=== PATIENT | male | born 1955 | race African-American/Black ===

== ENCOUNTER 2016-12-03 15:49 | Inpatient (IN) | payer MEDICAID ==
[~2016-12-03] VITALS: Ht 172.7 cm; Wt 54.1 kg
[~2016-12-03 15:49] MED LIST: ACHD5005 PO; AML5T; AMT10T; BISA10SU58 RC; BSC10SU PR; CARB15DR74 OU; CEFD300C3 PO; CODE-54; CYCL10TA45; CYCL10TA9 PO; CYCL5TAB11 PO; DCS100C PO; DEXT1DRO8 OU; DOCU100C37 PO; DRNB2.5C PO; DRON2.5C PO; ETD400T; FERR-57 PO; GBPN300C; GFN600TCR PO; HONE15GE TP; HYDR-2890 PO; HYDR-2997 PO; HYDR-3820 PO; HYDROCODONE; LOPE2TAB23 PO; MAG-5 PO; MAG355OR17 PO; MAGN-47 PO; MAGN-77 PO; MILK OF MAGNESIA CON PO; MULT-608 PO; Mucinex; Mucinex PO; Mylanta PO; NA P133E22 RC; OMEP20TA2 PO; OXB5TCR; OXYB10TA PO; OXYB10TA8 PO; POLY17PO23 PO; RNT150T PO; SERT50TA PO; SERT50TA9 PO; SNN187T PO; SODIUM PHOSPHATE PR; ZINC100T3 PO; [UNRECOGNIZED DRUG - OTHER]
--- NOTE | 2016-12-03 16:07 | ED Neurological Problem ---
General Chief Complaint: General Problems/Pain Stated Complaint: WEAKNESS Source: patient, RN notes reviewed Exam Limitations: clinical condition, physical impairment History of Present Illness Time seen by provider: 16:08 Initial Comments Presents POV from rehab center c/ complaint of not feeling well today. c/o numbness/tingling in his legs. Patient is a paraplegic. Patient not a good historian. Long hx of multiple advanced decubitus ulcers. No known fever. No N/V. Timing/Duration: 4-6 hours, constant Severity: moderate Associated Symptoms: numbness in legs/feet (???) paresthesia (?) tingling in legs/feet (???) weakness (generalized) Allergies and Home Medications Allergies Coded Allergies: No Known Drug Allergies (Verified , 05/19/14) Home Medications TOP BID (Reported) APPLY TO OPEN AREAS ON PENIS AND SCROTUM Bisacodyl 10 Mg Supp.rect 10 MG RC DAILY PRN PRN CONSTIPATION (Reported) Cyclobenzaprine HCl 10 Mg Tablet 10 MG PO Q8H (Reported) Docusate Sodium 100 Mg Capsule 100 MG PO Q12H PRN PRN CONSTIPATION (Reported) Hydrocodone/Acetaminophen 1 Each Tablet 1 TAB PO Q4H (Reported) Mag Hydrox/Al Hydrox/Simeth 360 Ml Oral.susp 30 ML PO Q4H PRN PRN INDIGESTION ( Reported) Oxybutynin Chloride 10 Mg Tab.er.24 10 MG PO DAILY (Reported) Polyethylene Glycol 17 Gm Pack 17 GM PO DAILY PRN PRN CONSTIPATION (Reported) Senna 8.6 Mg Tab 1-4 TAB PO DAILY PRN PRN CONSTIPATION (Reported) Sertraline HCl 100 Mg Tablet 100 MG PO DAILY (Reported) Sodium Hypochlorite 473 Ml Solution TOP BID (Reported) APPLY TO WOUND BEDS EVERY DAY AND FISH DRIER FOR WOUND CARE, CLEANSE WOUNDS WITH WOUND CLEANSER, LIGHTLY PACK WOUNDS WITH DAKINS SOAKED GAUZE, COVER WITH MAINTENANCE DRESSING Constitutional: see HPI weakness Skin: other ((+) chronic decubitus ulcers) Psychiatric/Neurological: See HPI Depressed Unable to Move Lower Ext Other (c/ o pins/needles sensation in BLE despite being paraplegic.) All Other Systems Reviewed Negative Unless Noted: Yes (Negative excepted noted.) Past Azwtadx-Brzeki-Dsngzg Hx Patient Social History Former Smoker/When Quit: Aug 15, 2010 Recent Foreign Travel: No Contact w/Someone Who Travel: No Surgeries HX Surgeries: Yes (WD SURGERIES) Respiratory Hx Respiratory Disorders: No Cardiovascular Hx Cardiac Disorders: No Neurological Hx Neurological Disorders: Yes (PARAPLEGIC) Reproductive System Hx Reproductive Disorders: No Sexually Transmitted Disease: No Genitourinary Hx Genitourinary Disorders: Yes (HEMATURIA) Gastrointestinal Hx Gastrointestinal Disorders: No Musculoskeletal Hx Musculoskeletal Disorders: Yes (ARTHRITIS) Musculoskeletal Disorders: Arthritis, Scoliosis Endocrine Hx Endocrine Disorders: No HEENT HX ENT Disorders: Yes Loss of Vision: Denies Hearing Impairment: Denies Cancer Hx Cancer: No Psychosocial Hx Psychiatric Problems: Yes Integumentary HX Skin/Integumentary Disorder: Yes (MULTIPLE DECUB) Blood Transfusions Hx Blood Disorders: No Family Medical History Family Medial History: Patient reports no known family medical history. Physical Exam Vital Signs Vital Sign - Last 12Hours 12/03/16 15:57 Temp 96.4 Pulse 92 Resp 20 B/P 71/40 Pulse Ox 99 O2 Delivery Room Air Capillary Refill : General Appearance: no apparent distress thin HEENT: other (dry oropharynx) Neck: supple Respiratory: lungs clear no respiratory distress Cardiovascular: regular rate, rhythm Gastrointestinal: other (flat) Extremities: other (patient laying on his right side. Has an extensive decubitus left hip/buttock area initially c/ a fecal stained dressing in place. Large amount of feces in wound as well. Patient has the strong odor of rotting tissue/gangrene.) Neurologic/Psychiatric: alert depressed affect Crainal Nerves: normal hearing normal speech Motor/Sensory: other ((+) paraplegia BLE) Skin: cool other (has multiple chronic pressure ulcers/wounds; smells strongly of necrotic tissue/gangrene. ) Progress/Results/Core Measures Results/Orders Lab Results Laboratory Tests Test 12/03/16 16:48 12/03/16 18:05 12/03/16 18:36 Range/Units Alanine Aminotransferase (ALT/SGPT) 12 0-55 U/L Albumin 1.2 L 3.2-4.5 G/DL Alkaline Phosphatase 158 H 40-136 U/L Anion Gap 14 5-14 MMOL/L Anisocytosis MODERATE Aspartate Amino Transf (AST/SGOT) 21 5-34 U/L BUN/Creatinine Ratio 17 Band Neutrophils 30 % Basophils # (Auto) 0.0 0.0-0.1 10^3/uL Basophils % (Manual) 0 % Basophils (%) (Auto) 0 0-10 % Blood Urea Nitrogen 16 7-18 MG/DL Calcium Level 6.2 L 8.5-10.1 MG/DL Carbon Dioxide Level 14 L 21-32 MMOL/L Chloride Level 105 98-107 MMOL/L Creatinine 0.96 0.60-1.30 MG/DL Eosinophils # (Auto) 0.0 0.0-0.3 10^3/uL Eosinophils % (Manual) 0 % Eosinophils (%) (Auto) 0 0-10 % Estimat Glomerular Filtration Rate > 60 Glucose Level 97 70-105 MG/DL Hematocrit 31 L 40-54 % Hemoglobin 8.9 L 13.3-17.7 G/DL Hypochromasia SLIGHT Lactic Acid Level 8.4 *H 7.7 *H 0.5-2.0 MMOL/L Lymphocytes # (Auto) 0.9 L 1.0-4.0 X 10^3 Lymphocytes % (Manual) 14 % Lymphocytes (%) (Auto) 6 L 12-44 % Magnesium Level 3.0 H 1.8-2.4 MG/DL Mean Corpuscular Hemoglobin 22 L 25-34 PG Mean Corpuscular Hemoglobin Concent 29 L 32-36 G/DL Mean Corpuscular Volume 74 L 80-99 FL Mean Platelet Volume 10.5 H 7.4-10.4 FL Microcytosis SLIGHT Monocytes # (Auto) 0.7 0.0-1.0 X 10^3 Monocytes % (Manual) 5 % Monocytes (%) (Auto) 5 0-12 % Neutrophils # (Auto) 13.0 H 1.8-7.8 X 10^3 Neutrophils % (Manual) 51 % Neutrophils (%) (Auto) 89 H 42-75 % Platelet Count 298 130-400 10^3/uL Potassium Level 4.8 3.6-5.0 MMOL/L Red Blood Count 4.12 L 4.35-5.85 10^6/uL Red Cell Distribution Width 25.4 H 10.0-14.5 % Sodium Level 133 L 135-145 MMOL/L Spherocytes SLIGHT Target Cells SLIGHT Total Bilirubin 0.9 0.1-1.0 MG/DL Total Protein 7.6 6.4-8.2 G/DL White Blood Count 14.5 H 4.3-11.0 10^3/uL Urine Bacteria LARGE H /HPF Urine Bilirubin NEGATIVE NEGATIVE Urine Casts NONE /LPF Urine Clarity VERY CLOUDY H Urine Color BROWN H Urine Crystals NONE /LPF Urine Culture Indicated YES Urine Glucose (UA) NEGATIVE NEGATIVE Urine Ketones 2+ H NEGATIVE Urine Leukocyte Esterase 3+ H NEGATIVE Urine Mucus NEGATIVE /LPF Urine Nitrite NEGATIVE NEGATIVE Urine Protein 3+ H NEGATIVE Urine RBC 10-25 H /HPF Urine RBC (Auto) 4+ H NEGATIVE Urine Specific [place] 1.010 L 1.016-1.022 Urine Urobilinogen 12 H NORMAL MG/DL Urine WBC 25-50 H /HPF Urine pH 7 5-9 Micro Results Microbiology 12/03/16 Urine Culture - Preliminary, Resulted Providencia Species My Orders Orders-GREGG CHANDLER DO Saline Lock/Iv-Start (12/03/16 16:09) Cbc With Automated Diff (12/03/16 16:09) Comprehensive Metabolic Panel (12/03/16 16:09) Magnesium (12/03/16 16:09) Ua Culture If Indicated (12/03/16 16:09) Lactic Acid Analyzer (12/03/16 16:28) Blood Culture (12/03/16 16:28) Lactated Ringers (Lr 1000 Ml Iv Solution (12/03/16 17:15) Manual Differential (12/03/16 16:48) Piperacillin Sodium/Tazobactam (Zosyn Vi (12/03/16 17:45) Urine Culture (12/03/16 18:05) Vital Signs/I&O Vital Sign - Last 12Hours 12/03/16 12/03/16 15:57 16:15 Temp 96.4 96.4 Pulse 92 94 Resp 20 24 B/P 71/40 74/55 Pulse Ox 99 96 O2 Delivery Room Air Room Air Departure Communication Time/Spoke to Admitting Phy: 18:00 Impression Impression: Primary Impression: Sepsis Additional Impressions: Paraplegia Decubitus ulcers Disposition: ADMITTED INPATIENT Condition: Critical Decision to Admit Reason: Admit from ER (General) Decision to Admit/Date: Dec 03, 2016 Time/Decision to Admit Time: 18:00 Departure-Patient Inst. Referrals: JEFF CLOUD MD (PCP/Family) Primary Care Physician GREGG CHANDLER DO Dec 03, 2016 16:07
[2016-12-03] MEDS ORDERED: LACTATED RINGERS 1,000 ML IV ONE ×2 (17:15→23:11)
[2016-12-03 17:19] LABS: BASOPHILS % (AUTO) 0 % (0-10); EOSINOPHILS % (AUTO) 0 % (0-10); LYMPHOCYTES # (AUTO) 0.9 X 10^3 (1.0-4.0); LYMPHOCYTES % (AUTO) 6 % (12-44); MEAN CORPUSCULAR HEMOGLOBIN 22 PG (25-34); MEAN CORPUSCULAR HGB CONC 29 G/DL (32-36); MEAN CORPUSCULAR VOLUME 74 FL (80-99); MEAN PLATELET VOLUME 10.5 FL (7.4-10.4); MONOCYTES # (AUTO) 0.7 X 10^3 (0.0-1.0); MONOCYTES % (AUTO) 5 % (0-12); NEUTROPHILS % (AUTO) 89 % (42-75); PLATELET COUNT 298 10^3/uL (130-400); RED BLOOD COUNT 4.12 10^6/uL (4.35-5.85); RED CELL DISTRIBUTION WIDTH 25.4 % (10.0-14.5); WHITE BLOOD COUNT 14.5 10^3/uL (4.3-11.0)
[2016-12-03 17:36] LABS: ALANINE AMINOTRANSFERASE 12 U/L (0-55); ALBUMIN 1.2 G/DL (3.2-4.5); ANION GAP 14 MMOL/L (5-14); ASPARTATE AMINO TRANSFERASE 21 U/L (5-34); BILIRUBIN,TOTAL 0.9 MG/DL (0.1-1.0); BLOOD UREA NITROGEN 16 MG/DL (7-18); BUN/CREATININE RATIO 17; CALCIUM 6.2 MG/DL (8.5-10.1); CARBON DIOXIDE 14 MMOL/L (21-32); CHLORIDE 105 MMOL/L (98-107); CREATININE SERUM 0.96 MG/DL (0.60-1.30); GFR ESTIMATED > 60; GLUCOSE 97 MG/DL (70-105); POTASSIUM 4.8 MMOL/L (3.6-5.0); SODIUM 133 MMOL/L (135-145); TOTAL PROTEIN 7.6 G/DL (6.4-8.2)
[2016-12-03 17:44] LABS: ANISOCYTOSIS MODERATE; BAND NEUTROPHILS 30 %; BASOPHILS % (MANUAL) 0 %; EOSINOPHILS % (MANUAL) 0 %; HYPOCHROMASIA SLIGHT; LYMPHOCYTES % (MANUAL) 14 %; MICROCYTOSIS SLIGHT; NEUTROPHILS % (MANUAL) 51 %; SPHEROCYTES SLIGHT; TARGET CELLS SLIGHT
[2016-12-03] MEDS ORDERED: PIPERACILLIN SODIUM/TAZOBACTAM 4.5 GM in NORMAL SALINE (BAXTER MINI) 100 ML IV ONE (17:45)
[2016-12-03 18:14] LABS: KETONES,URINE 2+ (NEGATIVE); LEUKOCYTE ESTERASE ,URINE 3+ (NEGATIVE); NITRITE,URINE NEGATIVE (NEGATIVE); PH,URINE 7 (5-9); PROTEIN,URINE 3+ (NEGATIVE); UROBILINOGEN,URINE 12 MG/DL (NORMAL)
[2016-12-03 18:26] LABS: BILIRUBIN,URINE NEGATIVE (NEGATIVE); WBC,URINE 25-50 /HPF
[2016-12-03 19:40] VITALS: BP 72/42
[2016-12-03] MEDS: VASOPRESSIN INJECTION 20 UNIT in NS (IVPB) 100 ML IV SCH (19:42)
[2016-12-03] MEDS: PHENYLEPHRINE FOR DRIPS 10 MG in D5W 250 ML (IVPB) 250 ML IV SCH ×2 (19:42→23:08)
[2016-12-03] MEDS: NOREPINEPHRINE FOR DRIPS 4 MG in D5W 250 ML (IVPB) 250 ML IV SCH (19:42)
[2016-12-03] MEDS ORDERED: HYDROCORTISONE 100 MG/2 ML (Solu-CORTEF) VIAL IV SCH (19:45)
[2016-12-03] MEDS ORDERED: inSUlin (REGULAR) HUMAN 1 UNIT/0.01 ML (CHARGE PER UNIT) SC SCH (20:00)
[2016-12-03] MEDS ORDERED: VANCOMYCIN 1250 MG/NS 250 ML IVPB IV NR ×2 (20:00)
[2016-12-03] MEDS ORDERED: CATHETER FLUSH 10 ML SYR IV PRN (20:15)
[2016-12-03 20:25] VITALS: BP 50/32
[2016-12-03 20:30] VITALS: BP 68/44
[2016-12-03] MEDS: NS IV 1000 ML 2,000 ML IV PRN ×2 (20:54→22:51)
[2016-12-03 21:00] VITALS: BP 69/47
[2016-12-03 22:00] VITALS: BP 75/51
[2016-12-03 23:00] VITALS: BP 83/55
[2016-12-03] MEDS: PIPERACILLIN SODIUM/TAZOBACTAM 4.5 GM in NORMAL SALINE (BAXTER MINI) 100 ML IV SCH (23:21)
[2016-12-03] MEDS ORDERED: LACTATED RINGERS 1,000 ML IV SCH (23:30)
[2016-12-03] MEDS: inSUlin (REGULAR) HUMAN 1 UNIT/0.01 ML (CHARGE PER UNIT) SC SCH (23:33)
[2016-12-04] VITALS (37 sets, daily range): BP systolic 81–123; BP diastolic 36–93
[2016-12-04] MEDS: NS IV 1000 ML 1,000 ML IV SCH ×6 (00:14→20:02)
[2016-12-04] MEDS: NOREPINEPHRINE FOR DRIPS 4 MG in D5W 250 ML (IVPB) 250 ML IV SCH ×3 (01:22→15:07)
[2016-12-04 04:40] LABS: BASOPHILS % (AUTO) 0 % (0-10); EOSINOPHILS % (AUTO) 0 % (0-10); LYMPHOCYTES # (AUTO) 0.6 X 10^3 (1.0-4.0); LYMPHOCYTES % (AUTO) 5 % (12-44); MEAN CORPUSCULAR HEMOGLOBIN 21 PG (25-34); MEAN CORPUSCULAR HGB CONC 29 G/DL (32-36); MEAN CORPUSCULAR VOLUME 73 FL (80-99); MEAN PLATELET VOLUME 10.3 FL (7.4-10.4); MONOCYTES # (AUTO) 0.5 X 10^3 (0.0-1.0); MONOCYTES % (AUTO) 4 % (0-12); NEUTROPHILS # (AUTO) 12.7 X 10^3 (1.8-7.8); NEUTROPHILS % (AUTO) 92 % (42-75); PLATELET COUNT 170 10^3/uL (130-400); RED BLOOD COUNT 3.19 10^6/uL (4.35-5.85); RED CELL DISTRIBUTION WIDTH 25.1 % (10.0-14.5); WHITE BLOOD COUNT 13.8 10^3/uL (4.3-11.0)
[2016-12-04 04:51] LABS: PROTHROMBIN TIME PATIENT 30.8 SEC (12.2-14.7)
[2016-12-04 05:02] LABS: ALANINE AMINOTRANSFERASE 11 U/L (0-55); ANION GAP 6 MMOL/L (5-14); ASPARTATE AMINO TRANSFERASE 47 U/L (5-34); BILIRUBIN,TOTAL 1.2 MG/DL (0.1-1.0); BLOOD UREA NITROGEN 16 MG/DL (7-18); BUN/CREATININE RATIO 23; CARBON DIOXIDE 17 MMOL/L (21-32); CHLORIDE 117 MMOL/L (98-107); GFR ESTIMATED > 60; GLUCOSE 93 MG/DL (70-105); MAGNESIUM 2.4 MG/DL (1.8-2.4); PHOSPHORUS 4.5 MG/DL (2.3-4.7); POTASSIUM 3.7 MMOL/L (3.6-5.0); SODIUM 140 MMOL/L (135-145); TOTAL PROTEIN 5.8 G/DL (6.4-8.2)
[2016-12-04 05:04] LABS: CALCIUM 5.2 MG/DL (8.5-10.1)
[2016-12-04] MEDS: PHENYLEPHRINE FOR DRIPS 10 MG in D5W 250 ML (IVPB) 250 ML IV SCH ×5 (05:07→20:03)
[2016-12-04] MEDS: VASOPRESSIN INJECTION 20 UNIT in NS (IVPB) 100 ML IV SCH ×3 (05:07→20:03)
[2016-12-04] MEDS: MAGNESIUM 1 GM/100 ML IVPB 100 ML IV SCH (05:08)
[2016-12-04] MEDS: POTASSIUM CL 10MEQ/50ML IVPB 50 ML IV SCH ×6 (05:08→13:27)
[2016-12-04] MEDS: KCL 20 MEQ TAB (K-DUR) PO SCH (05:09)
[2016-12-04] MEDS: inSUlin (REGULAR) HUMAN 1 UNIT/0.01 ML (CHARGE PER UNIT) SC SCH ×2 (05:09→12:00)
[2016-12-04] MEDS ORDERED: CALCIUM GLUCONATE 10% INJ 4.65 MEQ in NS (IVPB) 50 ML IV ONE (05:30)
[2016-12-04] MEDS: HYDROCORTISONE 100 MG/2 ML (Solu-CORTEF) VIAL IV SCH ×3 (05:42→17:04)
--- NOTE | 2016-12-04 07:06 | Diagnostic Imaging Report ---
INDICATION: Sepsis. COMPARISON: 04/09/2016. FINDINGS: Right IJ central venous catheter has tip at the superior cavoatrial junction. Low lung volumes with bibasilar bronchovascular crowding and subsegmental atelectasis. No focal consolidation. Please note the posterior lower lobes are poorly evaluated by portable radiography. Stable cardiomediastinal silhouette. No pleural effusion or pneumothorax. IMPRESSION: 1. Bibasilar subsegmental atelectasis. No additional focal airspace disease or other acute cardiopulmonary process. Dictated by: Dictated on workstation # [id number]
[2016-12-04] MEDS: PIPERACILLIN SODIUM/TAZOBACTAM 4.5 GM in NORMAL SALINE (BAXTER MINI) 100 ML IV SCH ×2 (08:36→17:04)
[2016-12-04] MEDS: VANCOMYCIN 1 GM/NS 250 ML IVPB IV SCH ×4 (08:36→20:53)
[2016-12-04] MEDS ORDERED: DIPH25TA65 PO (08:45)
[2016-12-04] MEDS ORDERED: SERT100T8 PO (08:45)
[2016-12-04] MEDS ORDERED: [UNRECOGNIZED DRUG - OTHER] TOP (08:54)
[2016-12-04] MEDS ORDERED: SODI473S7 TOP (08:54)
[2016-12-04] MEDS ORDERED: BISA10SU58 RC (08:54)
--- NOTE | 2016-12-04 09:04 | History & Physicial ([facility]) ---
HPI History of Present Illness: 61 yo M from [place] that is a known paraplegic with large decubitus wounds that presented to ER stating that he just didn't feel good. This AM he is not very talkative and does not want to answer my questions other then nodding his head. Denies fever or chills. States that he was feeling pins and needles in his hand and feet. States that he has had decreased appetite but denies N/V. States that wounds do not hurt. He is not sure if they are worse or not then usual. Nurse from [facility] that is known to patient states that he has not been cooperative with cleaning of wounds and have not allowed nurses at facility to do wound care or to clean he up when he has had BM. ER doctor states that wounds were packed with feces. Source: patient, RN/MD, senior care records, old records Exam Limitations: other (Not being cooperative with questioning, not interested in answering questions) Date seen by provider: Dec 04, 2016 Attending Physician Shelly Gonzales MD PCP Joshua Carreno MD Consult Date of Admission Dec 03, 2016 at 18:41 Home Medications Home Medications Reviewed patient Home Medication Reconciliation Form Allergies Coded Allergies: No Known Drug Allergies (Verified , 05/19/14) [id number] Hx Patient Social History Living Status: Living in [place] Alcohol Use: Denies Use Recreational Drug Use: Yes (Hx smoked weed) Smoking Status: Unknown if Ever Smoked Former smoker/When Quit: Aug 15, 2010 Recent Foreign Travel: No Contact w/other who traveled: No Recent Hopitalizations: No Recent Infectious Disease Expo: No Physical Abuse Screen: No Sexual Abuse: No Immunizations Up To Date Date of Influenza Vaccine: Aug 14, 2016 Past Medical History PMHx: Paraplegia Chronic decubitus ulcers Suprapubic catheter in place Family Medical History Family History: Patient reports no known family medical history. Review of Systems ([facility]) Constitutional: No chills, No fever, No weakness EENTM: no symptoms reported Respiratory: no symptoms reportedNo cough, No dyspnea on exertion, No hemoptysis, No short of breath Cardiovascular: no symptoms reportedNo chest pain, No edema, No palpitations Gastrointestinal: no symptoms reportedNo abdominal pain, No constipation, No diarrhea, No nausea, No vomiting Genitourinary: other (Suprapubic cath draining dark urine) Musculoskeletal: no symptoms reported Skin: other (Large wounds present on hips) Psychiatric/Neurological: Denies Headache, TinglingDenies Weakness Reviewed Test Results Reviewed Test Results Lab Laboratory Tests Test 12/03/16 22:00 12/04/16 01:05 12/04/16 04:10 12/04/16 09:15 Range/Units Lactic Acid Level 4.8 *H 3.1 *H 1.8 0.5-2.0 MMOL/L Activated Partial Thromboplast Time 51 H 24-35 SEC Alanine Aminotransferase (ALT/SGPT) 11 16 0-55 U/L Albumin 1.0 L 0.9 L 3.2-4.5 G/DL Alkaline Phosphatase 112 103 40-136 U/L Anion Gap 6 4 L 5-14 MMOL/L Aspartate Amino Transf (AST/SGOT) 47 H 54 H 5-34 U/L BUN/Creatinine Ratio 23 22 Basophils # (Auto) 0.0 0.0-0.1 10^3/uL Basophils (%) (Auto) 0 0-10 % Blood Urea Nitrogen 16 14 7-18 MG/DL Calcium Level 5.2 *L 5.0 *L 8.5-10.1 MG/DL Carbon Dioxide Level 17 L 18 L 21-32 MMOL/L Chloride Level 117 H 118 H 98-107 MMOL/L Creatinine 0.70 0.63 0.60-1.30 MG/DL Eosinophils # (Auto) 0.0 0.0-0.3 10^3/uL Eosinophils (%) (Auto) 0 0-10 % Estimat Glomerular Filtration Rate > 60 > 60 Glucose Level 93 93 70-105 MG/DL Hematocrit 23 L 40-54 % Hemoglobin 6.8 #*L 13.3-17.7 G/DL INR Comment 3.0 H 0.8-1.4 Lymphocytes # (Auto) 0.6 L 1.0-4.0 X 10^3 Lymphocytes (%) (Auto) 5 L 12-44 % Magnesium Level 2.4 1.8-2.4 MG/DL Mean Corpuscular Hemoglobin 21 L 25-34 PG Mean Corpuscular Hemoglobin Concent 29 L 32-36 G/DL Mean Corpuscular Volume 73 L 80-99 FL Mean Platelet Volume 10.3 7.4-10.4 FL Monocytes # (Auto) 0.5 0.0-1.0 X 10^3 Monocytes (%) (Auto) 4 0-12 % Neutrophils # (Auto) 12.7 H 1.8-7.8 X 10^3 Neutrophils (%) (Auto) 92 H 42-75 % Phosphorus Level 4.5 2.3-4.7 MG/DL Platelet Count 170 130-400 10^3/uL Potassium Level 3.7 3.3 L 3.6-5.0 MMOL/L Prothrombin Time 30.8 H 12.2-14.7 SEC Red Blood Count 3.19 L 4.35-5.85 10^6/uL Red Cell Distribution Width 25.1 H 10.0-14.5 % Sodium Level 140 140 135-145 MMOL/L Total Bilirubin 1.2 H 1.4 H 0.1-1.0 MG/DL Total Protein 5.8 L 5.6 L 6.4-8.2 G/DL White Blood Count 13.8 H 4.3-11.0 10^3/uL Test 12/04/16 12:29 12/04/16 15:00 12/04/16 17:00 Range/Units Glucometer 72 70-110 MG/DL Basophils # (Auto) 0.0 0.0-0.1 10^3/uL Basophils (%) (Auto) 0 0-10 % Eosinophils # (Auto) 0.0 0.0-0.3 10^3/uL Eosinophils (%) (Auto) 0 0-10 % Hematocrit 27 L 40-54 % Hemoglobin 8.5 #L 13.3-17.7 G/DL Lymphocytes # (Auto) 0.7 L 1.0-4.0 X 10^3 Lymphocytes (%) (Auto) 5 L 12-44 % Mean Corpuscular Hemoglobin 24 L 25-34 PG Mean Corpuscular Hemoglobin Concent 32 32-36 G/DL Mean Corpuscular Volume 76 L 80-99 FL Mean Platelet Volume 10.6 H 7.4-10.4 FL Monocytes # (Auto) 0.5 0.0-1.0 X 10^3 Monocytes (%) (Auto) 4 0-12 % Neutrophils # (Auto) 12.6 H 1.8-7.8 X 10^3 Neutrophils (%) (Auto) 91 H 42-75 % Platelet Count 193 130-400 10^3/uL Red Blood Count 3.49 L 4.35-5.85 10^6/uL Red Cell Distribution Width 24.7 H 10.0-14.5 % White Blood Count 13.8 H 4.3-11.0 10^3/uL Anion Gap 2 L 5-14 MMOL/L BUN/Creatinine Ratio 20 Blood Urea Nitrogen 13 7-18 MG/DL Calcium Level 5.3 *L 8.5-10.1 MG/DL Carbon Dioxide Level 18 L 21-32 MMOL/L Chloride Level 119 H 98-107 MMOL/L Creatinine 0.65 0.60-1.30 MG/DL Estimat Glomerular Filtration Rate > 60 Glucose Level 117 H 70-105 MG/DL Potassium Level 3.8 3.6-5.0 MMOL/L Sodium Level 139 135-145 MMOL/L Radiology Date of Exam: 12/04/16 CHEST 1 VIEW, AP/PA ONLY INDICATION: Sepsis. COMPARISON: 04/09/2016. FINDINGS: Right IJ central venous catheter has tip at the superior cavoatrial junction. Low lung volumes with bibasilar bronchovascular crowding and subsegmental atelectasis. No focal consolidation. Please note the posterior lower lobes are poorly evaluated by portable radiography. Stable cardiomediastinal silhouette. No pleural effusion or pneumothorax. IMPRESSION: 1. Bibasilar subsegmental atelectasis. No additional focal airspace disease or other acute cardiopulmonary process. Physical Exam-([facility]) Physical Exam Vital Signs VS - Last 72 Hours, by Label 12/03/16 12/03/16 12/03/16 12/03/16 15:57 16:15 19:23 19:40 Temp 96.4 96.4 96.9 96.0 Pulse 92 94 91 91 Resp 20 24 20 18 B/P 71/40 74/55 72/42 Pulse Ox 99 96 92 97 O2 Delivery Room Air Room Air Room Air 12/03/16 12/03/16 12/03/16 12/03/16 20:04 20:25 20:30 21:00 Pulse 92 92 92 91 Resp 18 13 20 B/P 50/32 68/44 69/47 Pulse Ox 96 98 97 O2 Delivery Room Air Room Air Room Air 12/03/16 12/03/16 12/04/16 12/04/16 22:00 23:00 00:00 00:00 Temp 96.6 Pulse 88 89 89 Resp 18 18 17 B/P 75/51 83/55 81/56 Pulse Ox 100 100 100 100 O2 Delivery Nasal Cannula Room Air Nasal Cannula O2 Flow Rate 2.00 2.00 2.00 12/04/16 12/04/16 12/04/16 12/04/16 00:49 01:00 01:08 01:22 Pulse 98 96 96 Resp 16 B/P 85/57 Pulse Ox 100 98 O2 Delivery Nasal Cannula O2 Flow Rate 2.00 2.00 12/04/16 12/04/16 12/04/16 12/04/16 02:00 03:00 04:00 04:00 Temp 96.3 Pulse 97 98 98 Resp 14 13 14 B/P 100/64 98/67 101/66 Pulse Ox 99 95 97 100 O2 Delivery Nasal Cannula Nasal Cannula Nasal Cannula O2 Flow Rate 2.00 2.00 2.00 2.00 12/04/16 12/04/16 12/04/16 12/04/16 04:57 04:57 05:00 06:00 Pulse 98 98 Resp 15 16 B/P 103/68 102/75 Pulse Ox 97 97 96 97 O2 Delivery Nasal Cannula Room Air O2 Flow Rate 2.00 2.00 12/04/16 12/04/16 12/04/16 12/04/16 07:00 07:00 07:01 07:15 Temp 96.7 96.8 Pulse 101 100 101 98 Resp 30 26 14 B/P 97/74 97/74 90/56 Pulse Ox 97 98 100 O2 Delivery Room Air O2 Flow Rate 2.00 12/04/16 12/04/16 12/04/16 12/04/16 08:00 09:00 09:30 10:00 Temp 96.0 96.5 Pulse 99 97 90 93 Resp 15 19 16 14 B/P 100/70 104/69 90/62 96/67 Pulse Ox 98 96 96 98 O2 Delivery Room Air Room Air Room Air 12/04/16 12/04/16 12/04/16 12/04/16 11:00 12:00 13:00 13:00 Temp 96.9 Pulse 92 95 98 98 Resp 14 16 16 B/P 113/83 100/85 101/79 Pulse Ox 99 95 97 O2 Delivery Room Air Room Air Room Air 12/04/16 12/04/16 12/04/16/31/17 14:00 15:00 15:07 16:00 Temp 96.9 96.5 Pulse 101 105 105 Resp 15 10 16 B/P 91/64 91/64 99/88 Pulse Ox 93 96 96 O2 Delivery Room Air Room Air Room Air Room Air 12/04/16 12/04/16 12/04/16 12/04/16 16:00 17:00 18:00 19:55 Pulse 105 104 103 Resp 18 18 18 B/P 95/67 94/71 101/68 Pulse Ox 93 94 94 94 O2 Delivery Room Air Room Air Room Air Capillary Refill : Less Than 3 Seconds General Appearance: WD/WN no apparent distress thin Eyes: Bilateral Eye EOMI, Bilateral Eye PERRL Neck: non-tender full range of motion supple normal inspection other (IJ on Right) Respiratory: chest non-tender lungs clear normal breath sounds no respiratory distress no accessory muscle use Cardiovascular: regular rate, rhythm no edema no gallop no JVD no murmur Peripheral Pulses: 0 Carotid (R), 0 Carotid (L), 0 Femoral (R), 0 Femoral (L), 0 Dorsalis Pedis (R), 0 Left Dors-Pedis (L), 0 Radial Pulses (R), 0 Radial Pulses (L) Gastrointestinal: normal bowel sounds non tender soft no organomegaly no pulsatile mass other (suprapubic cath present) Extremities: no pedal edema no calf tenderness normal capillary refill other ( + contractures, limited range of motion) 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 alert oriented x 3 Skin: other (Decubitus wounds present on hips bilaterally and sacrum) Lymphatic: no adenopathy Assessment/Plan Assessment/Plan Admission Dx Severe Sepsis Multiple Decubitus Wounds Severe Anemia likely mixed iron Def with chronic disease Severe PEM Abnormal UA Hypocalcemia Hypokalemia Paraplegia Chronic indwelling Suprapubic Catheter Plan 61 yo paraplegic M that presents with large decubitus ulcers in Severe Sepsis Severe Sepsis - Continue IV fluid hydration, Blood pressure improving, has not required pressors - Lactic acidosis resolved with hydration - Continue Zosyn/Vancomycin D2 Multiple Decubitus Wounds - Wound care consulted, appreciate recs Elevated Bilirubin: likely 2/2 to Above Severe Anemia likely mixed iron Def with chronic disease - s/p 1 unit pRBCs - Iron studies pending Severe PEM - Add protein shake for improved wound healing Abnormal UA: Likely 2/2 to indwelling catheter, not likely source of infection - Culture pending Hypocalcemia: Replaced x3 today, repeat level in AM Hypokalemia: Replaced x2, repeat level in AM Paraplegia - PT ordered Chronic indwelling Suprapubic Catheter: routine care FEN: Regular diet with protein shake with meals DVT PPX: SCDs, will start lovenox if hgb normalizes Dispo: Admit to ICU Diagnosis/Problems: Clinical Quality Measures DVT/VTE Risk/Contraindication: Risk Factor Score Per Nursin RFS Level Per Nursing on Admit: 4+=Very High Copy Copies To 1: [facility], SHELLY Brown MD Dec 04, 2016 09:04
[2016-12-04] MEDS ORDERED: ANTACID SUSP 30 ML UDC (MYLANTA) PO PRN (09:30)
[2016-12-04] MEDS ORDERED: BISACODYL 10 MG SUPP (DULCOLAX) RC PRN (09:30)
[2016-12-04] MEDS: CYCLOBENZAPRINE 10 MG (FLEXERIL) TAB PO SCH ×3 (09:30→21:42)
[2016-12-04] MEDS ORDERED: DOCUSATE SODIUM 100 MG (COLACE) CAP PO PRN (09:30)
[2016-12-04] MEDS: SERTRALINE 100 MG (ZOLOFT) TAB PO SCH (09:41)
[2016-12-04] MEDS: OXYBUTYNIN (DITROPAN) 5 MG TAB PO SCH ×2 (09:45→21:42)
[2016-12-04 09:49] LABS: ALANINE AMINOTRANSFERASE 16 U/L (0-55); ALBUMIN 0.9 G/DL (3.2-4.5); ANION GAP 4 MMOL/L (5-14); ASPARTATE AMINO TRANSFERASE 54 U/L (5-34); BILIRUBIN,TOTAL 1.4 MG/DL (0.1-1.0); BLOOD UREA NITROGEN 14 MG/DL (7-18); BUN/CREATININE RATIO 22; CARBON DIOXIDE 18 MMOL/L (21-32); CHLORIDE 118 MMOL/L (98-107); CREATININE SERUM 0.63 MG/DL (0.60-1.30); GFR ESTIMATED > 60; GLUCOSE 93 MG/DL (70-105); POTASSIUM 3.3 MMOL/L (3.6-5.0); SODIUM 140 MMOL/L (135-145); TOTAL PROTEIN 5.6 G/DL (6.4-8.2)
[2016-12-04] MEDS ORDERED: CALCIUM GLUCONATE 10% INJ 4.65 MEQ in NS (IVPB) 50 ML IV NR ×2 (10:45→18:30)
--- NOTE | 2016-12-04 11:08 | OPERATIVE REPORT ---
PROCEDURE PHYSICIAN: MORENA DUMONT DATE OF PROCEDURE: 12/03/2016 DIAGNOSIS: 1. Sepsis. 2. Poor venous access. PROCEDURE: 1. Ultrasound localization of right internal jugular vein. 2. Central venous catheter placement. SURGEON: Lokesh INDICATION FOR THE PROCEDURE: This gentleman has been intubated with severe hypotension and sepsis, possibly as a complication of decubitus ulcers and urinary tract infection. He is paraplegic, with long-term medical comorbidities. Due to poor venous access and to facilitate use of vasopressor , I was asked to place a central venous catheter. DESCRIPTION OF PROCEDURE: He was placed in Trendelenburg position and the right side of his neck prepared and draped in the usual sterile manner. Internal jugular vein was localized using a 10 MHz ultrasound probe and a floppy guidewire introduced into the heart. Subcutaneous tract was gently dilated using a silastic sheath and a 16 cm long, triple-lumen central venous catheter advanced using Seldinger technique. All the channels were aspirated and flushed with heparinized saline. The catheter was then secured using a silk suture. He tolerated the procedure reasonably well. Job ID: [id number] Dictated Date: 12/04/2016 08:11:30 Software Support Engineer Date: 12/04/2016 11:05:08 / min [email or web address]
[2016-12-04 15:27] LABS: BASOPHILS % (AUTO) 0 % (0-10); EOSINOPHILS % (AUTO) 0 % (0-10); LYMPHOCYTES # (AUTO) 0.7 X 10^3 (1.0-4.0); LYMPHOCYTES % (AUTO) 5 % (12-44); MEAN CORPUSCULAR HEMOGLOBIN 24 PG (25-34); MEAN CORPUSCULAR HGB CONC 32 G/DL (32-36); MEAN CORPUSCULAR VOLUME 76 FL (80-99); MEAN PLATELET VOLUME 10.6 FL (7.4-10.4); MONOCYTES # (AUTO) 0.5 X 10^3 (0.0-1.0); MONOCYTES % (AUTO) 4 % (0-12); NEUTROPHILS # (AUTO) 12.6 X 10^3 (1.8-7.8); NEUTROPHILS % (AUTO) 91 % (42-75); PLATELET COUNT 193 10^3/uL (130-400); RED BLOOD COUNT 3.49 10^6/uL (4.35-5.85); RED CELL DISTRIBUTION WIDTH 24.7 % (10.0-14.5); WHITE BLOOD COUNT 13.8 10^3/uL (4.3-11.0)
[2016-12-04 17:36] LABS: ANION GAP 2 MMOL/L (5-14); BLOOD UREA NITROGEN 13 MG/DL (7-18); BUN/CREATININE RATIO 20; CARBON DIOXIDE 18 MMOL/L (21-32); CHLORIDE 119 MMOL/L (98-107); CREATININE SERUM 0.65 MG/DL (0.60-1.30); GFR ESTIMATED > 60; GLUCOSE 117 MG/DL (70-105); POTASSIUM 3.8 MMOL/L (3.6-5.0); SODIUM 139 MMOL/L (135-145)
[2016-12-04 17:44] LABS: CALCIUM 5.3 MG/DL (8.5-10.1)
[2016-12-04] MEDS ORDERED: CALCIUM GLUC. 10% 4.65 MEQ/10 ML VIAL IV ONE (18:00)
--- NOTE | 2016-12-04 19:56 | Wound Care Progress Note ---
Subjective Subjective Subjective/Events-last exam 61 year old male known to me from multiple previous admissions with extensive, confluent pressure ulceration Of bilateral hips, ischial prominences, and sacrum. The patient has paraplegia, malnutrition and has not adhered to off- losding recommendations in the past. PMH: Paraplegia, indwelling suprapubic catheter, tobacco abuse. FSH: no interval change. Review of Systems General: Chills Pulmonary: Dyspnea Cardiovascular: No: Chest Pain Objective Exam Last Set of Vital Signs Vital Signs Date Time Temp Pulse Resp B/P Pulse Ox O2 Delivery O2 Flow Rate FiO2 12/04/16 18:00 103 18 101/68 94 Room Air 12/04/16 16:00 96.5 12/04/16 07:01 2.00 Capillary Refill : Less Than 3 Seconds I&O Intake and Output 12/04/16 00:00 Intake Total 2387.5 ml Output Total 150 ml Balance 2237.5 ml Intake Oral 25 ml IV Total 2362.5 ml Output Urine Total 150 ml General: Alert, Mild Distress Lungs: Other (some labored breathing) Neuro: Other (confused.) Results Lab Laboratory Tests 12/03/16 22:00: Lactic Acid Level 4.8*H 12/04/16 01:05: Lactic Acid Level 3.1*H 12/04/16 04:10: Lactic Acid Level 1.8, Activated Partial Thromboplast Time 51H, Alanine Aminotransferase (ALT/SGPT) 11, Albumin 1.0L, Alkaline Phosphatase 112, Anion Gap 6, Aspartate Amino Transf (AST/SGOT) 47H, BUN/Creatinine Ratio 23, Basophils # (Auto) 0.0, Basophils (%) (Auto) 0, Blood Urea Nitrogen 16, Calcium Level 5.2*L, Carbon Dioxide Level 17L, Chloride Level 117H, Creatinine 0.70, Eosinophils # (Auto) 0.0, Eosinophils (%) (Auto) 0, Estimat Glomerular Filtration Rate > 60, Glucose Level 93, Hematocrit 23L, Hemoglobin 6.8#*L, INR Comment 3.0H, Lymphocytes # (Auto) 0.6L, Lymphocytes (%) (Auto) 5L, Magnesium Level 2.4, Mean Corpuscular Hemoglobin 21L, Mean Corpuscular Hemoglobin Concent 29L, Mean Corpuscular Volume 73L, Mean Platelet Volume 10.3, Monocytes # (Auto) 0.5, Monocytes (%) (Auto) 4, Neutrophils # (Auto) 12.7H, Neutrophils (%) (Auto) 92H, Phosphorus Level 4.5, Platelet Count 170, Potassium Level 3.7, Prothrombin Time 30.8H, Red Blood Count 3.19L, Red Cell Distribution Width 25.1H, Sodium Level 140, Total Bilirubin 1.2H, Total Protein 5.8L, White Blood Count 13.8H 12/04/16 09:15: Alanine Aminotransferase (ALT/SGPT) 16, Albumin 0.9L, Alkaline Phosphatase 103, Anion Gap 4L, Aspartate Amino Transf (AST/SGOT) 54H, BUN/Creatinine Ratio 22, Blood Urea Nitrogen 14, Calcium Level 5.0*L, Carbon Dioxide Level 18L, Chloride Level 118H, Creatinine 0.63, Estimat Glomerular Filtration Rate > 60, Glucose Level 93, Potassium Level 3.3L, Sodium Level 140, Total Bilirubin 1.4H, Total Protein 5.6L 12/04/16 12:29: Glucometer 72 12/04/16 15:00: Basophils # (Auto) 0.0, Basophils (%) (Auto) 0, Eosinophils # (Auto) 0.0, Eosinophils (%) (Auto) 0, Hematocrit 27L, Hemoglobin 8.5#L, Lymphocytes # (Auto ) 0.7L, Lymphocytes (%) (Auto) 5L, Mean Corpuscular Hemoglobin 24L, Mean Corpuscular Hemoglobin Concent 32, Mean Corpuscular Volume 76L, Mean Platelet Volume 10.6H, Monocytes # (Auto) 0.5, Monocytes (%) (Auto) 4, Neutrophils # ( Auto) 12.6H, Neutrophils (%) (Auto) 91H, Platelet Count 193, Red Blood Count 3.49L, Red Cell Distribution Width 24.7H, White Blood Count 13.8H 12/04/16 17:00: Anion Gap 2L, BUN/Creatinine Ratio 20, Blood Urea Nitrogen 13, Calcium Level 5.3 *L, Carbon Dioxide Level 18L, Chloride Level 119H, Creatinine 0.65, Estimat Glomerular Filtration Rate > 60, Glucose Level 117H, Potassium Level 3.8, Sodium Level 139 Microbiology 12/03/16 Blood Culture - Preliminary, Resulted No growth 12/03/16 Urine Culture - Preliminary, Resulted Providencia Species 12/03/16 Gram Stain - Final, Resulted 12/03/16 Wound Culture - Preliminary, Resulted Probable E.coli Probable Enterococcus Species Assessment/Plan Assessment/Plan Assessment/Plan 1. complex confluent chronic, infected pressure ulcers of bilateral hips, ischia, perineum. 2. Malnutrition Plan: will observe, but little can be done to reverse decline of wounds without cooperation of patient and family. ERMIAS AMARO MD Dec 04, 2016 19:56
[2016-12-04 23:12] LABS: BASOPHILS % (AUTO) 0 % (0-10); EOSINOPHILS % (AUTO) 0 % (0-10); LYMPHOCYTES # (AUTO) 0.9 X 10^3 (1.0-4.0); LYMPHOCYTES % (AUTO) 6 % (12-44); MEAN CORPUSCULAR HEMOGLOBIN 24 PG (25-34); MEAN CORPUSCULAR HGB CONC 31 G/DL (32-36); MEAN CORPUSCULAR VOLUME 78 FL (80-99); MEAN PLATELET VOLUME 10.3 FL (7.4-10.4); MONOCYTES # (AUTO) 0.6 X 10^3 (0.0-1.0); MONOCYTES % (AUTO) 4 % (0-12); NEUTROPHILS # (AUTO) 13.3 X 10^3 (1.8-7.8); NEUTROPHILS % (AUTO) 90 % (42-75); PLATELET COUNT 199 10^3/uL (130-400); RED BLOOD COUNT 3.16 10^6/uL (4.35-5.85); RED CELL DISTRIBUTION WIDTH 24.7 % (10.0-14.5); WHITE BLOOD COUNT 14.9 10^3/uL (4.3-11.0)
[2016-12-04 23:31] LABS: ALANINE AMINOTRANSFERASE 20 U/L (0-55); ANION GAP 6 MMOL/L (5-14); ASPARTATE AMINO TRANSFERASE 54 U/L (5-34); BILIRUBIN,TOTAL 1.9 MG/DL (0.1-1.0); BLOOD UREA NITROGEN 12 MG/DL (7-18); BUN/CREATININE RATIO 17; CARBON DIOXIDE 14 MMOL/L (21-32); CHLORIDE 117 MMOL/L (98-107); CREATININE SERUM 0.69 MG/DL (0.60-1.30); GFR ESTIMATED > 60; GLUCOSE 172 MG/DL (70-105); POTASSIUM 3.6 MMOL/L (3.6-5.0); SODIUM 137 MMOL/L (135-145); TOTAL PROTEIN 5.7 G/DL (6.4-8.2)
[2016-12-04 23:33] LABS: CALCIUM 5.6 MG/DL (8.5-10.1)
[2016-12-05] VITALS (54 sets, daily range): BP systolic 94–145; BP diastolic 46–97
[2016-12-05] MEDS ORDERED: ALBUMIN 25% 25 GM/100 ML 200 ML IV ONE (00:44)
[2016-12-05] MEDS ORDERED: CALCIUM GLUC. 10% 4.65 MEQ/10 ML VIAL ONE (00:44)
[2016-12-05] MEDS ORDERED: SODIUM BICARB 8.4% 50 MEQ/50 ML (ABBOTT) SYR ONE (00:44)
[2016-12-05] MEDS ORDERED: NS (IVPB) 50 ML ONE (00:45)
[2016-12-05] MEDS ORDERED: NS (IVPB) 100 ML ONE (00:46)
[2016-12-05] MEDS: PHENYLEPHRINE FOR DRIPS 10 MG in D5W 250 ML (IVPB) 250 ML IV SCH ×6 (00:52→20:11)
[2016-12-05] MEDS: PIPERACILLIN SODIUM/TAZOBACTAM 4.5 GM in NORMAL SALINE (BAXTER MINI) 100 ML IV SCH (00:57)
[2016-12-05] MEDS: HYDROCORTISONE 100 MG/2 ML (Solu-CORTEF) VIAL IV SCH ×4 (00:57→18:40)
[2016-12-05] MEDS: NOREPINEPHRINE FOR DRIPS 4 MG in D5W 250 ML (IVPB) 250 ML IV SCH ×4 (00:59→18:22)
[2016-12-05] MEDS ORDERED: ALBUMIN 25% 25 GM/100 ML 100 ML IV ONE (01:30)
[2016-12-05] MEDS ORDERED: CALCIUM GLUCONATE 10% INJ 4.65 MEQ in NS (IVPB) 50 ML IV ONE (01:30)
[2016-12-05] MEDS ORDERED: SODIUM BICARB 8.4% 50 MEQ/50 ML (ABBOTT) SYR IV ONE (01:30)
[2016-12-05] MEDS: NS IV 1000 ML 1,000 ML IV SCH ×4 (03:15→23:28)
[2016-12-05 03:30] LABS: ANION GAP 7 MMOL/L (5-14); BLOOD UREA NITROGEN 10 MG/DL (7-18); BUN/CREATININE RATIO 16; CALCIUM 6.7 MG/DL (8.5-10.1); CARBON DIOXIDE 18 MMOL/L (21-32); CHLORIDE 118 MMOL/L (98-107); CREATININE SERUM 0.61 MG/DL (0.60-1.30); GFR ESTIMATED > 60; GLUCOSE 99 MG/DL (70-105); MAGNESIUM 2.2 MG/DL (1.8-2.4); POTASSIUM 3.1 MMOL/L (3.6-5.0); SODIUM 143 MMOL/L (135-145)
[2016-12-05 03:39] LABS: TROPONIN I < 0.30 NG/ML (<0.30)
[2016-12-05 04:02] LABS: BASOPHILS % (AUTO) 0 % (0-10); EOSINOPHILS % (AUTO) 0 % (0-10); LYMPHOCYTES # (AUTO) 0.8 X 10^3 (1.0-4.0); LYMPHOCYTES % (AUTO) 9 % (12-44); MEAN CORPUSCULAR HEMOGLOBIN 24 PG (25-34); MEAN CORPUSCULAR HGB CONC 31 G/DL (32-36); MEAN CORPUSCULAR VOLUME 79 FL (80-99); MEAN PLATELET VOLUME 9.8 FL (7.4-10.4); MONOCYTES # (AUTO) 0.4 X 10^3 (0.0-1.0); MONOCYTES % (AUTO) 4 % (0-12); NEUTROPHILS # (AUTO) 7.4 X 10^3 (1.8-7.8); NEUTROPHILS % (AUTO) 86 % (42-75); PLATELET COUNT 190 10^3/uL (130-400); RED BLOOD COUNT 2.38 10^6/uL (4.35-5.85); RED CELL DISTRIBUTION WIDTH 24.1 % (10.0-14.5); WHITE BLOOD COUNT 8.6 10^3/uL (4.3-11.0)
[2016-12-05 04:15] LABS: INR 3.2 (0.8-1.4)
[2016-12-05 04:25] LABS: ALANINE AMINOTRANSFERASE 15 U/L (0-55); ALBUMIN 1.9 G/DL (3.2-4.5); ANION GAP 8 MMOL/L (5-14); ASPARTATE AMINO TRANSFERASE 40 U/L (5-34); BILIRUBIN,TOTAL 2.9 MG/DL (0.1-1.0); BLOOD UREA NITROGEN 10 MG/DL (7-18); BUN/CREATININE RATIO 16; CALCIUM 6.7 MG/DL (8.5-10.1); CARBON DIOXIDE 18 MMOL/L (21-32); CHLORIDE 119 MMOL/L (98-107); CREATININE SERUM 0.63 MG/DL (0.60-1.30); GFR ESTIMATED > 60; GLUCOSE 106 MG/DL (70-105); MAGNESIUM 2.3 MG/DL (1.8-2.4); PHOSPHORUS 2.1 MG/DL (2.3-4.7); POTASSIUM 3.2 MMOL/L (3.6-5.0); SODIUM 145 MMOL/L (135-145); TOTAL PROTEIN 5.3 G/DL (6.4-8.2)
[2016-12-05] MEDS ORDERED: PANTOPRAZOLE 40 MG/10 ML (PROTONIX) VIAL ONE (04:43)
[2016-12-05] MEDS: VASOPRESSIN INJECTION 20 UNIT in NS (IVPB) 100 ML IV SCH ×3 (04:49→20:11)
[2016-12-05] MEDS: KCL 20 MEQ TAB (K-DUR) PO SCH (04:50)
[2016-12-05] MEDS: POTASSIUM CL 10MEQ/50ML IVPB 50 ML IV SCH ×5 (04:50→06:35)
[2016-12-05] MEDS ORDERED: PANTOPRAZOLE 40 MG/10 ML (PROTONIX) VIAL IV ONE (05:00)
[2016-12-05] MEDS: MAGNESIUM 1 GM/100 ML IVPB 100 ML IV SCH (05:18)
[2016-12-05] MEDS: CYCLOBENZAPRINE 10 MG (FLEXERIL) TAB PO SCH ×3 (06:00→21:54)
--- NOTE | 2016-12-05 06:42 | Pulmonary Consultation ---
History of Present Illness History of Present Illness Date of Consultation 12/05/16 06:37 Date of Admission History of Present Illness 61yo with hx of paraplegia and decubitus ulcers presented to ED on 12/04 with MS change and decreased appetite. Pt has not been allowing RN at facility to do wound care. No n/v. Pt was admitted to ICU initially hypotensive however responded to IVF. ER doctor found wounds to be packed with feces. I am consulted for ICU management. Pt is anemic this morning with Hb 5.8. Pt is being transfused 2 units. Allergies and Home Medications Allergies Coded Allergies: No Known Drug Allergies (Verified , 05/19/14) Home Medications TOP BID (Reported) APPLY TO OPEN AREAS ON PENIS AND SCROTUM Bisacodyl 10 Mg Supp.rect 10 MG RC DAILY PRN PRN CONSTIPATION (Reported) Cyclobenzaprine HCl 10 Mg Tablet 10 MG PO Q8H (Reported) Docusate Sodium 100 Mg Capsule 100 MG PO Q12H PRN PRN CONSTIPATION (Reported) Hydrocodone/Acetaminophen 1 Each Tablet 1 TAB PO Q4H (Reported) Mag Hydrox/Al Hydrox/Simeth 360 Ml Oral.susp 30 ML PO Q4H PRN PRN INDIGESTION ( Reported) Oxybutynin Chloride 10 Mg Tab.er.24 10 MG PO DAILY (Reported) Polyethylene Glycol 17 Gm Pack 17 GM PO DAILY PRN PRN CONSTIPATION (Reported) Senna 8.6 Mg Tab 1-4 TAB PO DAILY PRN PRN CONSTIPATION (Reported) Sertraline HCl 100 Mg Tablet 100 MG PO DAILY (Reported) Sodium Hypochlorite 473 Ml Solution TOP BID (Reported) 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, CLEANSE WOUNDS WITH WOUND CLEANSER, LIGHTLY PACK WOUNDS WITH DAKINS SOAKED GAUZE, COVER WITH MAINTENANCE DRESSING Past Trpybvb-Ulapbe-Yohpno Hx Patient Social History Alcohol Use: Denies Use Recreational Drug Use: Yes (Hx smoked weed) Smoking Status: Unknown if Ever Smoked Former Smoker/When Quit: Aug 15, 2010 Recent Foreign Travel: No Contact w/Someone Who Travel: No Recent Infectious Disease Expo: No Recent Hopitalizations: No Physical Abuse Screen: No Sexual Abuse: No Immunizations Up To Date Date of Influenza Vaccine: Aug 14, 2016 Seasonal Allergies Seasonal Allergies: No Surgeries HX Surgeries: Yes (WD SURGERIES) Respiratory Hx Respiratory Disorders: No Cardiovascular Hx Cardiac Disorders: No Neurological Hx Neurological Disorders: Yes (PARAPLEGIC) Reproductive System Hx Reproductive Disorders: No Sexually Transmitted Disease: No Genitourinary Hx Genitourinary Disorders: Yes (HEMATURIA) Gastrointestinal Hx Gastrointestinal Disorders: No Musculoskeletal Hx Musculoskeletal Disorders: Yes (ARTHRITIS) Musculoskeletal Disorders: Arthritis, Scoliosis Endocrine Hx Endocrine Disorders: No HEENT HX ENT Disorders: Yes Loss of Vision: Denies Hearing Impairment: Denies Cancer Hx Cancer: No Psychosocial Hx Psychiatric Problems: Yes Integumentary HX Skin/Integumentary Disorder: Yes (MULTIPLE DECUB) Blood Transfusions Hx Blood Disorders: No Family Medical History Family Medial History: Patient reports no known family medical history. Review of Systems Constitutional: : Malaise: Sweats: Weakness Respiratory: : Cough: Dry: Shortness of breath Gastrointestinal: No: Abdominal Pain, Constipation, Diarrhea, Hematochezia, Melena, Nausea, Other, Vomiting Neurological: : Weakness Exam Exam Vital Signs Date Time Temp Pulse Resp B/P Pulse Ox O2 Delivery O2 Flow Rate FiO2 12/05/16 06:15 79 24 100/68 100 Room Air 12/05/16 06:00 74 10 107/74 97 12/05/16 06:00 71 11 100/66 90 Room Air 12/05/16 05:45 84 20 104/78 95 Room Air 12/05/16 05:40 97.2 86 11 114/54 98 12/05/16 05:15 93 11 98/59 97 Room Air 12/05/16 05:00 87 15 101/67 99 Room Air 12/05/16 04:45 98 18 98/59 99 Room Air 12/05/16 04:30 88 16 104/65 98 Room Air 12/05/16 04:15 89 17 104/80 91 Room Air 12/05/16 04:00 98 12/05/16 04:00 86 16 110/79 93 Room Air 12/05/16 03:45 92 15 112/76 99 Room Air 12/05/16 03:30 96 16 100/77 97 Room Air 12/05/16 03:15 99 21 103/46 93 Room Air 12/05/16 03:00 100 24 94/67 96 Room Air 12/05/16 02:45 90 13 108/71 91 Room Air 12/05/16 02:30 89 14 105/70 92 Room Air 12/05/16 02:15 96 18 98/76 89 Room Air 12/05/16 02:00 90 14 109/72 94 Room Air 12/05/16 01:45 96 20 104/72 95 Room Air 12/05/16 01:30 90 16 109/71 94 Room Air 12/05/16 01:15 68 10 145/95 95 Room Air 12/05/16 01:00 93 14 114/82 95 Room Air 12/05/16 01:00 93 12/05/16 00:45 92 13 111/79 93 Room Air 12/05/16 00:42 96.8 12/05/16 00:30 94 13 110/52 93 Room Air 12/05/16 00:15 98 36 115/75 95 Room Air 12/05/16 00:00 98 12/05/16 00:00 101 17 106/81 93 Room Air 12/04/16 23:45 101 16 113/82 96 Room Air 12/04/16 23:30 99 16 116/87 91 Room Air 12/04/16 23:15 101 16 118/90 98 Room Air 12/04/16 23:00 100 13 120/93 98 Room Air 12/04/16 22:45 101 20 122/36 94 Room Air 12/04/16 22:30 97 14 107/81 95 Room Air 12/04/16 22:15 103 21 95 Room Air 12/04/16 22:00 104 26 119/82 95 Room Air 12/04/16 21:45 105 17 123/89 96 Room Air 12/04/16 21:30 101 18 101/69 95 Room Air 12/04/16 21:15 101 13 92/70 95 Room Air 12/04/16 21:00 96 18 114/80 95 Room Air 12/04/16 20:45 98 13 96 Room Air 12/04/16 20:30 101 20 96 Room Air 12/04/16 20:15 104 20 96 Room Air 12/04/16 20:00 98 12/04/16 20:00 97.1 103 18 112/83 96 Room Air 12/04/16 19:55 94 12/04/16 19:45 101 20 90/76 96 Room Air 12/04/16 19:30 104 21 95 Room Air 12/04/16 19:15 102 16 90/78 95 Room Air 12/04/16 19:00 100 18 99/55 95 Room Air 12/04/16 19:00 100 12/04/16 18:00 103 18 101/68 94 Room Air 12/04/16 17:00 104 18 94/71 94 Room Air 12/04/16 16:00 105 18 95/67 93 Room Air 12/04/16 16:00 96.5 Room Air 12/04/16 15:07 96.9 105 16 99/88 96 Room Air 12/04/16 15:00 105 10 91/64 96 Room Air 12/04/16 14:00 101 15 91/64 93 Room Air 12/04/16 13:00 98 16 101/79 97 Room Air 12/04/16 13:00 98 12/04/16 12:00 96.9 95 16 100/85 95 Room Air 12/04/16 11:00 92 14 113/83 99 Room Air 12/04/16 10:00 93 14 96/67 98 Room Air 12/04/16 09:30 96.5 90 16 90/62 96 12/04/16 09:00 97 19 104/69 96 Room Air 12/04/16 08:00 96.0 99 15 100/70 98 Room Air 12/04/16 07:15 96.8 98 14 90/56 100 12/04/16 07:01 96.7 101 26 97/74 98 2.00 12/04/16 07:00 100 12/04/16 07:00 101 30 97/74 97 Room Air I & O 12/05/16 07:00 Intake Total 2724 ml Output Total 1650 ml Balance 1074 ml General Appearance: No Apparent Distress WD/WN Neck: Full Range of Motion Normal Inspection Respiratory: No Accessory Muscle Use No Respiratory Distress Decreased Breath Sounds Cardiovascular: Regular Rate, Rhythm No Edema Capillary Refill: Less Than 3 Seconds Peripheral Pulses: 0 Carotid (R), 0 Carotid (L), 0 Femoral (R), 0 Femoral (L), 0 Dorsalis Pedis (R), 0 Left Dors-Pedis (L), 0 Radial Pulses (R), 0 Radial Pulses (L) Gastrointestinal: normal bowel sounds non tender soft no organomegaly no pulsatile mass other (suprapubic cath present) Neurologic/Psychiatric: Alert Oriented x3 Skin: Normal Color Warm/Dry Lymphatic: No Adenopathy Results Lab Laboratory Tests 12/03/16 16:48 12/04/16 04:10 12/04/16 09:15 12/04/16 15:00 12/04/16 17:00 12/04/16 23:00 12/05/16 02:50 12/05/16 03:55 Assessment/Plan Assessment/Plan Severe sepsis secondary to skin ulcers -wound care consulted -Vanco, and zosyn -mak cultures pending Hypotension -now off levophed -responded IVF -currently IVF at 150 Severe anemia with coagulopathy pt is not on anticoagulation as far as I can tell -transfusing 2 units of PRBC -give 2 units of FFP and 5mg of vitamin K Metabolic acidosis s/p 2 amps of NaHC03 Atelectasis -IS and monitor electrolyte imbalance -replacing all electrolytes Debility Clinical Quality Measures DVT/VTE Risk/Contraindication: Risk Factor Score Per Nursin RFS Level Per Nursing on Admit: 4+=Very High ROCHELLE ZARAGOZA DO Dec 05, 2016 06:42
[2016-12-05] MEDS ORDERED: TROUGH ORDER-PHARMACY XX NR (07:00)
[2016-12-05] MEDS ORDERED: SODIUM PHOSPHATE INJ 30 MM in NS (IVPB) 250 ML IV NR (07:00)
[2016-12-05] MEDS ORDERED: VITAMIN K 1 MG/ML ORAL SOLN 1 ML SYRINGE PO NR (07:00)
[2016-12-05] MEDS ORDERED: PIPERACILLIN/TAZO 4.5 GM VIAL (ZOSYN) IV ONE (08:00)
[2016-12-05] MEDS: PIPERACILLIN SODIUM/TAZOBACTAM 4.5 GM in NS (IVPB) 100 ML IV SCH ×3 (08:00→18:41)
[2016-12-05] MEDS: PANTOPRAZOLE 40 MG/10 ML (PROTONIX) VIAL IV SCH ×2 (08:22→20:05)
[2016-12-05] MEDS: OXYBUTYNIN (DITROPAN) 5 MG TAB PO SCH ×2 (08:24→20:04)
[2016-12-05] MEDS: SERTRALINE 100 MG (ZOLOFT) TAB PO SCH (08:24)
[2016-12-05] MEDS: VANCOMYCIN 1 GM/NS 250 ML IVPB IV SCH ×4 (09:10→20:10)
[2016-12-05] MEDS ORDERED: NS 100 ML (IVPB) BAG IV ONE ×2 (09:15→10:00)
[2016-12-05] MEDS ORDERED: IOHEXOL 350 MG/ML 100 ML (OMNIPAQUE 350) VIAL IV ONE ×2 (09:15→10:00)
--- NOTE | 2016-12-05 09:17 | Diagnostic Imaging Report ---
EXAMINATION: Portable upright radiograph of the chest. COMPARISON: 12/04/2016. INDICATION: Sepsis. FINDINGS: There is a right IJ line with the tip at the SVC level. There is gas density under the right diaphragm seen which could relate to gaseous distention of the colon. Free peritoneal air is not excluded, however. Correlate clinically. The heart size is normal. There is mild bibasilar atelectasis. No effusion or pneumothorax. IMPRESSION: 1. Mild bibasilar atelectasis. 2. Gaseous distention of the colon is seen which may explain the air under the right diaphragm. Pneumoperitoneum is not entirely excluded. Correlate clinically and with additional followup radiographs or CT as needed. The findings were called at the time of dictation to the nurse taking care of the patient (Kenisha) who states that the patient did not have any recent abdominal procedure. She will communicate the findings to Dr. Boothe. Dictated by: Dictated on workstation # [id number]
[2016-12-05] MEDS: DAKIN'S 1/4 STRENGTH (0.125%) 473 ML BTL TOP SCH (10:30)
--- NOTE | 2016-12-05 12:37 | Consultation ---
History of Present Illness History of Present Illness Patient Consulted On(tata/time) 12/05/16 12:31 Date of Admission History of Present Illness Consult requested by Dr. Boothe for possible free air Patient is a 61 year old male that was admitted for severe sepsis. He has chronic wounds which were found to contain a large amount of stool within them. Patient had mental status changes and found to be anemic. Patient had chest x ray this morning that raised question of free air in the abdomen. Patients abdomen was reported as maybe slightly more distended. At this time patient reports he is not having any pain in his abdomen. He has a rectal tube to try and control stool contamination of wounds. Allergies and Home Medications Allergies Coded Allergies: No Known Drug Allergies (Verified , 05/19/14) Home Medications TOP BID (Reported) APPLY TO OPEN AREAS ON PENIS AND SCROTUM Bisacodyl 10 Mg Supp.rect 10 MG RC DAILY PRN PRN CONSTIPATION (Reported) Cyclobenzaprine HCl 10 Mg Tablet 10 MG PO Q8H (Reported) Docusate Sodium 100 Mg Capsule 100 MG PO Q12H PRN PRN CONSTIPATION (Reported) Hydrocodone/Acetaminophen 1 Each Tablet 1 TAB PO Q4H (Reported) Mag Hydrox/Al Hydrox/Simeth 360 Ml Oral.susp 30 ML PO Q4H PRN PRN INDIGESTION ( Reported) Oxybutynin Chloride 10 Mg Tab.er.24 10 MG PO DAILY (Reported) Polyethylene Glycol 17 Gm Pack 17 GM PO DAILY PRN PRN CONSTIPATION (Reported) Senna 8.6 Mg Tab 1-4 TAB PO DAILY PRN PRN CONSTIPATION (Reported) Sertraline HCl 100 Mg Tablet 100 MG PO DAILY (Reported) Sodium Hypochlorite 473 Ml Solution TOP BID (Reported) 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, CLEANSE WOUNDS WITH WOUND CLEANSER, LIGHTLY PACK WOUNDS WITH DAKINS SOAKED GAUZE, COVER WITH MAINTENANCE DRESSING Past Wcdunef-Hrdqkv-Lvrsje Hx Patient Social History Alcohol Use: Denies Use Recreational Drug Use: Yes (Hx smoked weed) Smoking Status: Unknown if Ever Smoked Former Smoker/When Quit: Aug 15, 2010 Recent Foreign Travel: No Contact w/Someone Who Travel: No Recent Infectious Disease Expo: No Recent Hopitalizations: No Physical Abuse Screen: No Sexual Abuse: No Immunizations Up To Date Date of Influenza Vaccine: Aug 14, 2016 Seasonal Allergies Seasonal Allergies: No Surgeries HX Surgeries: Yes (WD SURGERIES) Respiratory Hx Respiratory Disorders: No Cardiovascular Hx Cardiac Disorders: No Neurological Hx Neurological Disorders: Yes (PARAPLEGIC) Reproductive System Hx Reproductive Disorders: No Sexually Transmitted Disease: No Genitourinary Hx Genitourinary Disorders: Yes (HEMATURIA) Gastrointestinal Hx Gastrointestinal Disorders: No Musculoskeletal Hx Musculoskeletal Disorders: Yes (ARTHRITIS) Musculoskeletal Disorders: Arthritis, Scoliosis Endocrine Hx Endocrine Disorders: No HEENT HX ENT Disorders: Yes Loss of Vision: Denies Hearing Impairment: Denies Cancer Hx Cancer: No Psychosocial Hx Psychiatric Problems: Yes Integumentary HX Skin/Integumentary Disorder: Yes (MULTIPLE DECUB) Blood Transfusions Hx Blood Disorders: No Family Medical History Significant Family History: No Pertinent Family Hx Family Medial History: Patient reports no known family medical history. Review of Systems-General Constitutional: no symptoms reported EENTM: no symptoms reported Respiratory: no symptoms reported Cardiovascular: no symptoms reported Gastrointestinal: see HPI Genitourinary: other (suprapubic cath) Skin: other (wounds b/l ischialtuberosities and sacrum) Psychiatric/Neurological: No Symptoms Reported Physical Exam-General Problems Physical Exam Vital Signs Vital Sign - Last 12Hours 12/03/16 12/03/16 15:57 22:00 Temp 96.4 Pulse 92 Resp 20 B/P 71/40 Pulse Ox 99 O2 Delivery Room Air O2 Flow Rate 2.00 Capillary Refill : Less Than 3 Seconds General Appearance: no apparent distress HEENT: PERRL/EOMI Neck: supple Respiratory: lungs clear Cardiovascular: regular rate, rhythm Gastrointestinal: soft (distended, nontender no guarding or rebounding, suprapubic catheter.) Rectal: other (rectal tube in place) Extremities: other (patient with chronic wounds to sacrum and b/l ishcial tuberosities) Neurologic/Psychiatric: alert oriented x 3 Skin: warm/dry Data Review Labs Laboratory Tests 12/04/16 15:00: Basophils # (Auto) 0.0, Basophils (%) (Auto) 0, Eosinophils # (Auto) 0.0, Eosinophils (%) (Auto) 0, Hematocrit 27L, Hemoglobin 8.5#L, Lymphocytes # (Auto ) 0.7L, Lymphocytes (%) (Auto) 5L, Mean Corpuscular Hemoglobin 24L, Mean Corpuscular Hemoglobin Concent 32, Mean Corpuscular Volume 76L, Mean Platelet Volume 10.6H, Monocytes # (Auto) 0.5, Monocytes (%) (Auto) 4, Neutrophils # ( Auto) 12.6H, Neutrophils (%) (Auto) 91H, Platelet Count 193, Red Blood Count 3.49L, Red Cell Distribution Width 24.7H, White Blood Count 13.8H 12/04/16 17:00: Anion Gap 2L, BUN/Creatinine Ratio 20, Blood Urea Nitrogen 13, Calcium Level 5.3 *L, Carbon Dioxide Level 18L, Chloride Level 119H, Creatinine 0.65, Estimat Glomerular Filtration Rate > 60, Glucose Level 117H, Potassium Level 3.8, Sodium Level 139 12/04/16 23:00: Basophils # (Auto) 0.0, Basophils (%) (Auto) 0, Eosinophils # (Auto) 0.0, Eosinophils (%) (Auto) 0, Hematocrit 25L, Hemoglobin 7.6L, Lymphocytes # (Auto) 0.9L, Lymphocytes (%) (Auto) 6L, Mean Corpuscular Hemoglobin 24L, Mean Corpuscular Hemoglobin Concent 31L, Mean Corpuscular Volume 78L, Mean Platelet Volume 10.3, Monocytes # (Auto) 0.6, Monocytes (%) (Auto) 4, Neutrophils # (Auto ) 13.3H, Neutrophils (%) (Auto) 90H, Platelet Count 199, Red Blood Count 3.16L, Red Cell Distribution Width 24.7H, White Blood Count 14.9H, Anion Gap 6, BUN/ Creatinine Ratio 17, Blood Urea Nitrogen 12, Calcium Level 5.6*L, Carbon Dioxide Level 14L, Chloride Level 117H, Creatinine 0.69, Estimat Glomerular Filtration Rate > 60, Glucose Level 172H, Potassium Level 3.6, Sodium Level 137 , Alanine Aminotransferase (ALT/SGPT) 20, Albumin 1.0L, Alkaline Phosphatase 99 , Aspartate Amino Transf (AST/SGOT) 54H, Total Bilirubin 1.9H, Total Protein 5.7L 12/05/16 02:50: Hemoglobin 5.7#*L, Anion Gap 7, BUN/Creatinine Ratio 16, Blood Urea Nitrogen 10 , Calcium Level 6.7L, Carbon Dioxide Level 18L, Chloride Level 118H, Creatinine 0.61, Estimat Glomerular Filtration Rate > 60, Glucose Level 99, Potassium Level 3.1L, Sodium Level 143, Lactic Acid Level 2.3*H, Magnesium Level 2.2, Troponin I < 0.30 12/05/16 03:55: Activated Partial Thromboplast Time 54H, Alanine Aminotransferase (ALT/SGPT) 15 , Albumin 1.9L, Alkaline Phosphatase 73, Anion Gap 8, Aspartate Amino Transf ( AST/SGOT) 40H, BUN/Creatinine Ratio 16, Basophils # (Auto) 0.0, Basophils (%) ( Auto) 0, Blood Urea Nitrogen 10, Calcium Level 6.7L, Carbon Dioxide Level 18L, Chloride Level 119H, Creatinine 0.63, Eosinophils # (Auto) 0.0, Eosinophils (%) (Auto) 0, Estimat Glomerular Filtration Rate > 60, Glucose Level 106H, Hematocrit 19*L, Hemoglobin 5.8*L, INR Comment 3.2H, Lymphocytes # (Auto) 0.8L, Lymphocytes (%) (Auto) 9L, Magnesium Level 2.3, Mean Corpuscular Hemoglobin 24L , Mean Corpuscular Hemoglobin Concent 31L, Mean Corpuscular Volume 79L, Mean Platelet Volume 9.8, Monocytes # (Auto) 0.4, Monocytes (%) (Auto) 4, Neutrophils # (Auto) 7.4, Neutrophils (%) (Auto) 86H, Phosphorus Level 2.1L, Platelet Count 190, Potassium Level 3.2L, Prothrombin Time 33.0H, Red Blood Count 2.38L, Red Cell Distribution Width 24.1H, Sodium Level 145, Total Bilirubin 2.9H, Total Protein 5.3L, White Blood Count 8.6 12/05/16 07:01: Stool Occult Blood Immunoassay POSITIVEH 12/05/16 08:04: Vancomycin Level Trough 18.0 Microbiology 12/03/16 Blood Culture - Preliminary, Resulted No growth 12/03/16 Urine Culture - Final, Complete Providencia Stuartii Proteus Mirabilis 12/03/16 Gram Stain - Final, Resulted 12/03/16 Wound Culture - Preliminary, Resulted Probable E.coli Probable Klebsiella/Enterobact Probable Enterococcus Species Assessment/Plan Assessment/Plan Assessment/Plan severe sepsis, anemia, coagulopathy, questionable free air on x ray, chronic wounds b/l ischial tuberosities/sacrum patient with questionable free air. on exam he's not having any tenderness to the abdomen. will get a ct scan abdomen and pelvis with iv/oral contrast to further investigate. continue medical management and wound care. Clinical Quality Measures DVT/VTE Risk/Contraindication: Risk Factor Score Per Nursin RFS Level Per Nursing on Admit: 4+=Very High AUDREY SALAZAR DO Dec 05, 2016 12:37
--- NOTE | 2016-12-05 13:18 | Progress Note (SOAP) ---
Subjective Subjective/Events-last exam Patient states that he is feeling better this AM. Tolerated dinner and breakfast. Denies any pain this AM. Overnight: Patient had some blood pressure fluctuations that required IVF. LA was again elevated. He was found to have Hgb 5.8 after 1 unit yesterday. This AM he is receiving blood, FFP. Date seen by provider: Dec 05, 2016 Objective Exam Last Set of Vital Signs Vital Signs Date Time Temp Pulse Resp B/P Pulse Ox O2 Delivery O2 Flow Rate FiO2 12/05/16 11:50 97.0 12/05/16 11:50 98 109/73 12/05/16 11:13 16 96 12/05/16 06:45 Room Air 12/04/16 07:01 2.00 Capillary Refill : Less Than 3 Seconds I&O Bad tableGeneral: Alert, Oriented X3, Cooperative, No Acute Distress Neck: Supple, Other (RIJ line in place) Lungs: Clear to Auscultation, Normal Air Movement Heart: Regular Rate, No Murmurs Abdomen: Normal Bowel Sounds, Soft, No Tenderness, No Masses, Other (mild distention(patient states that this is his baseline)) Psych/Mental Status: Mental Status NL, Mood NL Results/Procedures Lab Laboratory Tests 12/04/16 15:00: Basophils # (Auto) 0.0, Basophils (%) (Auto) 0, Eosinophils # (Auto) 0.0, Eosinophils (%) (Auto) 0, Hematocrit 27L, Hemoglobin 8.5#L, Lymphocytes # (Auto ) 0.7L, Lymphocytes (%) (Auto) 5L, Mean Corpuscular Hemoglobin 24L, Mean Corpuscular Hemoglobin Concent 32, Mean Corpuscular Volume 76L, Mean Platelet Volume 10.6H, Monocytes # (Auto) 0.5, Monocytes (%) (Auto) 4, Neutrophils # ( Auto) 12.6H, Neutrophils (%) (Auto) 91H, Platelet Count 193, Red Blood Count 3.49L, Red Cell Distribution Width 24.7H, White Blood Count 13.8H 12/04/16 17:00: Anion Gap 2L, BUN/Creatinine Ratio 20, Blood Urea Nitrogen 13, Calcium Level 5.3 *L, Carbon Dioxide Level 18L, Chloride Level 119H, Creatinine 0.65, Estimat Glomerular Filtration Rate > 60, Glucose Level 117H, Potassium Level 3.8, Sodium Level 139 12/04/16 23:00: Basophils # (Auto) 0.0, Basophils (%) (Auto) 0, Eosinophils # (Auto) 0.0, Eosinophils (%) (Auto) 0, Hematocrit 25L, Hemoglobin 7.6L, Lymphocytes # (Auto) 0.9L, Lymphocytes (%) (Auto) 6L, Mean Corpuscular Hemoglobin 24L, Mean Corpuscular Hemoglobin Concent 31L, Mean Corpuscular Volume 78L, Mean Platelet Volume 10.3, Monocytes # (Auto) 0.6, Monocytes (%) (Auto) 4, Neutrophils # (Auto ) 13.3H, Neutrophils (%) (Auto) 90H, Platelet Count 199, Red Blood Count 3.16L, Red Cell Distribution Width 24.7H, White Blood Count 14.9H, Anion Gap 6, BUN/ Creatinine Ratio 17, Blood Urea Nitrogen 12, Calcium Level 5.6*L, Carbon Dioxide Level 14L, Chloride Level 117H, Creatinine 0.69, Estimat Glomerular Filtration Rate > 60, Glucose Level 172H, Potassium Level 3.6, Sodium Level 137 , Alanine Aminotransferase (ALT/SGPT) 20, Albumin 1.0L, Alkaline Phosphatase 99 , Aspartate Amino Transf (AST/SGOT) 54H, Total Bilirubin 1.9H, Total Protein 5.7L 12/05/16 02:50: Hemoglobin 5.7#*L, Anion Gap 7, BUN/Creatinine Ratio 16, Blood Urea Nitrogen 10 , Calcium Level 6.7L, Carbon Dioxide Level 18L, Chloride Level 118H, Creatinine 0.61, Estimat Glomerular Filtration Rate > 60, Glucose Level 99, Potassium Level 3.1L, Sodium Level 143, Lactic Acid Level 2.3*H, Magnesium Level 2.2, Troponin I < 0.30 12/05/16 03:55: Activated Partial Thromboplast Time 54H, Alanine Aminotransferase (ALT/SGPT) 15 , Albumin 1.9L, Alkaline Phosphatase 73, Anion Gap 8, Aspartate Amino Transf ( AST/SGOT) 40H, BUN/Creatinine Ratio 16, Basophils # (Auto) 0.0, Basophils (%) ( Auto) 0, Blood Urea Nitrogen 10, Calcium Level 6.7L, Carbon Dioxide Level 18L, Chloride Level 119H, Creatinine 0.63, Eosinophils # (Auto) 0.0, Eosinophils (%) (Auto) 0, Estimat Glomerular Filtration Rate > 60, Glucose Level 106H, Hematocrit 19*L, Hemoglobin 5.8*L, INR Comment 3.2H, Lymphocytes # (Auto) 0.8L, Lymphocytes (%) (Auto) 9L, Magnesium Level 2.3, Mean Corpuscular Hemoglobin 24L , Mean Corpuscular Hemoglobin Concent 31L, Mean Corpuscular Volume 79L, Mean Platelet Volume 9.8, Monocytes # (Auto) 0.4, Monocytes (%) (Auto) 4, Neutrophils # (Auto) 7.4, Neutrophils (%) (Auto) 86H, Phosphorus Level 2.1L, Platelet Count 190, Potassium Level 3.2L, Prothrombin Time 33.0H, Red Blood Count 2.38L, Red Cell Distribution Width 24.1H, Sodium Level 145, Total Bilirubin 2.9H, Total Protein 5.3L, White Blood Count 8.6 12/05/16 07:01: Stool Occult Blood Immunoassay POSITIVEH 12/05/16 08:04: Vancomycin Level Trough 18.0 Microbiology 12/03/16 Blood Culture - Preliminary, Resulted No growth 12/03/16 Urine Culture - Final, Complete Providencia Stuartii Proteus Mirabilis 12/03/16 Gram Stain - Final, Resulted 12/03/16 Wound Culture - Preliminary, Resulted Probable E.coli Probable Klebsiella/Enterobact Probable Enterococcus Species Radiology Date of Exam: 12/04/16 CHEST 1 VIEW, AP/PA ONLY INDICATION: Sepsis. COMPARISON: 04/09/2016. FINDINGS: Right IJ central venous catheter has tip at the superior cavoatrial junction. Low lung volumes with bibasilar bronchovascular crowding and subsegmental atelectasis. No focal consolidation. Please note the posterior lower lobes are poorly evaluated by portable radiography. Stable cardiomediastinal silhouette. No pleural effusion or pneumothorax. IMPRESSION: 1. Bibasilar subsegmental atelectasis. No additional focal airspace disease or other acute cardiopulmonary process. Assessment/Plan Assessment/Plan Admission Dx Severe Sepsis Multiple Decubitus Wounds Severe Anemia likely mixed iron Def with chronic disease Severe PEM Abnormal UA Hypocalcemia Hypokalemia Paraplegia Chronic indwelling Suprapubic Catheter Plan 61 yo paraplegic M that presents with large decubitus ulcers in Severe Sepsis Severe Sepsis - Continue IV fluid hydration, blood pressure stable this AM - Lactic acidosis overnight, trending pending - Continue Zosyn/Vancomycin D3 Multiple Decubitus Wounds - Wound care consulted, appreciate recs Possible free Air xray - Surgery consulted, CT pending - Patient stated to me this AM that he is not interested in getting surgery Severe Anemia likely mixed iron Def with chronic disease - s/p 1 unit yesterday and 2 units today - Iron studies pending - + fecal occult Elevated INR - Getting FFP and Vit Ktoday, Repeat INR in AM Elevated Bilirubin - Likely 2/2 hemolysis from sepsis Severe PEM - Add protein shake for improved wound healing Abnormal UA: Likely 2/2 to indwelling catheter, not likely source of infection - Culture pending Hypocalcemia: Replaced multiple times, trending up Hypokalemia: Normalized this AM Paraplegia - PT ordered Chronic indwelling Suprapubic Catheter: routine care FEN: NPO until CT scan completed then advance to Regular diet with protein shake with meals DVT PPX: SCDs, will start lovenox if hgb normalizes Dispo: Continue admit to ICU Social: Patient currently has guardian that is moving out of state soon. It is not a family member. Mr Hartley states that he would like to go home with his daughter but that has not been an option with his guardian. This daughter has not been up to that hospital and I have been unable to get a hold of her. Another daughter was present this afternoon and I went to talk to her and Mr Hartley. She seemed to get very upset when her father stated that he is not willing to get surgery if that is what is recommended. At this time Mr Hartley is not ready to change his code status. Diagnosis/Problems: Clinical Quality Measures DVT/VTE Risk/Contraindication: Risk Factor Score Per Nursin RFS Level Per Nursing on Admit: 4+=Very High PRESTON STILL MD Dec 05, 2016 13:18
--- NOTE | 2016-12-05 13:58 | Diagnostic Imaging Report ---
PROCEDURE: CT abdomen and pelvis with contrast. TECHNIQUE: Multiple contiguous axial images were obtained through the abdomen and pelvis after administration of intravenous contrast. INDICATION: Air under the right hemidiaphragm concerning for pneumoperitoneum versus colonic air. 100 mL of Omnipaque 350 is administered intravenously. FINDINGS: There are bilateral small pleural effusions with bibasilar atelectasis. There is a moderate ascites seen. There is a rectal tube and a suprapubic catheter. The colon demonstrates moderate gaseous distention and moderate amount of fecal material. There is thickening and enhancement in the colonic wall involving mostly the rectosigmoid, may relate to colitis or could be part of the generalized edema and ascites. There is no bowel obstruction. There is no free peritoneal air. The liver, the gallbladder, the spleen, the adrenal glands and the pancreas appear unremarkable. The kidneys have symmetric enhancement and excretion. No hydronephrosis. No enhancing masses demonstrated. The abdominal aorta is normal in caliber. No para-aortic significantly enlarged lymph nodes seen. The osseous structures demonstrate deformities at the hip joints with chronic destruction of the proximal femur on both sides and deep soft tissue ulcers to the level of the ischium bilaterally. There are deformities and sclerotic changes seen in the proximal femoral shaft on both sides with hyperostosis. The bone destruction of the femoral head and neck is new from 2014 on the right side and chronic on the left. Sclerotic changes in the proximal femur and in the ischium bilaterally is probably related to chronic osteomyelitis. IMPRESSION: 1. Moderate ascites and bilateral small pleural effusions. There is generalized subcutaneous tissue edema around the abdomen also. 2. Colonic wall thickening most prominent in the distal colon. It could be also colonic edema and related to ascites or possibly from colitis. 3. No pneumoperitoneum. The air under the diaphragm seen on chest x-ray appears to relate to colonic gaseous distention. 4. Chronic appearing erosions in the pelvis and upper femurs with deep soft tissue ulcer seen. Dictated by: Dictated on workstation # [id number]
[2016-12-05] MEDS: RT-ALBUTEROL/IPRATROPIUM 3 ML (DUONEB) VIAL INH PRN ×2 (15:09→23:47)
--- NOTE | 2016-12-05 15:16 | Physician Query-General Query ---
Physician Query-General Query to Physician: Please indicate the stage of the following decubitus ulcers: 1. sacral decubitus ulcer 2. dinah hip decubitus ulcers PHYSICIAN RESPONSE: Based on the clinical findings in the record, please respond to the query above on this document as an addendum. Possible, probable, or questionable diagnosis can be coded for INPATIENTS ONLY. Physician Response: If you have questions please contact: [employer]: Brando Ext: [phone] Thank you for your time and cooperation. Clinical [employer] This is a permanent part of the medical record BRANDO MARTINES Dec 05, 2016 15:16
[2016-12-05 19:16] LABS: INR 1.7 (0.8-1.4); PROTHROMBIN TIME PATIENT 20.1 SEC (12.2-14.7)
--- NOTE | 2016-12-05 23:18 | Wound Care Progress Note ---
Subjective Subjective Subjective/Events-last exam Unfortunate 61 year old male with complex set of Stage 4 pressure ulcers, complicated by osteomyelitis and malnutrition. No new findings. The patient is hoping to go home. Review of Systems Pulmonary: No Dyspnea Cardiovascular: No: Chest Pain Objective Exam Last Set of Vital Signs Vital Signs Date Time Temp Pulse Resp B/P Pulse Ox O2 Delivery O2 Flow Rate FiO2 12/05/16 20:00 96.3 97 20 128/90 93 Room Air 12/04/16 07:01 2.00 Capillary Refill : Less Than 3 Seconds I&O Bad tableGeneral: Alert, No Acute Distress Lungs: Normal Air Movement Neuro: Other (confused) Results Lab Laboratory Tests 12/05/16 02:50: Anion Gap 7, BUN/Creatinine Ratio 16, Blood Urea Nitrogen 10, Calcium Level 6.7L , Carbon Dioxide Level 18L, Chloride Level 118H, Creatinine 0.61, Estimat Glomerular Filtration Rate > 60, Glucose Level 99, Hemoglobin 5.7#*L, Lactic Acid Level 2.3*H, Magnesium Level 2.2, Potassium Level 3.1L, Sodium Level 143, Troponin I < 0.30 12/05/16 03:55: Anion Gap 8, BUN/Creatinine Ratio 16, Blood Urea Nitrogen 10, Calcium Level 6.7L , Carbon Dioxide Level 18L, Chloride Level 119H, Creatinine 0.63, Estimat Glomerular Filtration Rate > 60, Glucose Level 106H, Hemoglobin 5.8*L, Magnesium Level 2.3, Potassium Level 3.2L, Sodium Level 145, Activated Partial Thromboplast Time 54H, Alanine Aminotransferase (ALT/SGPT) 15, Albumin 1.9L, Alkaline Phosphatase 73, Aspartate Amino Transf (AST/SGOT) 40H, Basophils # ( Auto) 0.0, Basophils (%) (Auto) 0, Eosinophils # (Auto) 0.0, Eosinophils (%) ( Auto) 0, Hematocrit 19*L, INR Comment 3.2H, Lymphocytes # (Auto) 0.8L, Lymphocytes (%) (Auto) 9L, Mean Corpuscular Hemoglobin 24L, Mean Corpuscular Hemoglobin Concent 31L, Mean Corpuscular Volume 79L, Mean Platelet Volume 9.8, Monocytes # (Auto) 0.4, Monocytes (%) (Auto) 4, Neutrophils # (Auto) 7.4, Neutrophils (%) (Auto) 86H, Phosphorus Level 2.1L, Platelet Count 190, Prothrombin Time 33.0H, Red Blood Count 2.38L, Red Cell Distribution Width 24.1H , Total Bilirubin 2.9H, Total Protein 5.3L, White Blood Count 8.6 12/05/16 07:01: Stool Occult Blood Immunoassay POSITIVEH 12/05/16 08:04: Vancomycin Level Trough 18.0 12/05/16 18:40: Hemoglobin 8.2#L, INR Comment 1.7H, Prothrombin Time 20.1H Microbiology 12/03/16 Blood Culture - Preliminary, Resulted No growth 12/03/16 Urine Culture - Final, Complete Providencia Stuartii Proteus Mirabilis 12/03/16 Gram Stain - Final, Resulted 12/03/16 Wound Culture - Preliminary, Resulted Escherichia Coli Enterobacter Cloacae Enterococcus Faecium Assessment/Plan Assessment/Plan Assessment/Plan 1. complex, confluent stage 4 pressure ulcers of bilateral hips, ischia, sacrum with underlying osteomyelitis. Plan: the patient has maintained a fairly stable course with these horrific wounds with the present dressings. I am disinclined to change anything. ERMIAS AMARO MD Dec 05, 2016 23:18
[2016-12-06] VITALS (20 sets, daily range): BP systolic 118–144; BP diastolic 84–105
[2016-12-06 00:20] LABS: CALCIUM IONIZED 1.07 mmol/L (1.16-1.32); CORRECTED IONIZED CALCIUM 1.07 mmol/L (1.16-1.32)
[2016-12-06] MEDS: HYDROCORTISONE 100 MG/2 ML (Solu-CORTEF) VIAL IV SCH ×2 (00:24→05:52)
[2016-12-06] MEDS: PIPERACILLIN SODIUM/TAZOBACTAM 4.5 GM in NS (IVPB) 100 ML IV SCH ×3 (00:24→17:25)
[2016-12-06] MEDS: NOREPINEPHRINE FOR DRIPS 4 MG in D5W 250 ML (IVPB) 250 ML IV SCH ×2 (01:02→05:38)
[2016-12-06] MEDS: PHENYLEPHRINE FOR DRIPS 10 MG in D5W 250 ML (IVPB) 250 ML IV SCH ×2 (01:36→05:38)
[2016-12-06 04:44] LABS: BASOPHILS % (AUTO) 0 % (0-10); EOSINOPHILS % (AUTO) 0 % (0-10); LYMPHOCYTES # (AUTO) 0.5 X 10^3 (1.0-4.0); LYMPHOCYTES % (AUTO) 8 % (12-44); MEAN CORPUSCULAR HEMOGLOBIN 28 PG (25-34); MEAN CORPUSCULAR HGB CONC 34 G/DL (32-36); MEAN CORPUSCULAR VOLUME 84 FL (80-99); MEAN PLATELET VOLUME 9.7 FL (7.4-10.4); MONOCYTES # (AUTO) 0.3 X 10^3 (0.0-1.0); MONOCYTES % (AUTO) 4 % (0-12); NEUTROPHILS # (AUTO) 5.6 X 10^3 (1.8-7.8); NEUTROPHILS % (AUTO) 88 % (42-75); PLATELET COUNT 123 10^3/uL (130-400); RED BLOOD COUNT 2.82 10^6/uL (4.35-5.85); RED CELL DISTRIBUTION WIDTH 23.3 % (10.0-14.5); WHITE BLOOD COUNT 6.3 10^3/uL (4.3-11.0)
[2016-12-06 05:05] LABS: ANISOCYTOSIS MARKED; BAND NEUTROPHILS 5 %; BASOPHILS % (MANUAL) 0 %; EOSINOPHILS % (MANUAL) 0 %; HYPOCHROMASIA MARKED; INR 1.6 (0.8-1.4); LYMPHOCYTES % (MANUAL) 10 %; MICROCYTOSIS MODERATE; NEUTROPHILS % (MANUAL) 82 %; POIKILOCYTOSIS SLIGHT; POLYCHROMASIA SLIGHT; PROTHROMBIN TIME PATIENT 18.7 SEC (12.2-14.7)
[2016-12-06 05:06] LABS: TARGET CELLS MODERATE
[2016-12-06 05:25] LABS: ALANINE AMINOTRANSFERASE 15 U/L (0-55); ALBUMIN 1.9 G/DL (3.2-4.5); ANION GAP 6 MMOL/L (5-14); ASPARTATE AMINO TRANSFERASE 30 U/L (5-34); BILIRUBIN,TOTAL 2.9 MG/DL (0.1-1.0); BLOOD UREA NITROGEN 8 MG/DL (7-18); BUN/CREATININE RATIO 15; CALCIUM 6.6 MG/DL (8.5-10.1); CARBON DIOXIDE 21 MMOL/L (21-32); CHLORIDE 117 MMOL/L (98-107); CREATININE SERUM 0.52 MG/DL (0.60-1.30); GFR ESTIMATED > 60; GLUCOSE 97 MG/DL (70-105); MAGNESIUM 2.1 MG/DL (1.8-2.4); PHOSPHORUS 2.2 MG/DL (2.3-4.7); POTASSIUM 2.8 MMOL/L (3.6-5.0); SODIUM 144 MMOL/L (135-145); TOTAL PROTEIN 5.8 G/DL (6.4-8.2)
[2016-12-06] MEDS: MAGNESIUM 1 GM/100 ML IVPB 100 ML IV SCH (05:34)
[2016-12-06] MEDS: POTASSIUM CL 10MEQ/50ML IVPB 50 ML IV SCH ×6 (05:38→10:45)
[2016-12-06] MEDS: VASOPRESSIN INJECTION 20 UNIT in NS (IVPB) 100 ML IV SCH ×3 (05:38→22:42)
[2016-12-06] MEDS: KCL 20 MEQ TAB (K-DUR) PO SCH (05:38)
[2016-12-06] MEDS ORDERED: POTASSIUM CL 10MEQ/50ML IVPB 50 ML IV ONE (05:45)
[2016-12-06] MEDS: CYCLOBENZAPRINE 10 MG (FLEXERIL) TAB PO SCH ×3 (05:53→22:00)
[2016-12-06] MEDS: NS IV 1000 ML 1,000 ML IV SCH ×3 (05:53→18:40)
[2016-12-06] MEDS ORDERED: FUROSEMIDE 40 MG/4 ML INJ (LASIX) ONE ×2 (06:12→22:30)
[2016-12-06] MEDS ORDERED: FUROSEMIDE 40 MG/4 ML INJ (LASIX) IVP ONE ×3 (06:15→22:45)
--- NOTE | 2016-12-06 06:16 | Pulmonary Progress Note ---
Subjective Subjective/Events-last exam PT has been feeling more SOB and nausea. Exam Exam Vital Signs Date Time Temp Pulse Resp B/P Pulse Ox O2 Delivery O2 Flow Rate FiO2 12/06/16 04:00 98 3.00 12/06/16 03:57 96.4 98 20 133/91 93 Nasal Cannula 3.00 12/06/16 03:00 87 10 133/91 90 Nasal Cannula 3.00 12/06/16 02:00 86 21 119/89 93 Nasal Cannula 3.00 12/06/16 01:00 86 12/06/16 01:00 98 28 120/92 95 Nasal Cannula 3.00 12/06/16 00:00 94 3.00 12/06/16 00:00 96.0 93 22 118/84 93 Nasal Cannula 3.00 12/05/16 23:47 94 2.00 12/05/16 23:00 102 27 137/78 90 Nasal Cannula 2.00 12/05/16 22:00 100 22 135/86 93 Room Air 12/05/16 21:00 100 17 128/91 93 Room Air 12/05/16 20:00 96.3 97 20 128/90 93 Room Air 12/05/16 20:00 92 12/05/16 19:00 98 12/05/16 19:00 98 16 129/87 Room Air 12/05/16 17:45 93 18 91 Room Air 12/05/16 16:45 97.7 12/05/16 16:45 122/87 99 Room Air 12/05/16 15:09 95 12/05/16 15:00 144/97 98 Room Air 12/05/16 14:45 97.7 98 122/87 12/05/16 14:17 96.9 85 130/90 12/05/16 14:08 96.9 82 122/87 12/05/16 14:05 96.7 89 122/87 12/05/16 14:00 85 17 118/81 92 Room Air 12/05/16 13:31 96.3 79 130/95 12/05/16 13:00 90 12/05/16 13:00 122/89 12/05/16 12:00 101 25 114/82 95 Room Air 12/05/16 11:50 97.0 12/05/16 11:50 97.0 98 109/73 12/05/16 11:35 97.4 80 103/94 12/05/16 11:13 97.4 88 16 110/77 96 12/05/16 11:00 76 18 109/73 12/05/16 10:00 94 18 112/84 95 Room Air 12/05/16 09:39 97.4 85 109/78 12/05/16 09:19 97.8 99 110/78 12/05/16 09:16 97 12/05/16 09:00 98 18 110/77 97 Room Air 12/05/16 08:30 97.0 12/05/16 08:30 97.0 101 96/70 12/05/16 08:00 28 97/67 92 Room Air 12/05/16 07:00 67 17 113/80 97 Room Air 12/05/16 07:00 67 12/05/16 06:45 80 20 110/85 95 Room Air 12/05/16 06:30 73 18 107/74 96 Room Air 12/05/16 06:15 79 24 100/68 100 Room Air I & O 12/06/16 07:00 Intake Total 3500 ml Output Total 1175 ml Balance 2325 ml General Appearance: No Apparent Distress WD/WN Neck: Full Range of Motion Normal Inspection Respiratory: No Accessory Muscle Use No Respiratory Distress Decreased Breath Sounds Cardiovascular: Regular Rate, Rhythm No Edema Capillary Refill: Less Than 3 Seconds Peripheral Pulses: 0 Carotid (R), 0 Carotid (L), 0 Femoral (R), 0 Femoral (L), 0 Dorsalis Pedis (R), 0 Left Dors-Pedis (L), 0 Radial Pulses (R), 0 Radial Pulses (L) Gastrointestinal: soft (distended, nontender no guarding or rebounding, suprapubic catheter.) Neurologic/Psychiatric: Alert Oriented x3 Skin: Normal Color Warm/Dry Lymphatic: No Adenopathy Results Lab Laboratory Tests 12/04/16 09:15 12/04/16 15:00 12/04/16 17:00 12/04/16 23:00 12/05/16 02:50 12/05/16 03:55 12/05/16 18:40 12/06/16 01:30 12/06/16 04:15 Assessment/Plan Assessment/Plan Severe sepsis secondary to skin ulcers -wound care consulted -Vanco, and zosyn -mak cultures pending Pulmonary edema -KVO IVF and give 40 mg of lasix nausea -zofran Severe anemia with coagulopathy s/p transfusion vit K and FFP Atelectasis -IS and monitor electrolyte imbalance -replacing all electrolytes Debility Hypotension-- resolved -now off levophed -responded IVF -currently IVF at 150 Metabolic acidosis-- resolved s/p 2 amps of NaHC03 Clinical Quality Measures DVT/VTE Risk/Contraindication: Risk Factor Score Per Nursin RFS Level Per Nursing on Admit: 4+=Very High ROCHELLE ZARAGOZA DO Dec 06, 2016 06:15
[2016-12-06] MEDS ORDERED: POTASSIUM PHOSPHATE INJ 30 MM in NS (IVPB) 250 ML IV ONE (06:17)
[2016-12-06] MEDS ORDERED: ONDANSETRON 4 MG/2 ML (SDV) Z0FRAN IVP PRN (06:30)
[2016-12-06 07:32] LABS: UIBC <55 ug/dL (55-450)
[2016-12-06 07:37] LABS: CALCIUM PH 7.4
--- NOTE | 2016-12-06 07:54 | Diagnostic Imaging Report ---
INDICATION: Sepsis Right IJ central line tip projects over the SVC. Heart size is normal. There are infiltrates in the left lower lung, in the right perihilar region and also at the right lung base. IMPRESSION: Bilateral pulmonary infiltrates new since the previous day. This could represent pneumonia versus atelectasis. Dictated by: Dictated on workstation # [id number]
[2016-12-06] MEDS: SERTRALINE 100 MG (ZOLOFT) TAB PO SCH (09:30)
[2016-12-06] MEDS: PANTOPRAZOLE 40 MG/10 ML (PROTONIX) VIAL IV SCH ×2 (09:30→20:49)
[2016-12-06] MEDS: VANCOMYCIN 1 GM/NS 250 ML IVPB IV SCH ×4 (09:30→20:49)
[2016-12-06] MEDS: OXYBUTYNIN (DITROPAN) 5 MG TAB PO SCH ×2 (09:30→20:49)
--- NOTE | 2016-12-06 09:51 | Progress Note ---
Subjective Subjective/Events-last exam Patient resting in bed. Easily aroused. Some SOB. Patient is alert when aroused. Objective Exam Vital Signs Date Time Temp Pulse Resp B/P Pulse Ox O2 Delivery O2 Flow Rate FiO2 12/06/16 08:00 99 3.00 12/06/16 08:00 96.0 95 16 139/91 99 Nasal Cannula 3.00 12/06/16 07:00 89 12/06/16 06:24 97 2.00 12/06/16 04:00 98 3.00 12/06/16 03:57 96.4 98 20 133/91 93 Nasal Cannula 3.00 12/06/16 03:00 87 10 133/91 90 Nasal Cannula 3.00 12/06/16 02:00 86 21 119/89 93 Nasal Cannula 3.00 12/06/16 01:00 86 12/06/16 01:00 98 28 120/92 95 Nasal Cannula 3.00 12/06/16 00:00 94 3.00 12/06/16 00:00 96.0 93 22 118/84 93 Nasal Cannula 3.00 12/05/16 23:47 94 2.00 12/05/16 23:00 102 27 137/78 90 Nasal Cannula 2.00 12/05/16 22:00 100 22 135/86 93 Room Air 12/05/16 21:00 100 17 128/91 93 Room Air 12/05/16 20:00 96.3 97 20 128/90 93 Room Air 12/05/16 20:00 92 12/05/16 19:00 98 12/05/16 19:00 98 16 129/87 Room Air 12/05/16 17:45 93 18 91 Room Air 12/05/16 16:45 97.7 12/05/16 16:45 122/87 99 Room Air 12/05/16 15:09 95 12/05/16 15:00 144/97 98 Room Air 12/05/16 14:45 97.7 98 122/87 12/05/16 14:17 96.9 85 130/90 12/05/16 14:08 96.9 82 122/87 12/05/16 14:05 96.7 89 122/87 12/05/16 14:00 85 17 118/81 92 Room Air 12/05/16 13:31 96.3 79 130/95 12/05/16 13:00 90 12/05/16 13:00 122/89 12/05/16 12:00 101 25 114/82 95 Room Air 12/05/16 11:50 97.0 12/05/16 11:50 97.0 98 109/73 12/05/16 11:35 97.4 80 103/94 12/05/16 11:13 97.4 88 16 110/77 96 12/05/16 11:00 76 18 109/73 12/05/16 10:00 94 18 112/84 95 Room Air I & O 12/06/16 07:00 Intake Total 3500 ml Output Total 1175 ml Balance 2325 ml Capillary Refill : Less Than 3 Seconds General Appearance: No Apparent Distress WD/WN HEENT: Pale Conjunctivae (L) Neck: Full Range of Motion Normal Inspection Respiratory: No Accessory Muscle Use No Respiratory Distress Decreased Breath Sounds Cardiovascular: Regular Rate, Rhythm Peripheral Pulses: 0 Carotid (R), 0 Carotid (L), 0 Femoral (R), 0 Femoral (L), 0 Dorsalis Pedis (R), 0 Left Dors-Pedis (L), 0 Radial Pulses (R), 0 Radial Pulses (L) Gastrointestinal: soft (distended, nontender no guarding or rebounding, suprapubic catheter.) distended (mild) Neurologic/Psychiatric: Alert Oriented x3 Skin: Warm/Dry Pallor Lymphatic: No Adenopathy Results Lab Laboratory Tests Test 12/04/16 12:29 12/04/16 15:00 12/04/16 17:00 12/04/16 23:00 Range/Units Glucometer 72 70-110 MG/DL Basophils # (Auto) 0.0 0.0 0.0-0.1 10^3/uL Basophils (%) (Auto) 0 0 0-10 % Eosinophils # (Auto) 0.0 0.0 0.0-0.3 10^3/uL Eosinophils (%) (Auto) 0 0 0-10 % Hematocrit 27 L 25 L 40-54 % Hemoglobin 8.5 #L 7.6 L 13.3-17.7 G/DL Lymphocytes # (Auto) 0.7 L 0.9 L 1.0-4.0 X 10^3 Lymphocytes (%) (Auto) 5 L 6 L 12-44 % Mean Corpuscular Hemoglobin 24 L 24 L 25-34 PG Mean Corpuscular Hemoglobin Concent 32 31 L 32-36 G/DL Mean Corpuscular Volume 76 L 78 L 80-99 FL Mean Platelet Volume 10.6 H 10.3 7.4-10.4 FL Monocytes # (Auto) 0.5 0.6 0.0-1.0 X 10^3 Monocytes (%) (Auto) 4 4 0-12 % Neutrophils # (Auto) 12.6 H 13.3 H 1.8-7.8 X 10^3 Neutrophils (%) (Auto) 91 H 90 H 42-75 % Platelet Count 193 199 130-400 10^3/uL Red Blood Count 3.49 L 3.16 L 4.35-5.85 10^6/uL Red Cell Distribution Width 24.7 H 24.7 H 10.0-14.5 % White Blood Count 13.8 H 14.9 H 4.3-11.0 10^3/uL Anion Gap 2 L 6 5-14 MMOL/L BUN/Creatinine Ratio 20 17 Blood Urea Nitrogen 13 12 7-18 MG/DL Calcium Level 5.3 *L 5.6 *L 8.5-10.1 MG/DL Carbon Dioxide Level 18 L 14 L 21-32 MMOL/L Chloride Level 119 H 117 H 98-107 MMOL/L Creatinine 0.65 0.69 0.60-1.30 MG/DL Estimat Glomerular Filtration Rate > 60 > 60 Glucose Level 117 H 172 H 70-105 MG/DL Potassium Level 3.8 3.6 3.6-5.0 MMOL/L Sodium Level 139 137 135-145 MMOL/L Alanine Aminotransferase (ALT/SGPT) 20 0-55 U/L Albumin 1.0 L 3.2-4.5 G/DL Alkaline Phosphatase 99 40-136 U/L Aspartate Amino Transf (AST/SGOT) 54 H 5-34 U/L Total Bilirubin 1.9 H 0.1-1.0 MG/DL Total Protein 5.7 L 6.4-8.2 G/DL Test 12/05/16 02:50 12/05/16 03:55 12/05/16 07:01 12/05/16 08:04 Range/Units Anion Gap 7 8 5-14 MMOL/L BUN/Creatinine Ratio 16 16 Blood Urea Nitrogen 10 10 7-18 MG/DL Calcium Level 6.7 L 6.7 L 8.5-10.1 MG/DL Carbon Dioxide Level 18 L 18 L 21-32 MMOL/L Chloride Level 118 H 119 H 98-107 MMOL/L Creatinine 0.61 0.63 0.60-1.30 MG/DL Estimat Glomerular Filtration Rate > 60 > 60 Glucose Level 99 106 H 70-105 MG/DL Hemoglobin 5.7 #*L 5.8 *L 13.3-17.7 G/DL Ionized Calcium (Corrected) 1.07 L 1.16-1.32 mmol/L Ionized Calcium (Measured) 1.07 L 1.16-1.32 mmol/L Ionized Calcium pH 7.40 Lactic Acid Level 2.3 *H 0.5-2.0 MMOL/L Magnesium Level 2.2 2.3 1.8-2.4 MG/DL Potassium Level 3.1 L 3.2 L 3.6-5.0 MMOL/L Sodium Level 143 145 135-145 MMOL/L Troponin I < 0.30 <0.30 NG/ML Activated Partial Thromboplast Time 54 H 24-35 SEC Alanine Aminotransferase (ALT/SGPT) 15 0-55 U/L Albumin 1.9 L 3.2-4.5 G/DL Alkaline Phosphatase 73 40-136 U/L Aspartate Amino Transf (AST/SGOT) 40 H 5-34 U/L Basophils # (Auto) 0.0 0.0-0.1 10^3/uL Basophils (%) (Auto) 0 0-10 % Eosinophils # (Auto) 0.0 0.0-0.3 10^3/uL Eosinophils (%) (Auto) 0 0-10 % Ferritin 151.0 25.0-300.0 ng/mL Hematocrit 19 *L 40-54 % INR Comment 3.2 H 0.8-1.4 Iron Level 91 40-180 ug/dL Lymphocytes # (Auto) 0.8 L 1.0-4.0 X 10^3 Lymphocytes (%) (Auto) 9 L 12-44 % Mean Corpuscular Hemoglobin 24 L 25-34 PG Mean Corpuscular Hemoglobin Concent 31 L 32-36 G/DL Mean Corpuscular Volume 79 L 80-99 FL Mean Platelet Volume 9.8 7.4-10.4 FL Monocytes # (Auto) 0.4 0.0-1.0 X 10^3 Monocytes (%) (Auto) 4 0-12 % Neutrophils # (Auto) 7.4 1.8-7.8 X 10^3 Neutrophils (%) (Auto) 86 H 42-75 % Phosphorus Level 2.1 L 2.3-4.7 MG/DL Platelet Count 190 130-400 10^3/uL Prothrombin Time 33.0 H 12.2-14.7 SEC Red Blood Count 2.38 L 4.35-5.85 10^6/uL Red Cell Distribution Width 24.1 H 10.0-14.5 % Total Bilirubin 2.9 H 0.1-1.0 MG/DL Total Iron Binding Capacity Footnote H 280-380 Total Protein 5.3 L 6.4-8.2 G/DL Transferrin % Saturation Footnote H 15-50 Unsaturated Iron Binding Capacity <55 55-450 ug/dL White Blood Count 8.6 4.3-11.0 10^3/uL Stool Occult Blood Immunoassay POSITIVE H NEGATIVE Vancomycin Level Trough 18.0 10.0-20.0 UG/ML Test 12/05/16 18:40 12/06/16 01:30 12/06/16 04:15 Range/Units Hemoglobin 8.2 #L 8.2 L 8.0 L 13.3-17.7 G/DL INR Comment 1.7 H 1.6 H 0.8-1.4 Prothrombin Time 20.1 H 18.7 H 12.2-14.7 SEC Activated Partial Thromboplast Time 37 H 24-35 SEC Alanine Aminotransferase (ALT/SGPT) 15 0-55 U/L Albumin 1.9 L 3.2-4.5 G/DL Alkaline Phosphatase 75 40-136 U/L Anion Gap 6 5-14 MMOL/L Anisocytosis MARKED Aspartate Amino Transf (AST/SGOT) 30 5-34 U/L BUN/Creatinine Ratio 15 Band Neutrophils 5 % Basophils # (Auto) 0.0 0.0-0.1 10^3/uL Basophils % (Manual) 0 % Basophils (%) (Auto) 0 0-10 % Blood Urea Nitrogen 8 7-18 MG/DL Calcium Level 6.6 L 8.5-10.1 MG/DL Carbon Dioxide Level 21 21-32 MMOL/L Chloride Level 117 H 98-107 MMOL/L Creatinine 0.52 L 0.60-1.30 MG/DL Eosinophils # (Auto) 0.0 0.0-0.3 10^3/uL Eosinophils % (Manual) 0 % Eosinophils (%) (Auto) 0 0-10 % Estimat Glomerular Filtration Rate > 60 Glucose Level 97 70-105 MG/DL Hematocrit 24 L 40-54 % Hypochromasia MARKED Lactic Acid Level 1.1 0.5-2.0 MMOL/L Lymphocytes # (Auto) 0.5 L 1.0-4.0 X 10^3 Lymphocytes % (Manual) 10 % Lymphocytes (%) (Auto) 8 L 12-44 % Macrocytosis MODERATE Magnesium Level 2.1 1.8-2.4 MG/DL Mean Corpuscular Hemoglobin 28 25-34 PG Mean Corpuscular Hemoglobin Concent 34 32-36 G/DL Mean Corpuscular Volume 84 80-99 FL Mean Platelet Volume 9.7 7.4-10.4 FL Microcytosis MODERATE Monocytes # (Auto) 0.3 0.0-1.0 X 10^3 Monocytes % (Manual) 3 % Monocytes (%) (Auto) 4 0-12 % Neutrophils # (Auto) 5.6 1.8-7.8 X 10^3 Neutrophils % (Manual) 82 % Neutrophils (%) (Auto) 88 H 42-75 % Phosphorus Level 2.2 L 2.3-4.7 MG/DL Platelet Count 123 L 130-400 10^3/uL Poikilocytosis SLIGHT Polychromasia SLIGHT Potassium Level 2.8 L 3.6-5.0 MMOL/L Red Blood Count 2.82 L 4.35-5.85 10^6/uL Red Cell Distribution Width 23.3 H 10.0-14.5 % Sodium Level 144 135-145 MMOL/L Target Cells MODERATE Total Bilirubin 2.9 H 0.1-1.0 MG/DL Total Protein 5.8 L 6.4-8.2 G/DL White Blood Count 6.3 4.3-11.0 10^3/uL Laboratory Tests 12/05/16 18:40: Hemoglobin 8.2#L, INR Comment 1.7H, Prothrombin Time 20.1H 12/06/16 01:30: Hemoglobin 8.2L 12/06/16 04:15: Hemoglobin 8.0L, INR Comment 1.6H, Prothrombin Time 18.7H, Activated Partial Thromboplast Time 37H, Alanine Aminotransferase (ALT/SGPT) 15, Albumin 1.9L, Alkaline Phosphatase 75, Anion Gap 6, Anisocytosis MARKED, Aspartate Amino Transf (AST/SGOT) 30, BUN/Creatinine Ratio 15, Band Neutrophils 5, Basophils # ( Auto) 0.0, Basophils % (Manual) 0, Basophils (%) (Auto) 0, Blood Urea Nitrogen 8 , Calcium Level 6.6L, Carbon Dioxide Level 21, Chloride Level 117H, Creatinine 0.52L, Eosinophils # (Auto) 0.0, Eosinophils % (Manual) 0, Eosinophils (%) (Auto ) 0, Estimat Glomerular Filtration Rate > 60, Glucose Level 97, Hematocrit 24L, Hypochromasia MARKED, Lactic Acid Level 1.1, Lymphocytes # (Auto) 0.5L, Lymphocytes % (Manual) 10, Lymphocytes (%) (Auto) 8L, Macrocytosis MODERATE, Magnesium Level 2.1, Mean Corpuscular Hemoglobin 28, Mean Corpuscular Hemoglobin Concent 34, Mean Corpuscular Volume 84, Mean Platelet Volume 9.7, Microcytosis MODERATE, Monocytes # (Auto) 0.3, Monocytes % (Manual) 3, Monocytes (%) (Auto) 4, Neutrophils # (Auto) 5.6, Neutrophils % (Manual) 82, Neutrophils (%) (Auto) 88H, Phosphorus Level 2.2L, Platelet Count 123L, Poikilocytosis SLIGHT, Polychromasia SLIGHT, Potassium Level 2.8L, Red Blood Count 2.82L, Red Cell Distribution Width 23.3H, Sodium Level 144, Target Cells MODERATE, Total Bilirubin 2.9H, Total Protein 5.8L, White Blood Count 6.3 Microbiology 12/03/16 Blood Culture - Preliminary, Resulted No growth 12/03/16 Urine Culture - Final, Complete Providencia Stuartii Proteus Mirabilis 12/03/16 Gram Stain - Final, Resulted 12/03/16 Wound Culture - Preliminary, Resulted Escherichia Coli Enterobacter Cloacae Enterococcus Faecium Pseudomonas Aeruginosa Staphylococcus Aureus Radiology NAME: AMBAR MOLINA [facility] REC#: [id number] PT STATUS: ADM IN : 1955 PHYSICIAN: PRESTON STILL MD ADMIT DATE: 12/03/16/ICU Signed Date of Exam: 12/06/16 CHEST 1 VIEW, AP/PA ONLY INDICATION: Sepsis Right IJ central line tip projects over the SVC. Heart size is normal. There are infiltrates in the left lower lung, in the right perihilar region and also at the right lung base. IMPRESSION: Bilateral pulmonary infiltrates new since the previous day. This could represent pneumonia versus atelectasis. Dictated by: Dictated on workstation # [id number] NAME: AMBAR MOLINA [facility] REC#: [id number] PT STATUS: ADM IN : 1955 PHYSICIAN: AUDREY SALAZAR DO ADMIT DATE: 12/03/16/ICU Signed Date of Exam: 12/05/16 CT ABDOMEN/PELVIS W PROCEDURE: CT abdomen and pelvis with contrast. TECHNIQUE: Multiple contiguous axial images were obtained through the abdomen and pelvis after administration of intravenous contrast. INDICATION: Air under the right hemidiaphragm concerning for pneumoperitoneum versus colonic air. 100 mL of Omnipaque 350 is administered intravenously. FINDINGS: There are bilateral small pleural effusions with bibasilar atelectasis. There is a moderate ascites seen. There is a rectal tube and a suprapubic catheter. The colon demonstrates moderate gaseous distention and moderate amount of fecal material. There is thickening and enhancement in the colonic wall involving mostly the rectosigmoid, may relate to colitis or could be part of the generalized edema and ascites. There is no bowel obstruction. There is no free peritoneal air. The liver, the gallbladder, the spleen, the adrenal glands and the pancreas appear unremarkable. The kidneys have symmetric enhancement and excretion. No hydronephrosis. No enhancing masses demonstrated. The abdominal aorta is normal in caliber. No para-aortic significantly enlarged lymph nodes seen. The osseous structures demonstrate deformities at the hip joints with chronic destruction of the proximal femur on both sides and deep soft tissue ulcers to the level of the ischium bilaterally. There are deformities and sclerotic changes seen in the proximal femoral shaft on both sides with hyperostosis. The bone destruction of the femoral head and neck is new from 2014 on the right side and chronic on the left. Sclerotic changes in the proximal femur and in the ischium bilaterally is probably related to chronic osteomyelitis. IMPRESSION: 1. Moderate ascites and bilateral small pleural effusions. There is generalized subcutaneous tissue edema around the abdomen also. 2. Colonic wall thickening most prominent in the distal colon. It could be also colonic edema and related to ascites or possibly from colitis. 3. No pneumoperitoneum. The air under the diaphragm seen on chest x-ray appears to relate to colonic gaseous distention. 4. Chronic appearing erosions in the pelvis and upper femurs with deep soft tissue ulcer seen. Assessment/Plan Assessment/Plan Assessment/Plan severe sepsis, anemia, coagulopathy, chronic wounds b/l ischial tuberosities/sacrum Hypokalemia- Potassium is being replaced. Bilateral Basal Atelectasis- Mat Protocol was ordered with IS. Lasix was ordered.- Dr. Boothe continue medical management and wound care. Donnell- Patient laying in bed. Had some shortness of breath overnight. Patient doing better now. Discussed overall care with patient and not wanting any type of surgical intervention. CT scan did not demonstrate any free air, some thickening of colon which could be related to ascites. Patient laying in bed heart reg slightly tachycardic lungs nonlabored abdomen slight distention no guarding or rebounding no pain on palpation. wounds b/l thigh and sacral rectal tube and suprapubic catheter assessment as above. Patient not wanting any surgical interventions, if needed. Continue medical management Will sign off, call if needed. Clinical Quality Measures DVT/VTE Risk/Contraindication: Risk Factor Score Per Nursin RFS Level Per Nursing on Admit: 4+=Very High MARTÍN SAMS APRN Dec 06, 2016 09:51 AUDREY SLAAZAR DO Dec 06, 2016 14:05
--- NOTE | 2016-12-06 10:13 | Progress Note (SOAP) ---
Subjective Subjective/Events-last exam Patient states that overnight he got short of breath. He has a decreased appetite and felt nauseous prior to breakfast. Rectal tube draining stool. Suprapubic cath draining dark urine. States that his breathing is improved since getting lasix. Date seen by provider: Dec 06, 2016 Objective Exam Last Set of Vital Signs Vital Signs Date Time Temp Pulse Resp B/P Pulse Ox O2 Delivery O2 Flow Rate FiO2 12/06/16 10:00 96 13 119/90 100 Nasal Cannula 3.00 12/06/16 08:00 96.0 Capillary Refill : Less Than 3 Seconds I&O Intake and Output 12/06/16 00:00 Intake Total 3850 ml Output Total 1200 ml Balance 2650 ml Intake Oral 590 ml IV Total 3260 ml Output Urine Total 1200 ml General: Alert, Oriented X3, Cooperative Lungs: Clear to Auscultation, Normal Air Movement Heart: Regular Rate, No Murmurs Abdomen: Normal Bowel Sounds, Soft, No Tenderness, Other (+ mild distention, improved from yesterday) Extremities: No Edema Skin: Other (Wounds dressed today) Neuro: Normal Speech Psych/Mental Status: Mental Status NL, Mood NL Results/Procedures Lab Laboratory Tests 12/05/16 18:40: Hemoglobin 8.2#L, INR Comment 1.7H, Prothrombin Time 20.1H 12/06/16 01:30: Hemoglobin 8.2L 12/06/16 04:15: Hemoglobin 8.0L, INR Comment 1.6H, Prothrombin Time 18.7H, Activated Partial Thromboplast Time 37H, Alanine Aminotransferase (ALT/SGPT) 15, Albumin 1.9L, Alkaline Phosphatase 75, Anion Gap 6, Anisocytosis MARKED, Aspartate Amino Transf (AST/SGOT) 30, BUN/Creatinine Ratio 15, Band Neutrophils 5, Basophils # ( Auto) 0.0, Basophils % (Manual) 0, Basophils (%) (Auto) 0, Blood Urea Nitrogen 8 , Calcium Level 6.6L, Carbon Dioxide Level 21, Chloride Level 117H, Creatinine 0.52L, Eosinophils # (Auto) 0.0, Eosinophils % (Manual) 0, Eosinophils (%) (Auto ) 0, Estimat Glomerular Filtration Rate > 60, Glucose Level 97, Hematocrit 24L, Hypochromasia MARKED, Lactic Acid Level 1.1, Lymphocytes # (Auto) 0.5L, Lymphocytes % (Manual) 10, Lymphocytes (%) (Auto) 8L, Macrocytosis MODERATE, Magnesium Level 2.1, Mean Corpuscular Hemoglobin 28, Mean Corpuscular Hemoglobin Concent 34, Mean Corpuscular Volume 84, Mean Platelet Volume 9.7, Microcytosis MODERATE, Monocytes # (Auto) 0.3, Monocytes % (Manual) 3, Monocytes (%) (Auto) 4, Neutrophils # (Auto) 5.6, Neutrophils % (Manual) 82, Neutrophils (%) (Auto) 88H, Phosphorus Level 2.2L, Platelet Count 123L, Poikilocytosis SLIGHT, Polychromasia SLIGHT, Potassium Level 2.8L, Red Blood Count 2.82L, Red Cell Distribution Width 23.3H, Sodium Level 144, Target Cells MODERATE, Total Bilirubin 2.9H, Total Protein 5.8L, White Blood Count 6.3 12/06/16 10:00: Hemoglobin 9.3L Microbiology 12/03/16 Blood Culture - Preliminary, Resulted No growth 12/03/16 Urine Culture - Final, Complete Providencia Stuartii Proteus Mirabilis 12/03/16 Gram Stain - Final, Resulted 12/03/16 Wound Culture - Preliminary, Resulted Escherichia Coli Enterobacter Cloacae Enterococcus Faecium Pseudomonas Aeruginosa Staphylococcus Aureus Radiology Date of Exam: 12/04/16 CHEST 1 VIEW, AP/PA ONLY INDICATION: Sepsis. COMPARISON: 04/09/2016. FINDINGS: Right IJ central venous catheter has tip at the superior cavoatrial junction. Low lung volumes with bibasilar bronchovascular crowding and subsegmental atelectasis. No focal consolidation. Please note the posterior lower lobes are poorly evaluated by portable radiography. Stable cardiomediastinal silhouette. No pleural effusion or pneumothorax. IMPRESSION: 1. Bibasilar subsegmental atelectasis. No additional focal airspace disease or other acute cardiopulmonary process. Procedures Date of Exam: 12/05/16 CT ABDOMEN/PELVIS W PROCEDURE: CT abdomen and pelvis with contrast. TECHNIQUE: Multiple contiguous axial images were obtained through the abdomen and pelvis after administration of intravenous contrast. INDICATION: Air under the right hemidiaphragm concerning for pneumoperitoneum versus colonic air. 100 mL of Omnipaque 350 is administered intravenously. FINDINGS: There are bilateral small pleural effusions with bibasilar atelectasis. There is a moderate ascites seen. There is a rectal tube and a suprapubic catheter. The colon demonstrates moderate gaseous distention and moderate amount of fecal material. There is thickening and enhancement in the colonic wall involving mostly the rectosigmoid, may relate to colitis or could be part of the generalized edema and ascites. There is no bowel obstruction. There is no free peritoneal air. The liver, the gallbladder, the spleen, the adrenal glands and the pancreas appear unremarkable. The kidneys have symmetric enhancement and excretion. No hydronephrosis. No enhancing masses demonstrated. The abdominal aorta is normal in caliber. No para-aortic significantly enlarged lymph nodes seen. The osseous structures demonstrate deformities at the hip joints with chronic destruction of the proximal femur on both sides and deep soft tissue ulcers to the level of the ischium bilaterally. There are deformities and sclerotic changes seen in the proximal femoral shaft on both sides with hyperostosis. The bone destruction of the femoral head and neck is new from 2014 on the right side and chronic on the left. Sclerotic changes in the proximal femur and in the ischium bilaterally is probably related to chronic osteomyelitis. IMPRESSION: 1. Moderate ascites and bilateral small pleural effusions. There is generalized subcutaneous tissue edema around the abdomen also. 2. Colonic wall thickening most prominent in the distal colon. It could be also colonic edema and related to ascites or possibly from colitis. 3. No pneumoperitoneum. The air under the diaphragm seen on chest x-ray appears to relate to colonic gaseous distention. 4. Chronic appearing erosions in the pelvis and upper femurs with deep soft tissue ulcer seen. Assessment/Plan Assessment/Plan Admission Dx Severe Sepsis Multiple Decubitus Wounds Severe Anemia likely mixed iron Def with chronic disease Severe PEM Abnormal UA Hypocalcemia Hypokalemia Paraplegia Chronic indwelling Suprapubic Catheter Plan 61 yo paraplegic M that presents with large decubitus ulcers in Severe Sepsis Severe Sepsis - Initial IVF hydration completed, Blood pressure stable - Continue Zosyn/Vancomycin D4 Multiple Decubitus Wounds - Wound care consulted, appreciate recs Pulmonary Edema - Dr Boothe ordered dose of lasix, patients shortness of breath improved Possible free Air xray - Surgery consulted, CT does not show free air Severe Anemia likely mixed iron Def with chronic disease - s/p 3 units - + fecal occult Elevated INR: Improving, continue to monitor - s/p FFP and Vit K Elevated Bilirubin: stable - Likely 2/2 hemolysis from sepsis Severe PEM - Add protein shake for improved wound healing Abnormal UA: Likely 2/2 to indwelling catheter, not likely source of infection - Culture pending Hypocalcemia: Replaced multiple times, trending up Hypokalemia: Replace today Paraplegia - PT ordered Chronic indwelling Suprapubic Catheter: routine care FEN: Regular diet with protein shake with meals DVT PPX: SCDs, will start lovenox if hgb normalizes Dispo: Continue admit to ICU Social: Patient currently has guardian that is moving out of state soon. It is not a family member. Mr Hartley states that he would like to go home with his daughter but that has not been an option with his guardian. This daughter has not been up to that hospital and I have been unable to get a hold of her. Another daughter was present this afternoon and I went to talk to her and Mr Hartley. She seemed to get very upset when her father stated that he is not willing to get surgery if that is what is recommended. At this time Mr Hartley is not ready to change his code status. Diagnosis/Problems: Clinical Quality Measures DVT/VTE Risk/Contraindication: Risk Factor Score Per Nursin RFS Level Per Nursing on Admit: 4+=Very High PRESTON STILL MD Dec 06, 2016 10:13
[2016-12-06] MEDS ORDERED: POTASSIUM CL 10MEQ/50ML IVPB 50 ML IV SCH (11:00)
[2016-12-06 17:58] LABS: ALANINE AMINOTRANSFERASE 17 U/L (0-55); ALBUMIN 1.9 G/DL (3.2-4.5); ANION GAP 5 MMOL/L (5-14); ASPARTATE AMINO TRANSFERASE 33 U/L (5-34); BLOOD UREA NITROGEN 7 MG/DL (7-18); BUN/CREATININE RATIO 12; CALCIUM 6.6 MG/DL (8.5-10.1); CARBON DIOXIDE 25 MMOL/L (21-32); CHLORIDE 114 MMOL/L (98-107); CREATININE SERUM 0.57 MG/DL (0.60-1.30); GFR ESTIMATED > 60; GLUCOSE 99 MG/DL (70-105); POTASSIUM 3.2 MMOL/L (3.6-5.0); SODIUM 144 MMOL/L (135-145)
[2016-12-06] MEDS ORDERED: KCL 20 MEQ TAB (K-DUR) PO ONE ×2 (20:45→23:00)
[2016-12-06] MEDS ORDERED: morphine INJ 4 MG/ML 1 ML (VIAL/SYRINGE) ONE (22:29)
[2016-12-06] MEDS ORDERED: ALBUMIN 25% 25 GM/100 ML 200 ML IV ONE (22:30)
[2016-12-06] MEDS ORDERED: hydrALAZINE (APESOLINE) 20 MG/ML VIAL ONE (22:33)
[2016-12-06] MEDS ORDERED: morphine INJ 4 MG/ML 1 ML (VIAL/SYRINGE) IVP ONE (22:45)
[2016-12-06] MEDS ORDERED: hydrALAZINE (APESOLINE) 20 MG/ML VIAL IV ONE (22:45)
[2016-12-06] MEDS ORDERED: ALBUMIN 25% 25 GM/100 ML 100 ML IV ONE ×2 (22:45)
[2016-12-07] VITALS (11 sets, daily range): BP systolic 111–135; BP diastolic 76–102
[2016-12-07] MEDS: PIPERACILLIN SODIUM/TAZOBACTAM 4.5 GM in NS (IVPB) 100 ML IV SCH ×4 (00:52→23:47)
[2016-12-07] MEDS: NS IV 1000 ML 1,000 ML IV SCH ×2 (01:02→05:20)
[2016-12-07 04:48] LABS: BASOPHILS % (AUTO) 0 % (0-10); EOSINOPHILS % (AUTO) 0 % (0-10); LYMPHOCYTES # (AUTO) 1.2 X 10^3 (1.0-4.0); LYMPHOCYTES % (AUTO) 23 % (12-44); MEAN CORPUSCULAR HEMOGLOBIN 28 PG (25-34); MEAN CORPUSCULAR HGB CONC 33 G/DL (32-36); MEAN CORPUSCULAR VOLUME 86 FL (80-99); MEAN PLATELET VOLUME 9.2 FL (7.4-10.4); MONOCYTES # (AUTO) 0.4 X 10^3 (0.0-1.0); MONOCYTES % (AUTO) 7 % (0-12); NEUTROPHILS # (AUTO) 3.6 X 10^3 (1.8-7.8); NEUTROPHILS % (AUTO) 70 % (42-75); PLATELET COUNT 96 10^3/uL (130-400); RED BLOOD COUNT 2.68 10^6/uL (4.35-5.85); WHITE BLOOD COUNT 5.1 10^3/uL (4.3-11.0)
[2016-12-07 05:08] LABS: INR 1.8 (0.8-1.4); PROTHROMBIN TIME PATIENT 20.5 SEC (12.2-14.7)
[2016-12-07 05:16] LABS: ALANINE AMINOTRANSFERASE 15 U/L (0-55); ALBUMIN 2.8 G/DL (3.2-4.5); ANION GAP 7 MMOL/L (5-14); ASPARTATE AMINO TRANSFERASE 24 U/L (5-34); BILIRUBIN,TOTAL 2.3 MG/DL (0.1-1.0); BLOOD UREA NITROGEN 5 MG/DL (7-18); BUN/CREATININE RATIO 9; CALCIUM 7.2 MG/DL (8.5-10.1); CARBON DIOXIDE 27 MMOL/L (21-32); CHLORIDE 110 MMOL/L (98-107); CREATININE SERUM 0.55 MG/DL (0.60-1.30); GFR ESTIMATED > 60; GLUCOSE 79 MG/DL (70-105); MAGNESIUM 1.9 MG/DL (1.8-2.4); PHOSPHORUS 1.7 MG/DL (2.3-4.7); POTASSIUM 3.3 MMOL/L (3.6-5.0); SODIUM 144 MMOL/L (135-145); TOTAL PROTEIN 6.1 G/DL (6.4-8.2)
[2016-12-07] MEDS: MAGNESIUM 1 GM/100 ML IVPB 100 ML IV SCH (05:44)
[2016-12-07] MEDS ORDERED: KCL 20 MEQ TAB (K-DUR) PO ONE (05:45)
[2016-12-07] MEDS: POTASSIUM CL 10MEQ/50ML IVPB 50 ML IV SCH ×2 (05:46)
[2016-12-07] MEDS: VASOPRESSIN INJECTION 20 UNIT in NS (IVPB) 100 ML IV SCH (05:46)
[2016-12-07] MEDS: KCL 20 MEQ TAB (K-DUR) PO SCH (05:46)
--- NOTE | 2016-12-07 06:24 | Pulmonary Progress Note ---
Subjective Subjective/Events-last exam Pt feels improved now. Denies SOB or nausea. Exam Exam Vital Signs Date Time Temp Pulse Resp B/P Pulse Ox O2 Delivery O2 Flow Rate FiO2 12/07/16 04:00 96 3.00 12/07/16 03:00 91 9 127/95 98 Nasal Cannula 3.00 12/07/16 02:00 86 8 135/102 99 Nasal Cannula 3.00 12/07/16 01:04 86 12/07/16 01:00 85 9 121/94 98 Nasal Cannula 3.00 12/07/16 00:00 98 3.00 12/07/16 00:00 96.0 87 20 131/97 98 Nasal Cannula 3.00 12/06/16 23:00 110 22 132/103 99 Nasal Cannula 3.00 12/06/16 22:00 98 14 135/100 99 Nasal Cannula 3.00 12/06/16 21:00 101 21 144/105 97 Nasal Cannula 3.00 12/06/16 20:00 97.3 97 20 129/94 99 Nasal Cannula 3.00 12/06/16 20:00 98 3.00 12/06/16 19:54 97 2.00 12/06/16 19:40 99 3.00 12/06/16 19:00 107 17 134/101 100 Nasal Cannula 3.00 12/06/16 19:00 117 12/06/16 18:00 98 16 131/93 99 Nasal Cannula 3.00 12/06/16 17:00 105 37 130/94 100 Nasal Cannula 3.00 12/06/16 16:00 99 3.00 12/06/16 16:00 97.5 Nasal Cannula 3.00 12/06/16 15:00 105 17 121/90 99 Nasal Cannula 3.00 12/06/16 14:00 101 17 140/102 99 Nasal Cannula 3.00 12/06/16 13:00 105 20 130/99 96 Nasal Cannula 3.00 12/06/16 13:00 106 12/06/16 12:00 103 15 125/90 100 Nasal Cannula 3.00 12/06/16 12:00 96.8 Nasal Cannula 3.00 12/06/16 12:00 99 3.00 12/06/16 11:00 95 15 126/95 100 Nasal Cannula 3.00 12/06/16 10:00 96 13 119/90 100 Nasal Cannula 3.00 12/06/16 09:00 86 12 121/96 100 Nasal Cannula 3.00 12/06/16 08:00 99 3.00 12/06/16 08:00 96.0 95 16 139/91 99 Nasal Cannula 3.00 12/06/16 07:00 96 18 99 Nasal Cannula 3.00 12/06/16 07:00 89 12/06/16 06:24 97 2.00 I & O 12/07/16 07:00 Intake Total 2060 ml Output Total 7900 ml Balance -5840 ml General Appearance: No Apparent Distress WD/WN HEENT: Pale Conjunctivae (L) Neck: Full Range of Motion Normal Inspection Respiratory: No Accessory Muscle Use No Respiratory Distress Decreased Breath Sounds Cardiovascular: Regular Rate, Rhythm Capillary Refill: Less Than 3 Seconds Peripheral Pulses: 0 Carotid (R), 0 Carotid (L), 0 Femoral (R), 0 Femoral (L), 0 Dorsalis Pedis (R), 0 Left Dors-Pedis (L), 0 Radial Pulses (R), 0 Radial Pulses (L) Gastrointestinal: soft (distended, nontender no guarding or rebounding, suprapubic catheter.) distended (mild) Neurologic/Psychiatric: Alert Oriented x3 Skin: Warm/Dry Pallor Lymphatic: No Adenopathy Results Lab Laboratory Tests 12/05/16 18:40 12/06/16 01:30 12/06/16 04:15 12/06/16 10:00 12/06/16 17:20 12/07/16 04:40 Assessment/Plan Assessment/Plan Severe sepsis secondary to skin ulcers -wound care consulted -Yango and groversyn Pulmonary edema -Hep lock IVF nausea -zofran Severe anemia with coagulopathy s/p transfusion vit K and FFP Atelectasis -IS and monitor electrolyte imbalance -replacing all electrolytes Debility Hypotension-- resolved -now off levophed -responded IVF -currently IVF at 150 Metabolic acidosis-- resolved s/p 2 amps of NaHC03 PT is doing much better will transfer to 4th floor. Clinical Quality Measures DVT/VTE Risk/Contraindication: Risk Factor Score Per Nursin RFS Level Per Nursing on Admit: 4+=Very High ROCHELLE ZARAGOZA DO Dec 07, 2016 06:24
[2016-12-07] MEDS: CYCLOBENZAPRINE 10 MG (FLEXERIL) TAB PO SCH ×3 (06:42→21:36)
[2016-12-07] MEDS ORDERED: SODIUM PHOSPHATE IV NR (06:44)
[2016-12-07] MEDS ORDERED: NS IV NR (06:44)
--- NOTE | 2016-12-07 07:43 | Diagnostic Imaging Report ---
Portable upright radiograph of the chest. INDICATION: Sepsis. FINDINGS: There is a right internal jugular venous line with the tip at the SVC level. There are bilateral infrahilar and basilar infiltrates or atelectasis again noted. Allowing for technique and positional changes, no significant difference is seen from 12/06/2016, exam. The heart size is normal. There is possible small effusion on each side. This can be better assessed on a lateral radiograph. The mediastinum and ibeth appear unremarkable. IMPRESSION: Bilateral perihilar and basilar infiltrates and/or atelectasis with no significant change. Dictated by: Dictated on workstation # [id number]
[2016-12-07] MEDS ORDERED: KCL 20 MEQ TAB (K-DUR) PO NR (08:00)
[2016-12-07] MEDS: RT-ALBUTEROL/IPRATROPIUM 3 ML (DUONEB) VIAL INH PRN (08:05)
[2016-12-07] MEDS: PANTOPRAZOLE 40 MG/10 ML (PROTONIX) VIAL IV SCH ×2 (08:32→21:35)
[2016-12-07] MEDS: VANCOMYCIN 1 GM/NS 250 ML IVPB IV SCH ×4 (08:32→21:36)
[2016-12-07] MEDS: SERTRALINE 100 MG (ZOLOFT) TAB PO SCH (08:33)
[2016-12-07] MEDS: OXYBUTYNIN (DITROPAN) 5 MG TAB PO SCH ×2 (08:33→21:36)
[2016-12-07] MEDS ORDERED: VANCOMYCIN ORAL SUSPENSION 60 ML BOTTLE PO SCH (13:30)
--- NOTE | 2016-12-07 13:38 | Progress Note (SOAP) ---
Subjective Subjective/Events-last exam Pt transferred to [facility]. diff + Date seen by provider: Dec 07, 2016 Time seen by provider: 13:05 Objective Exam Last Set of Vital Signs Vital Signs Date Time Temp Pulse Resp B/P Pulse Ox O2 Delivery O2 Flow Rate FiO2 12/07/16 11:52 96.0 89 16 130/99 98 Room Air 12/07/16 08:05 3.00 Capillary Refill : Less Than 3 Seconds I&O Intake and Output 12/07/16 00:00 Intake Total 2360 ml Output Total 5725 ml Balance -3365 ml Intake Oral 1610 ml IV Total 750 ml Output Urine Total 5725 ml General: Alert, Oriented X3, Cooperative Psych/Mental Status: Mood NL Results/Procedures Lab Laboratory Tests 12/06/16 13:08: Lab Scanned Report Transfusion Reaction Form 12/06/16 17:20: Alanine Aminotransferase (ALT/SGPT) 17, Albumin 1.9L, Alkaline Phosphatase 85, Anion Gap 5, Aspartate Amino Transf (AST/SGOT) 33, BUN/Creatinine Ratio 12, Blood Urea Nitrogen 7, Calcium Level 6.6L, Carbon Dioxide Level 25, Chloride Level 114H, Creatinine 0.57L, Estimat Glomerular Filtration Rate > 60, Glucose Level 99, Potassium Level 3.2L, Sodium Level 144, Total Bilirubin 2.0H, Total Protein 6.0L 12/07/16 04:40: Alanine Aminotransferase (ALT/SGPT) 15, Albumin 2.8L, Alkaline Phosphatase 70, Anion Gap 7, Aspartate Amino Transf (AST/SGOT) 24, BUN/Creatinine Ratio 9, Blood Urea Nitrogen 5L, Calcium Level 7.2L, Carbon Dioxide Level 27, Chloride Level 110H, Creatinine 0.55L, Estimat Glomerular Filtration Rate > 60, Glucose Level 79, Potassium Level 3.3L, Sodium Level 144, Total Bilirubin 2.3H, Total Protein 6.1L, Activated Partial Thromboplast Time 39H, Basophils # (Auto) 0.0, Basophils (%) (Auto) 0, Eosinophils # (Auto) 0.0, Eosinophils (%) (Auto) 0, Hematocrit 23L, Hemoglobin 7.6L, INR Comment 1.8H, Lymphocytes # (Auto) 1.2, Lymphocytes (%) (Auto) 23, Magnesium Level 1.9, Mean Corpuscular Hemoglobin 28, Mean Corpuscular Hemoglobin Concent 33, Mean Corpuscular Volume 86, Mean Platelet Volume 9.2, Monocytes # (Auto) 0.4, Monocytes (%) (Auto) 7, Neutrophils # (Auto) 3.6, Neutrophils (%) (Auto) 70, Phosphorus Level 1.7L, Platelet Count 96L, Prothrombin Time 20.5H, Red Blood Count 2.68L, Red Cell Distribution Width 23.0H, White Blood Count 5.1 Microbiology 12/03/16 Blood Culture - Preliminary, Resulted No growth 12/06/16 C. difficile GDH Antigen & Toxins - Final, Complete 12/03/16 Urine Culture - Final, Complete Providencia Stuartii Proteus Mirabilis 12/03/16 Gram Stain - Final, Resulted 12/03/16 Wound Culture - Preliminary, Resulted Escherichia Coli Enterobacter Cloacae Enterococcus Faecium Pseudomonas Aeruginosa Staphylococcus Aureus Radiology Date of Exam: 12/04/16 CHEST 1 VIEW, AP/PA ONLY INDICATION: Sepsis. COMPARISON: 04/09/2016. FINDINGS: Right IJ central venous catheter has tip at the superior cavoatrial junction. Low lung volumes with bibasilar bronchovascular crowding and subsegmental atelectasis. No focal consolidation. Please note the posterior lower lobes are poorly evaluated by portable radiography. Stable cardiomediastinal silhouette. No pleural effusion or pneumothorax. IMPRESSION: 1. Bibasilar subsegmental atelectasis. No additional focal airspace disease or other acute cardiopulmonary process. Procedures Date of Exam: 12/05/16 CT ABDOMEN/PELVIS W PROCEDURE: CT abdomen and pelvis with contrast. TECHNIQUE: Multiple contiguous axial images were obtained through the abdomen and pelvis after administration of intravenous contrast. INDICATION: Air under the right hemidiaphragm concerning for pneumoperitoneum versus colonic air. 100 mL of Omnipaque 350 is administered intravenously. FINDINGS: There are bilateral small pleural effusions with bibasilar atelectasis. There is a moderate ascites seen. There is a rectal tube and a suprapubic catheter. The colon demonstrates moderate gaseous distention and moderate amount of fecal material. There is thickening and enhancement in the colonic wall involving mostly the rectosigmoid, may relate to colitis or could be part of the generalized edema and ascites. There is no bowel obstruction. There is no free peritoneal air. The liver, the gallbladder, the spleen, the adrenal glands and the pancreas appear unremarkable. The kidneys have symmetric enhancement and excretion. No hydronephrosis. No enhancing masses demonstrated. The abdominal aorta is normal in caliber. No para-aortic significantly enlarged lymph nodes seen. The osseous structures demonstrate deformities at the hip joints with chronic destruction of the proximal femur on both sides and deep soft tissue ulcers to the level of the ischium bilaterally. There are deformities and sclerotic changes seen in the proximal femoral shaft on both sides with hyperostosis. The bone destruction of the femoral head and neck is new from 2014 on the right side and chronic on the left. Sclerotic changes in the proximal femur and in the ischium bilaterally is probably related to chronic osteomyelitis. IMPRESSION: 1. Moderate ascites and bilateral small pleural effusions. There is generalized subcutaneous tissue edema around the abdomen also. 2. Colonic wall thickening most prominent in the distal colon. It could be also colonic edema and related to ascites or possibly from colitis. 3. No pneumoperitoneum. The air under the diaphragm seen on chest x-ray appears to relate to colonic gaseous distention. 4. Chronic appearing erosions in the pelvis and upper femurs with deep soft tissue ulcer seen. Assessment/Plan Assessment/Plan Admission Dx Severe Sepsis Multiple Decubitus Wounds Severe Anemia likely mixed iron Def with chronic disease Severe PEM Abnormal UA Hypocalcemia Hypokalemia Paraplegia Chronic indwelling Suprapubic Catheter Plan 61 yo paraplegic M that presents with large decubitus ulcers in Severe Sepsis Severe Sepsis - Initial IVF hydration completed, Blood pressure stable - Continue Zosyn/Vancomycin D5 C.Diff 2/3 - no prior hx of C. diff infection; start po Vanc due to the risk of severe disease (age >60, alb <2.5) Multiple Decubitus Wounds - Wound care consulted, appreciate recs Pulmonary Edema - Dr Boothe ordered dose of lasix, patients shortness of breath improved Possible free Air xray - Surgery consulted, CT does not show free air 2/3- Pt does not want intervention, surgery signed off Severe Anemia likely mixed iron Def with chronic disease - s/p 3 units - + fecal occult 2/3 - Hb 7.6, repeat in am Elevated INR: Improving, continue to monitor - s/p FFP and Vit K Elevated Bilirubin: stable - Likely 2/2 hemolysis from sepsis Severe PEM - Add protein shake for improved wound healing Abnormal UA: Likely 2/2 to indwelling catheter, not likely source of infection - Culture pending Hypocalcemia: Replaced multiple times, trending up Hypokalemia: Replace today Paraplegia - PT ordered Chronic indwelling Suprapubic Catheter: routine care FEN: Regular diet with protein shake with meals DVT PPX: SCDs, will start lovenox if hgb normalizes Dispo: Transferred to 4th floor 12/07/16 Social: Patient currently has guardian that is moving out of state soon. It is not a family member. Mr Hartley states that he would like to go home with his daughter but that has not been an option with his guardian. This daughter has not been up to that hospital and I have been unable to get a hold of her. Another daughter was present this afternoon and I went to talk to her and Mr Hartley. She seemed to get very upset when her father stated that he is not willing to get surgery if that is what is recommended. At this time Mr Hartley is not ready to change his code status. 12/07 - Per SANDRA, prior guardian is no longer active guardian, plans to hotline to [facility] to obtain new guardian. SANDRA discussed w/ Boo that pt will be discharged back to [place] from . Diagnosis/Problems: Clinical Quality Measures DVT/VTE Risk/Contraindication: Risk Factor Score Per Nursin RFS Level Per Nursing on Admit: 4+=Very High RIKKI FERGUSON DO Dec 07, 2016 13:38
[2016-12-07] MEDS: VANCOMYCIN ORAL 250 MG/5 ML 60 ML PO SCH ×4 (14:33→21:36)
[2016-12-08] VITALS: BP 121/82
[2016-12-08] MEDS: VANCOMYCIN ORAL 250 MG/5 ML 60 ML PO SCH ×8 (02:27→19:53)
[2016-12-08 04:00] VITALS: BP 122/68
[2016-12-08] MEDS: CYCLOBENZAPRINE 10 MG (FLEXERIL) TAB PO SCH ×3 (05:00→21:50)
[2016-12-08 05:08] LABS: BASOPHILS % (AUTO) 0 % (0-10); EOSINOPHILS # (AUTO) 0.1 10^3/uL (0.0-0.3); EOSINOPHILS % (AUTO) 1 % (0-10); LYMPHOCYTES # (AUTO) 1.5 X 10^3 (1.0-4.0); LYMPHOCYTES % (AUTO) 30 % (12-44); MEAN CORPUSCULAR HEMOGLOBIN 27 PG (25-34); MEAN CORPUSCULAR HGB CONC 32 G/DL (32-36); MEAN CORPUSCULAR VOLUME 85 FL (80-99); MEAN PLATELET VOLUME 9.1 FL (7.4-10.4); MONOCYTES # (AUTO) 0.3 X 10^3 (0.0-1.0); MONOCYTES % (AUTO) 6 % (0-12); NEUTROPHILS # (AUTO) 3.1 X 10^3 (1.8-7.8); NEUTROPHILS % (AUTO) 62 % (42-75); PLATELET COUNT 105 10^3/uL (130-400); RED BLOOD COUNT 3.16 10^6/uL (4.35-5.85); RED CELL DISTRIBUTION WIDTH 23.4 % (10.0-14.5)
[2016-12-08 06:03] LABS: ALANINE AMINOTRANSFERASE 14 U/L (0-55); ALBUMIN 2.1 G/DL (3.2-4.5); ANION GAP 5 MMOL/L (5-14); ASPARTATE AMINO TRANSFERASE 24 U/L (5-34); BILIRUBIN,TOTAL 1.7 MG/DL (0.1-1.0); BLOOD UREA NITROGEN 4 MG/DL (7-18); BUN/CREATININE RATIO 7; CALCIUM 7.1 MG/DL (8.5-10.1); CARBON DIOXIDE 24 MMOL/L (21-32); CHLORIDE 110 MMOL/L (98-107); CREATININE SERUM 0.55 MG/DL (0.60-1.30); GFR ESTIMATED > 60; GLUCOSE 70 MG/DL (70-105); MAGNESIUM 1.6 MG/DL (1.8-2.4); PHOSPHORUS 1.7 MG/DL (2.3-4.7); POTASSIUM 3.8 MMOL/L (3.6-5.0); SODIUM 139 MMOL/L (135-145); TOTAL PROTEIN 5.6 G/DL (6.4-8.2)
[2016-12-08 08:19] VITALS: BP 129/91
[2016-12-08] MEDS: OXYBUTYNIN (DITROPAN) 5 MG TAB PO SCH ×2 (09:39→21:50)
[2016-12-08] MEDS: SERTRALINE 100 MG (ZOLOFT) TAB PO SCH (09:39)
[2016-12-08] MEDS: PIPERACILLIN SODIUM/TAZOBACTAM 4.5 GM in NS (IVPB) 100 ML IV SCH ×2 (09:41→14:52)
[2016-12-08] MEDS: PANTOPRAZOLE 40 MG/10 ML (PROTONIX) VIAL IV SCH ×2 (09:41→21:50)
--- NOTE | 2016-12-08 11:50 | Physical Therapy Evaluation ---
PT Evaluation-General Medical Diagnosis Admission Date Dec 03, 2016 at 18:41 Onset Date: Dec 08, 2016 Therapy Diagnosis Therapy Diagnosis: difficulty transferring Height/Weight Height (Feet): 5 Height (Inches): 8.00 Weight (Pounds): 140 Weight (Ounces): 5.0 Precautions Precautions/Isolations: Fall Prevention, Standard Precautions Referral Physician: Shelly Gonzales MD Social History Home: [place] Prior/Core FIM Prior Level of Function Functional [place] Measure 0=Not Assessed/NA 4=Minimal Assistance 1=Total Assistance 5=Supervision or Setup 2=Maximal Assistance 6=Modified [place] 3=Moderate Assistance 7=Complete [place] Bed Mobility: 5 Transfers (B,C,W/C) (FIM): 1 Gait: 0 Locomotion: 0 Wheelchair Mobility: 6 PT Evaluation-Current Subjective States that he is doing okay. The patient states that he has not walked in 20 years and that he just transfers and that he uses a power WC however it is currently broken. Pain Numeric Pain Scale: 0-No Pain Objective Patient Orientation: Person, Place, Time, Situation ROM/Strength ROM Upper Extremities WFL ROM Lower Extremities (R) LE contracted in flexion (L) LE has full PROM Strength Upper Extremities 5/5 Strenght Lower Extremities 0/5 Integumentary/Posture Integumentary sacral decubitus ulcers Bladder Incontinence: Holden Cath Sensory Sensation Right Upper Extremit: Intact Sensation Left Upper Extremity: Intact Sensation Right Lower Extremit: Impaired Sensation Left Lower Extremity: Impaired Transfers Functional [place] Measure 0=Not Assessed/NA 4=Minimal Assistance 1=Total Assistance 5=Supervision or Setup 2=Maximal Assistance 6=Modified [place] 3=Moderate Assistance 7=Complete [place] Transfers (B, C, W/C) (FIM): 0 Scootin Rollin Supine to/from Sit: 5 Sit to/from Stand: 0 bed t/f WC(FIM only if WC use): 0 Gait Mode of Locomotion: Wheelchair Anticipated Mode of Locomotion: Wheelchair Distance (FIM): 0=does not occure Balance Sitting Static: Good Sitting Dynamic: Fair Assessment/Needs 61 y.o. resident of a NH. The patient has a diagnosis of sepsis. His baseline is wheelchair bound and independent with bed mobility. He does need max assist for bed to chair transfers. Rehab Potential: Good PT Short Term Goals Short Term Goals Time Frame: Dec 15, 2016 Wheelchair Distance: 150 feet Wheelchair Level of Assist: 5 Additional Short Term Goals Patient will perform all bed mobility with modified independence. PT Fpc Goals Guide Excursion Goals Wheelchair (FIM): 6 Wheelchair distance (FIM): 3=150 ft Distance: 300 feet Wheelchair Level of Assist: 6 Patient will perform all bed mobility independently. PT Plan Problem List Problem List: Activity Tolerance, Functional Strength, Safety, Bed Mobility Treatment/Plan Treatment Plan: Continue Plan of Care Treatment Plan: Bed Mobility, Education, Functional Activity Paulie, Functional Strength, Safety, Therapeutic Exercise, Transfers # of days/week 6 Visits Per Week: 11x/week Minutes/Day (M-F): 30-60 Minutes/Day (Sat/Elaine): 30 Discharge Recommendations Therapy D/C Recommendations: Correction Placement Time/GCodes Time In: 1130 Time Out: 1150 Total Billed Treatment Time: 20' Total Billed Treatment 1, EVLOWC x 20' G Codes Necessary: LEANN Dominguez PT Dec 08, 2016 11:50
[2016-12-08 12:00] VITALS: BP 132/93
--- NOTE | 2016-12-08 12:30 | Progress Note (SOAP) ---
Subjective Subjective/Events-last exam Feeling good this AM. Tolerating PO. + watery stool via rectal tube Date seen by provider: Dec 08, 2016 Objective Exam Last Set of Vital Signs Vital Signs Date Time Temp Pulse Resp B/P Pulse Ox O2 Delivery O2 Flow Rate FiO2 12/08/16 08:19 96.3 106 16 129/91 97 Room Air 12/07/16 08:05 3.00 Capillary Refill : Less Than 3 Seconds I&O Intake and Output 12/08/16 00:00 Intake Total 2496.6 ml Output Total 5550 ml Balance -3053.4 ml Intake Oral 1230 ml IV Total 1266.6 ml Output Urine Total 5550 ml General: Alert, Oriented X3, Cooperative, No Acute Distress Lungs: Clear to Auscultation, Normal Air Movement Heart: Regular Rate, Normal S1, Normal S2, No Murmurs Abdomen: Normal Bowel Sounds, Soft, No Tenderness Extremities: No Edema, No Tenderness/Swelling Neuro: Normal Speech Psych/Mental Status: Mental Status NL Results/Procedures Lab Laboratory Tests 12/08/16 05:00: Alanine Aminotransferase (ALT/SGPT) 14, Albumin 2.1L, Alkaline Phosphatase 78, Anion Gap 5, Aspartate Amino Transf (AST/SGOT) 24, BUN/Creatinine Ratio 7, Basophils # (Auto) 0.0, Basophils (%) (Auto) 0, Blood Urea Nitrogen 4L, Calcium Level 7.1L, Carbon Dioxide Level 24, Chloride Level 110H, Creatinine 0.55L, Eosinophils # (Auto) 0.1, Eosinophils (%) (Auto) 1, Estimat Glomerular Filtration Rate > 60, Glucose Level 70, Hematocrit 27L, Hemoglobin 8.6L, Lymphocytes # (Auto) 1.5, Lymphocytes (%) (Auto) 30, Magnesium Level 1.6L, Mean Corpuscular Hemoglobin 27, Mean Corpuscular Hemoglobin Concent 32, Mean Corpuscular Volume 85, Mean Platelet Volume 9.1, Monocytes # (Auto) 0.3, Monocytes (%) (Auto) 6, Neutrophils # (Auto) 3.1, Neutrophils (%) (Auto) 62, Phosphorus Level 1.7L, Platelet Count 105L, Potassium Level 3.8, Red Blood Count 3.16L, Red Cell Distribution Width 23.4H, Sodium Level 139, Total Bilirubin 1.7H, Total Protein 5.6L, White Blood Count 5.0 Microbiology 12/03/16 Blood Culture - Preliminary, Resulted No growth 12/06/16 C. difficile GDH Antigen & Toxins - Final, Complete 12/03/16 Urine Culture - Final, Complete Providencia Stuartii Proteus Mirabilis 12/03/16 Gram Stain - Final, Complete 12/03/16 Wound Culture - Final, Complete Escherichia Coli Enterobacter Cloacae Enterococcus Faecium Pseudomonas Aeruginosa Staphylococcus Aureus Radiology Date of Exam: 12/04/16 CHEST 1 VIEW, AP/PA ONLY INDICATION: Sepsis. COMPARISON: 04/09/2016. FINDINGS: Right IJ central venous catheter has tip at the superior cavoatrial junction. Low lung volumes with bibasilar bronchovascular crowding and subsegmental atelectasis. No focal consolidation. Please note the posterior lower lobes are poorly evaluated by portable radiography. Stable cardiomediastinal silhouette. No pleural effusion or pneumothorax. IMPRESSION: 1. Bibasilar subsegmental atelectasis. No additional focal airspace disease or other acute cardiopulmonary process. Procedures Date of Exam: 12/05/16 CT ABDOMEN/PELVIS W PROCEDURE: CT abdomen and pelvis with contrast. TECHNIQUE: Multiple contiguous axial images were obtained through the abdomen and pelvis after administration of intravenous contrast. INDICATION: Air under the right hemidiaphragm concerning for pneumoperitoneum versus colonic air. 100 mL of Omnipaque 350 is administered intravenously. FINDINGS: There are bilateral small pleural effusions with bibasilar atelectasis. There is a moderate ascites seen. There is a rectal tube and a suprapubic catheter. The colon demonstrates moderate gaseous distention and moderate amount of fecal material. There is thickening and enhancement in the colonic wall involving mostly the rectosigmoid, may relate to colitis or could be part of the generalized edema and ascites. There is no bowel obstruction. There is no free peritoneal air. The liver, the gallbladder, the spleen, the adrenal glands and the pancreas appear unremarkable. The kidneys have symmetric enhancement and excretion. No hydronephrosis. No enhancing masses demonstrated. The abdominal aorta is normal in caliber. No para-aortic significantly enlarged lymph nodes seen. The osseous structures demonstrate deformities at the hip joints with chronic destruction of the proximal femur on both sides and deep soft tissue ulcers to the level of the ischium bilaterally. There are deformities and sclerotic changes seen in the proximal femoral shaft on both sides with hyperostosis. The bone destruction of the femoral head and neck is new from 2014 on the right side and chronic on the left. Sclerotic changes in the proximal femur and in the ischium bilaterally is probably related to chronic osteomyelitis. IMPRESSION: 1. Moderate ascites and bilateral small pleural effusions. There is generalized subcutaneous tissue edema around the abdomen also. 2. Colonic wall thickening most prominent in the distal colon. It could be also colonic edema and related to ascites or possibly from colitis. 3. No pneumoperitoneum. The air under the diaphragm seen on chest x-ray appears to relate to colonic gaseous distention. 4. Chronic appearing erosions in the pelvis and upper femurs with deep soft tissue ulcer seen. Assessment/Plan Assessment/Plan Admission Dx Severe Sepsis Multiple Decubitus Wounds Severe Anemia likely mixed iron Def with chronic disease Severe PEM Abnormal UA Hypocalcemia Hypokalemia Paraplegia Chronic indwelling Suprapubic Catheter Plan 61 yo paraplegic M that presents with large decubitus ulcers in Severe Sepsis Severe Sepsis: Resolved C.Diff 2/3 - no prior hx of C. diff infection; start po Vanc due to the risk of severe disease (age >60, alb <2.5) 2/4 - Continue PO vanco, still having liquid stools Multiple Decubitus Wounds - Wound care consulted, appreciate recs Pulmonary Edema - Dr Boothe ordered dose of lasix, patients shortness of breath improved Possible free Air xray - Surgery consulted, CT does not show free air 2/3- Pt does not want intervention, surgery signed off Severe Anemia likely mixed iron Def with chronic disease - s/p 3 units - + fecal occult 2/3 - Hb 7.6, repeat in am Elevated INR: Improving, continue to monitor - s/p FFP and Vit K Elevated Bilirubin: stable - Likely 2/2 hemolysis from sepsis Severe PEM - Add protein shake for improved wound healing Abnormal UA: Likely 2/2 to indwelling catheter, not likely source of infection - Culture pending Hypocalcemia: Replaced multiple times, trending up Hypokalemia: Replace today Paraplegia - PT ordered Chronic indwelling Suprapubic Catheter: routine care FEN: Regular diet with protein shake with meals DVT PPX: SCDs, will start lovenox if hgb normalizes Dispo: Transferred to 4th floor 12/07/16 Social: Patient currently has guardian that is moving out of state soon. It is not a family member. Mr Hartley states that he would like to go home with his daughter but that has not been an option with his guardian. This daughter has not been up to that hospital and I have been unable to get a hold of her. Another daughter was present this afternoon and I went to talk to her and Mr Hartley. She seemed to get very upset when her father stated that he is not willing to get surgery if that is what is recommended. At this time Mr Hartley is not ready to change his code status. 2/3 - Per SANDRA, prior guardian is no longer active guardian, SANDRA plans to hotline to [facility] to obtain new guardian. SANDRA discussed w/ Boo that pt will be discharged back to [place] from . Diagnosis/Problems: Clinical Quality Measures DVT/VTE Risk/Contraindication: Risk Factor Score Per Nursin RFS Level Per Nursing on Admit: 4+=Very High PRESTON STILL MD Dec 08, 2016 12:29
[2016-12-08 16:31] VITALS: BP 118/87
--- NOTE | 2016-12-08 19:14 | Wound Care Progress Note ---
Subjective Subjective Subjective/Events-last exam 61 year old male admitted with sepsis and UTI. Has extensive stage 4 pressure ulcers involving bilateral trochanters, bilateral ischia, sacrum and perineum. The patient has years-long history of non-adherence to care recommendation. PMFSH: No significant interval change. Review of Systems Pulmonary: No Dyspnea Cardiovascular: No: Chest Pain Objective Exam Last Set of Vital Signs Vital Signs Date Time Temp Pulse Resp B/P Pulse Ox O2 Delivery O2 Flow Rate FiO2 12/08/16 18:45 99 12/08/16 16:31 98.8 115 20 118/87 Room Air 12/07/16 08:05 3.00 Capillary Refill : Less Than 3 SecondsLess Than 3 Seconds I&O Intake and Output 12/08/16 00:00 Intake Total 2496.6 ml Output Total 5550 ml Balance -3053.4 ml Intake Oral 1230 ml IV Total 1266.6 ml Output Urine Total 5550 ml General: Alert, No Acute Distress HEENT: Atraumatic Lungs: Normal Air Movement Skin: Other (The mentioned wounds are unchanged from previous evaluations, per NS report.) Results Lab Laboratory Tests 12/08/16 05:00: Alanine Aminotransferase (ALT/SGPT) 14, Albumin 2.1L, Alkaline Phosphatase 78, Anion Gap 5, Aspartate Amino Transf (AST/SGOT) 24, BUN/Creatinine Ratio 7, Basophils # (Auto) 0.0, Basophils (%) (Auto) 0, Blood Urea Nitrogen 4L, Calcium Level 7.1L, Carbon Dioxide Level 24, Chloride Level 110H, Creatinine 0.55L, Eosinophils # (Auto) 0.1, Eosinophils (%) (Auto) 1, Estimat Glomerular Filtration Rate > 60, Glucose Level 70, Hematocrit 27L, Hemoglobin 8.6L, Lymphocytes # (Auto) 1.5, Lymphocytes (%) (Auto) 30, Magnesium Level 1.6L, Mean Corpuscular Hemoglobin 27, Mean Corpuscular Hemoglobin Concent 32, Mean Corpuscular Volume 85, Mean Platelet Volume 9.1, Monocytes # (Auto) 0.3, Monocytes (%) (Auto) 6, Neutrophils # (Auto) 3.1, Neutrophils (%) (Auto) 62, Phosphorus Level 1.7L, Platelet Count 105L, Potassium Level 3.8, Red Blood Count 3.16L, Red Cell Distribution Width 23.4H, Sodium Level 139, Total Bilirubin 1.7H, Total Protein 5.6L, White Blood Count 5.0 Microbiology 12/03/16 Blood Culture - Preliminary, Resulted No growth 12/06/16 C. difficile GDH Antigen & Toxins - Final, Complete 12/03/16 Urine Culture - Final, Complete Providencia Stuartii Proteus Mirabilis 12/03/16 Gram Stain - Final, Complete 12/03/16 Wound Culture - Final, Complete Escherichia Coli Enterobacter Cloacae Enterococcus Faecium Pseudomonas Aeruginosa Staphylococcus Aureus Assessment/Plan Assessment/Plan Assessment/Plan 1. Multiple stage 4 pressure ulcers with underlying osteomyelitis. 2. Quadriplegia. 3. History of non-adherence to care recommendations. Plan: Continue present dressings. ERMIAS AMARO MD Dec 08, 2016 19:14
[2016-12-08 20:38] VITALS: BP 133/91
[2016-12-09] VITALS (7 sets, daily range): BP systolic 100–127; BP diastolic 72–90
[2016-12-09] MEDS: PIPERACILLIN SODIUM/TAZOBACTAM 4.5 GM in NS (IVPB) 100 ML IV SCH ×3 (00:07→17:14)
[2016-12-09] MEDS: VANCOMYCIN ORAL 250 MG/5 ML 60 ML PO SCH ×8 (02:40→20:41)
[2016-12-09] MEDS: CYCLOBENZAPRINE 10 MG (FLEXERIL) TAB PO SCH ×3 (05:14→20:51)
[2016-12-09] MEDS: VANCOMYCIN 1 GM/NS 250 ML IVPB IV SCH ×4 (09:54→20:44)
[2016-12-09] MEDS: PANTOPRAZOLE 40 MG/10 ML (PROTONIX) VIAL IV SCH ×2 (09:57→20:40)
[2016-12-09] MEDS: OXYBUTYNIN (DITROPAN) 5 MG TAB PO SCH ×2 (09:59→20:47)
[2016-12-09] MEDS: SERTRALINE 100 MG (ZOLOFT) TAB PO SCH (09:59)
[2016-12-09] MEDS: DAKIN'S 1/4 STRENGTH (0.125%) 473 ML BTL TOP SCH ×2 (10:07→14:30)
--- NOTE | 2016-12-09 11:01 | Progress Note (SOAP) ---
Subjective Subjective/Events-last exam No events overnight. Tolerating PO diet. Still having watery diarrhea. Denies any pain Date seen by provider: Dec 09, 2016 Objective Exam Last Set of Vital Signs Vital Signs Date Time Temp Pulse Resp B/P Pulse Ox O2 Delivery O2 Flow Rate FiO2 12/09/16 08:00 97.9 104 16 116/77 96 12/09/16 07:54 Room Air 12/07/16 08:05 3.00 Capillary Refill : Less Than 3 SecondsLess Than 3 Seconds I&O Intake and Output 12/09/16 00:00 Intake Total 3210 ml Output Total 3050 ml Balance 160 ml Intake Oral 2910 ml IV Total 300 ml Output Urine Total 3050 ml # Bowel Movements 1 General: Alert, Oriented X3, Cooperative, No Acute Distress Lungs: Clear to Auscultation, Normal Air Movement Heart: Regular Rate, Normal S1, Normal S2, No Murmurs Abdomen: Normal Bowel Sounds, Soft, No Tenderness Extremities: No Edema, No Tenderness/Swelling Skin: Other (Wounds are bandaged) Psych/Mental Status: Mental Status NL, Mood NL Results/Procedures Lab Microbiology 12/03/16 Blood Culture - Preliminary, Resulted No growth 12/06/16 C. difficile GDH Antigen & Toxins - Final, Complete 12/03/16 Urine Culture - Final, Complete Providencia Stuartii Proteus Mirabilis 12/03/16 Gram Stain - Final, Complete 12/03/16 Wound Culture - Final, Complete Escherichia Coli Enterobacter Cloacae Enterococcus Faecium Pseudomonas Aeruginosa Staphylococcus Aureus Radiology Date of Exam: 12/04/16 CHEST 1 VIEW, AP/PA ONLY INDICATION: Sepsis. COMPARISON: 04/09/2016. FINDINGS: Right IJ central venous catheter has tip at the superior cavoatrial junction. Low lung volumes with bibasilar bronchovascular crowding and subsegmental atelectasis. No focal consolidation. Please note the posterior lower lobes are poorly evaluated by portable radiography. Stable cardiomediastinal silhouette. No pleural effusion or pneumothorax. IMPRESSION: 1. Bibasilar subsegmental atelectasis. No additional focal airspace disease or other acute cardiopulmonary process. Procedures Date of Exam: 12/05/16 CT ABDOMEN/PELVIS W PROCEDURE: CT abdomen and pelvis with contrast. TECHNIQUE: Multiple contiguous axial images were obtained through the abdomen and pelvis after administration of intravenous contrast. INDICATION: Air under the right hemidiaphragm concerning for pneumoperitoneum versus colonic air. 100 mL of Omnipaque 350 is administered intravenously. FINDINGS: There are bilateral small pleural effusions with bibasilar atelectasis. There is a moderate ascites seen. There is a rectal tube and a suprapubic catheter. The colon demonstrates moderate gaseous distention and moderate amount of fecal material. There is thickening and enhancement in the colonic wall involving mostly the rectosigmoid, may relate to colitis or could be part of the generalized edema and ascites. There is no bowel obstruction. There is no free peritoneal air. The liver, the gallbladder, the spleen, the adrenal glands and the pancreas appear unremarkable. The kidneys have symmetric enhancement and excretion. No hydronephrosis. No enhancing masses demonstrated. The abdominal aorta is normal in caliber. No para-aortic significantly enlarged lymph nodes seen. The osseous structures demonstrate deformities at the hip joints with chronic destruction of the proximal femur on both sides and deep soft tissue ulcers to the level of the ischium bilaterally. There are deformities and sclerotic changes seen in the proximal femoral shaft on both sides with hyperostosis. The bone destruction of the femoral head and neck is new from 2014 on the right side and chronic on the left. Sclerotic changes in the proximal femur and in the ischium bilaterally is probably related to chronic osteomyelitis. IMPRESSION: 1. Moderate ascites and bilateral small pleural effusions. There is generalized subcutaneous tissue edema around the abdomen also. 2. Colonic wall thickening most prominent in the distal colon. It could be also colonic edema and related to ascites or possibly from colitis. 3. No pneumoperitoneum. The air under the diaphragm seen on chest x-ray appears to relate to colonic gaseous distention. 4. Chronic appearing erosions in the pelvis and upper femurs with deep soft tissue ulcer seen. Assessment/Plan Assessment/Plan Admission Dx Severe Sepsis Multiple Decubitus Wounds Severe Anemia likely mixed iron Def with chronic disease Severe PEM Abnormal UA Hypocalcemia Hypokalemia Paraplegia Chronic indwelling Suprapubic Catheter Plan 61 yo paraplegic M that presents with large decubitus ulcers in Severe Sepsis Severe Sepsis: Resolved - Continue antibiotics for wound healing C.Diff 2/3 - no prior hx of C. diff infection; start po Vanc due to the risk of severe disease (age >60, alb <2.5) Multiple Decubitus Wounds - Wound care consulted, appreciate recs Pulmonary Edema: Resolved Severe Anemia likely mixed iron Def with chronic disease: Stable - s/p 3 units - + fecal occult 2/3 - Hb 7.6, repeat in am 2/5 - labs every other day to minimize blood loss Elevated INR: Improving, continue to monitor - s/p FFP and Vit K Elevated Bilirubin: Improving - Likely 2/2 hemolysis from sepsis Severe PEM - Add protein shake for improved wound healing Hypocalcemia: Stable Hypokalemia: Resolved Paraplegia - PT ordered Chronic indwelling Suprapubic Catheter: routine care FEN: Regular diet with protein shake with meals DVT PPX: SCDs Dispo: Transferred to 4th floor 12/07/16 Social: Patient currently has guardian that is moving out of state soon. It is not a family member. Mr Hartley states that he would like to go home with his daughter but that has not been an option with his guardian. This daughter has not been up to that hospital and I have been unable to get a hold of her. Another daughter was present this afternoon and I went to talk to her and Mr Hartley. She seemed to get very upset when her father stated that he is not willing to get surgery if that is what is recommended. At this time Mr Hartley is not ready to change his code status. 2 - Per SANDRA, prior guardian is no longer active guardian, plans to hotline to [facility] to obtain new guardian. SANDRA discussed ezekiel/ Boo that pt will be discharged back to NH from . 12/09 - discharge back to NH when no longer having watery stools, can continue wound care at [facility] Diagnosis/Problems: Clinical Quality Measures DVT/VTE Risk/Contraindication: Risk Factor Score Per Nursin RFS Level Per Nursing on Admit: 4+=Very High PRESTON STILL MD Dec 09, 2016 11:01
[2016-12-09] MEDS ORDERED: SODIUM CHLORIDE (ADD-VANTAGE) 250 ML ONE (20:36)
[2016-12-10] MEDS: PIPERACILLIN SODIUM/TAZOBACTAM 4.5 GM in NS (IVPB) 100 ML IV SCH ×3 (00:15→16:50)
[2016-12-10] MEDS: VANCOMYCIN ORAL 250 MG/5 ML 60 ML PO SCH ×8 (02:32→20:49)
[2016-12-10] MEDS: CYCLOBENZAPRINE 10 MG (FLEXERIL) TAB PO SCH ×3 (06:01→21:00)
[2016-12-10 08:37] VITALS: BP 120/87
[2016-12-10] MEDS: SERTRALINE 100 MG (ZOLOFT) TAB PO SCH (08:52)
[2016-12-10] MEDS: PANTOPRAZOLE 40 MG/10 ML (PROTONIX) VIAL IV SCH ×2 (08:52→21:00)
[2016-12-10] MEDS: OXYBUTYNIN (DITROPAN) 5 MG TAB PO SCH ×2 (08:52→21:00)
[2016-12-10] MEDS: VANCOMYCIN 1 GM/NS 250 ML IVPB IV SCH ×2 (08:59)
--- NOTE | 2016-12-10 11:05 | Progress Note-Hospitalist ---
Standard Progress Note Progress Notes/Assess & Plan Date Seen 12/10/16 Diagnosis The patient is known to me through visits to the emergency room. He is a 61- year-old black male paraplegic from the group home. He presented with severe sepsis as a result of large decubiti on his sacrum and trochanters. He has been seen through wound care. He has been a very poor performer. He has refused further the group home staff effort to clean out the decubiti. On presentation his ulcers were packed with stool. He has been treated here with IV antibiotics. The cultures revealed a multitude of bad actors from the microbial world. He has been cleared by Dr. Killian of wound care service for discharge back to the nursing facility. Physical exam: We have a slender pleasant black male who is not much engaged in his disease or his role in the treatment of it. Lungs are clear to auscultation. CV is regular without murmur. Impression: 1.severe sepsis. 2.paraplegia. 3.severe pressure ulcers and trochanters iliac prominences and sacrum SHANELLE MARY MD Dec 10, 2016 11:05
--- NOTE | 2016-12-10 11:11 | Physical Therapy Progress Note ---
Therapy Progress Note Patient declined PT this a.m. stating, "I've been like this for 5 yrs and I'm pretty strong. I can do things myself." PT educated on importance of OOB activity and exercise and patient continued to decline treatment. 1 ref ALEXA NAYLOR PT Dec 10, 2016 11:11
[2016-12-10] MEDS ORDERED: CIPR-225 PO (13:18)
--- NOTE | 2016-12-10 13:20 | Discharge Inst-Simple/Standard ---
Discharge Inst-Standard Patient Instructions/Follow Up Plan of Care/Instructions/FU: Wound care as previously scheduled. Wound care service in facility as previously arranged Activity as Tolerated: Yes Goal: Healing of decubiti Discharge Diet: No Restrictions Planned Outpatient Orders/Ref. Pneu Vac Indicated: Yes SHANELLE MARY MD Dec 10, 2016 13:20
--- NOTE | 2016-12-10 14:22 | Physical Therapy Progress Note ---
Therapy Progress Note Patient declined PT this p.m. stating he was returning to CT. 1 ref ALEXA NAYLOR PT Dec 10, 2016 14:22
[2016-12-10 16:42] VITALS: BP 111/83
[2016-12-10] MEDS ORDERED: TROUGH ORDER-PHARMACY XX NR (19:00)
[2016-12-11 00:30] VITALS: BP 113/80
[2016-12-11] MEDS: PIPERACILLIN SODIUM/TAZOBACTAM 4.5 GM in NS (IVPB) 100 ML IV SCH (01:05)
[2016-12-11] MEDS: VANCOMYCIN ORAL 250 MG/5 ML 60 ML PO SCH ×4 (02:34→10:07)
[2016-12-11] MEDS: CYCLOBENZAPRINE 10 MG (FLEXERIL) TAB PO SCH (06:34)
[2016-12-11 08:23] VITALS: BP 135/99
[2016-12-11] MEDS ORDERED: ACID1TAB5 PO (09:25)
[2016-12-11] MEDS: PANTOPRAZOLE 40 MG/10 ML (PROTONIX) VIAL IV SCH (10:43)
[2016-12-11] MEDS: OXYBUTYNIN (DITROPAN) 5 MG TAB PO SCH (10:43)
[2016-12-11] MEDS: SERTRALINE 100 MG (ZOLOFT) TAB PO SCH (10:43)
--- NOTE | 2016-12-11 10:49 | Discharge Summary-Hospitalist ---
Diagnosis/Chief Complaint Date of Admission Dec 03, 2016 at 18:41 Date of Discharge Discharge Date: Dec 10, 2016 Admission Diagnosis The patient is known to me through visits to the emergency room. He is a 61- year-old black male paraplegic from the long-term. He presented with severe sepsis as a result of large decubiti on his sacrum and trochanters. He has been seen through wound care. He has been a very poor performer. He has refused further the long-term staff effort to clean out the decubiti. On presentation his ulcers were packed with stool. He has been treated here with IV antibiotics. The cultures revealed a multitude of bad actors from the microbial world. He has been cleared by Dr. Killian of wound care service for discharge back to the nursing facility. Physical exam: We have a slender pleasant black male who is not much engaged in his disease or his role in the treatment of it. Lungs are clear to auscultation. CV is regular without murmur. Impression: 1.severe sepsis. 2.paraplegia. 3.severe pressure ulcers and trochanters iliac prominences and sacrum Discharge Diagnosis Severe Sepsis Multiple Decubitus Wounds actively infected Severe Anemia likely mixed iron Def with chronic disease Severe PEM Abnormal UA Hypocalcemia Hypokalemia Paraplegia Chronic indwelling Suprapubic Catheter Poor prognosis long-term but resistant to DNR or Hospice Reason Hospital Visit/Course Notes from 12/11/2016: pondman: RN states that pt is stable for DC. SW Review: Pt will not agree to DNR Patient Interview: Dr. Villanueva discusses DC with pt. Pt is ready for DC. Dr. Villanueva discusses arranging wound care with pt. Physical exam stable. Dr. Villanueva informs pt that he will continue antibiotics for the next 5 days, along with a probiotic. Plan: Cipro po BID for 5 days Lactinex Out-pt wound care at [facility] DC to long-term Scribed by Franklyn Baldwin under the direct supervision of Dr. Villanueva. Hospital course: Patient had a lengthy hospital course the majority of it requiring ICU admission due to severe sepsis, requiring aggressive IV fluid resuscitation and broad-spectrum antibiotics, from multiple sources including indwelling catheter with chronic and acute UTI along with infected decubitus ulcers due to paralysis pressure ulcers. Overall he responded to treatment but long-term prognosis remains very poor considering the resistant organisms that he is becoming infected with making it more more difficult to treat but will try to do everything we can do heel his decubitus ulcers with wound care we'll discharge to long-term for full support and the loose stools will be managed with Lactinex after C. difficile was negative and it was attributed to antibiotic associated diarrhea. He will have close follow-up with [facility] his primary care provider but prognosis remains poor. Discharge Summary Discharge Physical Examination Allergies: Coded Allergies: No Known Drug Allergies (Verified , 05/19/14) Vitals & I&Os Vital Signs Date Time Temp Pulse Resp B/P Pulse Ox O2 Delivery O2 Flow Rate FiO2 12/11/16 08:23 97.8 87 12 135/99 98 Room Air 12/07/16 08:05 3.00 Hospital Course Labs (last 24 hrs) Microbiology 12/03/16 Blood Culture - Final, Complete No growth 12/06/16 C. difficile GDH Antigen & Toxins - Final, Complete 12/03/16 Urine Culture - Final, Complete Providencia Stuartii Proteus Mirabilis 12/03/16 Gram Stain - Final, Complete 12/03/16 Wound Culture - Final, Complete Escherichia Coli Enterobacter Cloacae Enterococcus Faecium Pseudomonas Aeruginosa Staphylococcus Aureus Discharge Home Medications: Active Scripts Active Lactinex Chewable Tablet (L. Acidophilus/Bulgaricus) 1 Each Tab.chew 1 Each PO BID Cipro (Ciprofloxacin HCl) 500 Mg Tablet 500 Mg PO TWICE A DAY Reported [Zinc Barrier Cream] TOP BID APPLY TO OPEN AREAS ON PENIS AND SCROTUM Dakin's (Sodium Hypochlorite) 473 Ml Solution TOP BID APPLY TO WOUND BEDS EVERY DAY AND THREAD TOOL GRINDER SET UP OPERATOR FOR WOUND CARE, CLEANSE WOUNDS WITH WOUND CLEANSER, LIGHTLY PACK WOUNDS WITH DAKINS SOAKED GAUZE, COVER WITH MAINTENANCE DRESSING Dulcolax (Bisacodyl) 10 Mg Supp.rect 10 Mg RC DAILY PRN Sertraline HCl 100 Mg Tablet 100 Mg PO DAILY Hydrocodon-Acetaminophn 10-325 (Hydrocodone/Acetaminophen) 1 Each Tablet 1 Tab PO Q4H Docusate Sodium 100 Mg Capsule 100 Mg PO Q12H PRN Cyclobenzaprine HCl 10 Mg Tablet 10 Mg PO Q8H Oxybutynin Chloride ER (Oxybutynin Chloride) 10 Mg Tab.er.24 10 Mg PO DAILY Mylanta Max Strength Liquid (Mag Hydrox/Al Hydrox/Simeth) 360 Ml Oral.susp 30 Ml PO Q4H PRN Miralax 17 Gm Packet (Polyethylene Glycol) 17 Gm Pack 17 Gm PO DAILY PRN Senokot Tab (Senna) 8.6 Mg Tab 1-4 Tab PO DAILY PRN Instructions to patient/family Please see electonic discharge instructions given to patient. Clinical Quality Measures DVT/VTE Risk/Contraindication: Risk Factor Score Per Nursin RFS Level Per Nursing on Admit: 4+=Very High TOI VILLANUEVA DO Dec 11, 2016 10:49
[2016-12-11 14:08] VITALS: BP 135/99
[2016-12-11] MEDS ORDERED: PANTOPRAZOLE 40 MG (PROTONIX) TAB PO SCH (21:00)
== END 2016-12-11 14:09 | DRG 871 ==
LOC: EDUNIT# 15:49 → ER 15:50 → ICU 18:41 → 4TH 12-07 12:11
PROVIDERS: ADMIT Family Medicine; ATTEND Family Medicine
PROC: 02HV33Z Insertion of Infusion Device into Superior Vena Cava, Percutaneous Approach (ICD-10-PCS; principal; 2016-12-03)
DX: A41.9 Sepsis, unspecified organism (principal); L89.154 Pressure ulcer of sacral region, stage 4; L89.214 Pressure ulcer of right hip, stage 4; L89.224 Pressure ulcer of left hip, stage 4; L89.894 Pressure ulcer of other site, stage 4; M86.9 Osteomyelitis, unspecified; E43 Unspecified severe protein-calorie malnutrition; G82.20 Paraplegia, unspecified; J98.11 Atelectasis; E83.51 Hypocalcemia; E87.6 Hypokalemia; D50.9 Iron deficiency anemia, unspecified; D63.8 Anemia in other chronic diseases classified elsewhere
CPT/HCPCS: 36415; 71010; 74177; 80048; 80053; 80202; 81000; 82274; 82330; 82728; 82962; 83540; 83605; 83735; 84100; 84484; 85007; 85018; 85025; 85027; 85610; 85730; 86850; 86900; 86901; 86922; 87040; 87070; 87077; 87088; 87186; 87205; 87324; 87449; 94640; 94760; 96361; 96365

== ENCOUNTER 2017-02-04 12:50 | Inpatient (IN) | payer MEDICAID ==
[2017-02-04] VITALS (8 sets, daily range): BP systolic 79–103; BP diastolic 63–73
[~2017-02-04] VITALS: Ht 172.7 cm; Wt 52.3 kg
[~2017-02-04 12:50] MED LIST changes: +ACID1TAB5 PO; +CIPR-225 PO; +DIPH25TA65 PO; +SERT100T8 PO; +SODI473S7 TOP; +[UNRECOGNIZED DRUG - OTHER] TOP
[2017-02-04] MEDS ORDERED: NS IV 1000 ML 1,000 ML IV ONE ×3 (13:31→17:30)
[2017-02-04 13:38] LABS: KETONES,URINE 3+ (NEGATIVE); LEUKOCYTE ESTERASE ,URINE 3+ (NEGATIVE); NITRITE,URINE NEGATIVE (NEGATIVE); PH,URINE 6 (5-9); PROTEIN,URINE 2+ (NEGATIVE); UROBILINOGEN,URINE 1 MG/DL (NORMAL)
--- NOTE | 2017-02-04 13:39 | ED General ---
General Chief Complaint: General Problems/Pain Stated Complaint: SHORTNESS OF BREATH Nursing Triage Note: PT TO ED FROM [facility] WITH C/O COUGH, MALAISE, AND GENERALLY NOT FEELING WELL. FAMILY REPORTS THAT THEY DONT THINK PT HAS BEEN CARED FOR PROPERLY. PT IS DROWSY AT THIS TIME AND APPEARS TO BE SOME WHAT INCOHERENT. Nursing Sepsis Screen: Possible Severe Sepsis Risk Source of Information: Patient Exam Limitations: No Limitations History of Present Illness Time Seen by Provider: 13:39 Allergies and Home Medications Allergies Coded Allergies: No Known Drug Allergies (Verified , 05/19/14) Home Medications Bisacodyl 10 Mg Supp.rect, 10 MG RC DAILY PRN for CONSTIPATION, (Reported) Ciprofloxacin HCl 500 Mg Tablet, 500 MG PO TWICE A DAY, #10 Prescribed by: SHANELLE MARY on 12/10/16 1318 Cyclobenzaprine HCl 10 Mg Tablet, 10 MG PO Q8H, (Reported) Docusate Sodium 100 Mg Capsule, 100 MG PO Q12H PRN for CONSTIPATION, (Reported) Hydrocodone/Acetaminophen 1 Each Tablet, 1 TAB PO Q4H, (Reported) L. Acidophilus/Bulgaricus 1 Each Tab.chew, 1 EACH PO BID, #60 Prescribed by: TOI VILLANUEVA on 12/11/16 0925 Mag Hydrox/Al Hydrox/Simeth 360 Ml Oral.susp, 30 ML PO Q4H PRN for INDIGESTION, (Reported) Oxybutynin Chloride 10 Mg Tab.er.24, 10 MG PO DAILY, (Reported) Polyethylene Glycol 17 Gm Pack, 17 GM PO DAILY PRN for CONSTIPATION, (Reported) Senna 8.6 Mg Tab, 1-4 TAB PO DAILY PRN for CONSTIPATION, (Reported) Sertraline HCl 100 Mg Tablet, 100 MG PO DAILY, (Reported) Sodium Hypochlorite 473 Ml Solution, TOP BID, (Reported) APPLY TO WOUND BEDS EVERY DAY AND INFORMATION SECURITY ENGINEER FOR WOUND CARE, CLEANSE WOUNDS WITH WOUND CLEANSER, LIGHTLY PACK WOUNDS WITH DAKINS SOAKED GAUZE, COVER WITH MAINTENANCE DRESSING [Zinc Barrier Cream] , TOP BID, (Reported) APPLY TO OPEN AREAS ON PENIS AND SCROTUM Past Dzukyth-Siapyl-Wssjwb Hx Patient Social History Alcohol Use: Denies Use Recreational Drug Use: Yes (smokes weed) Smoking Status: Unknown if Ever Smoked Former Smoker/When Quit: Aug 15, 2010 2nd Hand Smoke Exposure: No Recent Foreign Travel: No Contact w/Someone Who Travel: No Recent Infectious Disease Expo: No Recent Hopitalizations: No Immunizations Up To Date Date of Influenza Vaccine: Aug 14, 2016 Seasonal Allergies Seasonal Allergies: No Surgeries HX Surgeries: Yes (WD SURGERIES) Respiratory Hx Respiratory Disorders: No Cardiovascular Hx Cardiac Disorders: No Neurological Hx Neurological Disorders: Yes (PARAPLEGIC) Reproductive System Hx Reproductive Disorders: No Sexually Transmitted Disease: No Genitourinary Hx Genitourinary Disorders: Yes (HEMATURIA) Gastrointestinal Hx Gastrointestinal Disorders: No Musculoskeletal Hx Musculoskeletal Disorders: Yes (ARTHRITIS) Musculoskeletal Disorders: Arthritis, Scoliosis Endocrine Hx Endocrine Disorders: No HEENT HX ENT Disorders: Yes Loss of Vision: Denies Hearing Impairment: Denies Cancer Hx Cancer: No Psychosocial Hx Psychiatric Problems: Yes Integumentary HX Skin/Integumentary Disorder: Yes (MULTIPLE DECUB) Blood Transfusions Hx Blood Disorders: No Family Medical History Significant Family History: No Pertinent Family Hx Family Medial History: Patient reports no known family medical history. Physical Exam Vital Signs Vital Sign - Last 12Hours 02/04/17 13:00 Temp 95.4 Pulse 92 Resp 14 B/P (MAP) 93/72 Pulse Ox 94 O2 Delivery Room Air Capillary Refill : Less Than 3 Seconds Focused Exam Lactic Acid Level Laboratory Tests Test 02/04/17 13:25 Lactic Acid Level 1.37 MMOL/L (0.50-2.00) Progress/Results/Core Measures Results/Orders Lab Results Laboratory Tests Test 02/04/17 13:25 Range/Units White Blood Count 4.3 4.3-11.0 10^3/uL Red Blood Count 3.77 L 4.35-5.85 10^6/uL Hemoglobin 10.3 L 13.3-17.7 G/DL Hematocrit 32 L 40-54 % Mean Corpuscular Volume 84 80-99 FL Mean Corpuscular Hemoglobin 27 25-34 PG Mean Corpuscular Hemoglobin Concent 33 32-36 G/DL Red Cell Distribution Width 24.1 H 10.0-14.5 % Platelet Count 75 L 130-400 10^3/uL Mean Platelet Volume 10.9 H 7.4-10.4 FL Neutrophils (%) (Auto) 71 42-75 % Lymphocytes (%) (Auto) 25 12-44 % Monocytes (%) (Auto) 5 0-12 % Eosinophils (%) (Auto) 0 0-10 % Basophils (%) (Auto) 0 0-10 % Neutrophils # (Auto) 3.1 1.8-7.8 X 10^3 Lymphocytes # (Auto) 1.1 1.0-4.0 X 10^3 Monocytes # (Auto) 0.2 0.0-1.0 X 10^3 Eosinophils # (Auto) 0.0 0.0-0.3 10^3/uL Basophils # (Auto) 0.0 0.0-0.1 10^3/uL Prothrombin Time 28.2 H 12.2-14.7 SEC INR Comment 2.7 H 0.8-1.4 Activated Partial Thromboplast Time 62 H 24-35 SEC D-Dimer 0.78 H 0.00-0.49 UG/ML Urine Color MIKAYLA H Urine Clarity VERY CLOUDY H Urine pH 6 5-9 Urine Specific [place] 1.020 1.016-1.022 Urine Protein 2+ H NEGATIVE Urine Glucose (UA) NEGATIVE NEGATIVE Urine Ketones 3+ H NEGATIVE Urine Nitrite NEGATIVE NEGATIVE Urine Bilirubin 1+ H NEGATIVE Urine Urobilinogen 1 NORMAL MG/DL Urine Leukocyte Esterase 3+ H NEGATIVE Urine RBC (Auto) 4+ H NEGATIVE Urine RBC 0-2 /HPF Urine WBC 50-100 H /HPF Urine Crystals PRESENT H /LPF Urine Amorphous Sediment FEW JAYME URATES H /LPF Urine Bacteria FEW H /HPF Urine Casts PRESENT /LPF Urine Hyaline Casts 0-2 H /LPF Urine Mucus MODERATE H /LPF Urine Yeast LARGE H /HPF Urine Culture Indicated YES Sodium Level 137 135-145 MMOL/L Potassium Level 3.6 3.6-5.0 MMOL/L Chloride Level 105 98-107 MMOL/L Carbon Dioxide Level 24 21-32 MMOL/L Anion Gap 8 5-14 MMOL/L Blood Urea Nitrogen 21 H 7-18 MG/DL Creatinine 0.87 0.60-1.30 MG/DL Estimat Glomerular Filtration Rate > 60 BUN/Creatinine Ratio 24 Glucose Level 76 70-105 MG/DL Lactic Acid Level 1.37 0.50-2.00 MMOL/L Calcium Level 6.7 L 8.5-10.1 MG/DL Total Bilirubin 0.7 0.1-1.0 MG/DL Aspartate Amino Transf (AST/SGOT) 190 H 5-34 U/L Alanine Aminotransferase (ALT/SGPT) 63 H 0-55 U/L Alkaline Phosphatase 136 40-136 U/L Total Protein 7.1 6.4-8.2 G/DL Albumin 1.3 L 3.2-4.5 G/DL Free Thyroxine 0.40 L 0.70-1.48 NG/DL TSH Holder Testing 12.33 H 0.35-4.94 UIU/ML Smear Scan My Orders Orders - IRVING MINAYA Cbc With Automated Diff (02/04/17 13:31) Comprehensive Metabolic Panel (02/04/17 13:31) Fibrin Degradation Products (02/04/17 13:31) Lactic Acid Analyzer (02/04/17 13:31) Thyroid Analyzer (02/04/17 13:31) Ua Culture If Indicated (02/04/17 13:31) Blood Culture (02/04/17 13:31) Saline Lock/Iv-Start (02/04/17 13:31) Chest 1 View, Ap/Pa Only (02/04/17 13:31) Ns Iv 1000 Ml (Sodium Chloride 0.9%) (02/04/17 13:31) Protime With Inr (02/04/17 13:48) Partial Thromboplastin Time (02/04/17 13:48) Urine Culture (02/04/17 13:25) Free T4 (Free Thyroxine) (02/04/17 13:25) Wound Culture (02/04/17 14:50) Ns Iv 1000 Ml (Sodium Chloride 0.9%) (02/04/17 14:50) Vancomycin Injection (Vancomycin Injecti (02/04/17 15:00) Medications Given in ED Current Medications Medications Dose Ordered Sig/Dorothy Route Start Time Stop Time Status Last Admin Dose Admin Sodium Chloride 1,000 ml @ 0 mls/hr Q0M ONCE IV 02/04/17 13:31 02/04/17 13:33 DC 02/04/17 13:46 0 MLS/HR Sodium Chloride 1,000 ml @ 0 mls/hr Q0M ONCE IV 02/04/17 14:50 02/04/17 14:51 DC 02/04/17 14:59 0 MLS/HR Vancomycin HCl 1000 mg/Sodium Chloride 250 ml @ 250 mls/hr ONCE ONCE IV 4/3/17 15:00 02/04/17 15:59 02/04/17 14:58 250 MLS/HR Vital Signs/I&O Vital Sign - Last 12Hours 02/04/17 13:00 Temp 95.4 Pulse 92 Resp 14 B/P (MAP) 93/72 Pulse Ox 94 O2 Delivery Room Air Blood Pressure Mean: 79 Departure Departure-Patient Inst. Referrals: JEFF CLOUD MD (PCP/Family) Primary Care Physician IRVING MINAYA Feb 04, 2017 13:39
[2017-02-04 13:41] LABS: BASOPHILS % (AUTO) 0 % (0-10); EOSINOPHILS % (AUTO) 0 % (0-10); LYMPHOCYTES # (AUTO) 1.1 X 10^3 (1.0-4.0); LYMPHOCYTES % (AUTO) 25 % (12-44); MEAN CORPUSCULAR HEMOGLOBIN 27 PG (25-34); MEAN CORPUSCULAR HGB CONC 33 G/DL (32-36); MEAN CORPUSCULAR VOLUME 84 FL (80-99); MEAN PLATELET VOLUME 10.9 FL (7.4-10.4); MONOCYTES # (AUTO) 0.2 X 10^3 (0.0-1.0); MONOCYTES % (AUTO) 5 % (0-12); NEUTROPHILS # (AUTO) 3.1 X 10^3 (1.8-7.8); NEUTROPHILS % (AUTO) 71 % (42-75); PLATELET COUNT 75 10^3/uL (130-400); RED BLOOD COUNT 3.77 10^6/uL (4.35-5.85); RED CELL DISTRIBUTION WIDTH 24.1 % (10.0-14.5); WHITE BLOOD COUNT 4.3 10^3/uL (4.3-11.0)
[2017-02-04 13:56] LABS: BILIRUBIN,URINE 1+ (NEGATIVE); HYALINE CASTS, URINE 0-2 /LPF; WBC,URINE 50-100 /HPF; YEAST,URINE LARGE /HPF
[2017-02-04 13:58] LABS: ALANINE AMINOTRANSFERASE 63 U/L (0-55); ALBUMIN 1.3 G/DL (3.2-4.5); ANION GAP 8 MMOL/L (5-14); ASPARTATE AMINO TRANSFERASE 190 U/L (5-34); BILIRUBIN,TOTAL 0.7 MG/DL (0.1-1.0); BLOOD UREA NITROGEN 21 MG/DL (7-18); BUN/CREATININE RATIO 24; CALCIUM 6.7 MG/DL (8.5-10.1); CARBON DIOXIDE 24 MMOL/L (21-32); CHLORIDE 105 MMOL/L (98-107); CREATININE SERUM 0.87 MG/DL (0.60-1.30); GFR ESTIMATED > 60; GLUCOSE 76 MG/DL (70-105); POTASSIUM 3.6 MMOL/L (3.6-5.0); SODIUM 137 MMOL/L (135-145); TOTAL PROTEIN 7.1 G/DL (6.4-8.2)
[2017-02-04 14:09] LABS: INR 2.7 (0.8-1.4); PROTHROMBIN TIME PATIENT 28.2 SEC (12.2-14.7)
--- NOTE | 2017-02-04 14:42 | Diagnostic Imaging Report ---
INDICATION: Cough, malaise, incoherence. Compared 12/07/2016. FINDINGS: There are bilateral five lobe infiltrates having developed. Mid/ lower lung opacity on the right and basilar opacities on the left have improved at those levels; however, upper lobe disease has increased. Lung volumes substantially improved. There is a much better inspiratory lung volume. The heart size within normal limits. IJ catheter has been removed. IMPRESSION: Five lobe infiltrates, edema versus pneumonia, in the setting of a markedly improved inspiratory lung volume. Resolution of vascular congestion, resolution of previous pleural fluid, and resolution of prior basilar atelectasis. Dictated by: Dictated on workstation # [id number]
[2017-02-04] MEDS ORDERED: VANCOMYCIN INJECTION 1,000 MG in NS (IVPB) 250 ML IV ONE (15:00)
[2017-02-04] MEDS ORDERED: RT-ALBUTEROL/IPRATROPIUM 3 ML (DUONEB) VIAL ONE (15:27)
[2017-02-04] MEDS ORDERED: NS IV 1000 ML 1,000 ML ONE (17:20)
[2017-02-04] MEDS ORDERED: ACID1TAB5 PO (17:23)
[2017-02-04] MEDS ORDERED: ACET325T49 PO (17:23)
[2017-02-04] MEDS ORDERED: IBUP-1779 PO (17:23)
[2017-02-04] MEDS ORDERED: LEVO500T2 PO (17:23)
[2017-02-04] MEDS ORDERED: ALBU2.5V4 IH (17:23)
[2017-02-04] MEDS ORDERED: MAGN400O7 PO (17:23)
[2017-02-04] MEDS: LACTOBACILLUS Acidoph/Bulgar (LACTINEX/FLORANEX) TAB PO SCH ×2 (17:25→21:00)
[2017-02-04] MEDS ORDERED: ACETAMINOPHEN 650 MG SUPP (TYLENOL) PR PRN (17:30)
[2017-02-04] MEDS ORDERED: ONDANSETRON 4 MG/2 ML (SDV) Z0FRAN IV PRN (17:30)
[2017-02-04] MEDS ORDERED: CATHETER FLUSH 10 ML SYR IV PRN (17:30)
[2017-02-04] MEDS: NS IV 1000 ML 1,000 ML IV SCH ×2 (17:36→21:26)
[2017-02-04] MEDS: NS IV SCH (17:37)
[2017-02-04] MEDS: FLUCONAZOLE IV SCH (17:37)
--- NOTE | 2017-02-04 18:37 | Pulmonary Consultation ---
History of Present Illness History of Present Illness Date of Consultation 02/04/17 18:32 Date of Admission History of Present Illness 61yo AAM with hx of paralysis from [facility] presents secondary to MS change and cough. Pt is currently lethargic unable to answer questions. CXR shows infiltrates bilateral infiltrates and UA shows UTI. Pt has no leukocytosis however meets SIRS criteria with low temp and HR. Pt has been hypotensive however currently his BP is 91/71 and has only received 2 liters NS. I am consulted for ICU management. Allergies and Home Medications Allergies Coded Allergies: No Known Drug Allergies (Verified , 05/19/14) Home Medications Acetaminophen 325 Mg Tablet, 650 MG PO Q8H PRN for MILD PAIN, (Reported) NOT TO EXCEED 3000MG/24HR Albuterol Sulfate 2.5 Mg/3 Ml Vial.neb, 2.5 MG IH Q6H PRN for SHORTNESS OF BREATH, (Reported) Bisacodyl 10 Mg Supp.rect, 10 MG RC DAILY PRN for CONSTIPATION, (Reported) Cyclobenzaprine HCl 10 Mg Tablet, 10 MG PO TID@0000,0800,1600, (Reported) Docusate Sodium 100 Mg Capsule, 100 MG PO Q12H PRN for CONSTIPATION, (Reported) Hydrocodone/Acetaminophen 1 Each Tablet, 1 TAB PO QID, (Reported) Ibuprofen 400 Mg Tablet, 400 MG PO Q6H PRN for PAIN, (Reported) ALSO TAKES NEEDED FOR FEVER L. Acidophilus/Bulgaricus 1 Each Tab.chew, 1 TAB PO BID, (Reported) Levofloxacin 500 Mg Tablet, 500 MG PO DAILY, (Reported) STARTED 02/01/17 FOR A 10 DAY THERAPY Mag Hydrox/Al Hydrox/Simeth 360 Ml Oral.susp, 30 ML PO Q4H PRN for INDIGESTION, (Reported) Magnesium Hydroxide 400 Mg/5 Ml Oral.susp, 30 ML PO Q12H PRN for CONSTIPATION, ( Reported) Oxybutynin Chloride 10 Mg Tab.er.24, 10 MG PO DAILY, (Reported) Sertraline HCl 100 Mg Tablet, 100 MG PO DAILY, (Reported) Sodium Hypochlorite 473 Ml Solution, TOP BID, (Reported) APPLY TO WOUND BEDS EVERY DAY AND PLY SPLICER FOR WOUND CARE, CLEANSE WOUNDS WITH WOUND CLEANSER, LIGHTLY PACK WOUNDS WITH DAKINS SOAKED GAUZE, COVER WITH MAINTENANCE DRESSING Past Xtkkdjd-Gocdfm-Ierqli Hx Patient Social History Alcohol Use: Denies Use Recreational Drug Use: Yes Drug of Choice: MARIJUANA OCCASIONALLY Smoking Status: Never a Smoker Former Smoker/When Quit: Aug 15, 2010 2nd Hand Smoke Exposure: No Recent Foreign Travel: No Contact w/Someone Who Travel: No Recent Infectious Disease Expo: No Recent Hopitalizations: No Physical Abuse Screen: No Sexual Abuse: No Immunizations Up To Date PED Vaccines UTD: No Date of Influenza Vaccine: Aug 14, 2016 Seasonal Allergies Seasonal Allergies: No Surgeries HX Surgeries: Yes (WD SURGERIES) Respiratory Hx Respiratory Disorders: No Cardiovascular Hx Cardiac Disorders: No Neurological Hx Neurological Disorders: Yes (PARAPLEGIC) Reproductive System Hx Reproductive Disorders: No Sexually Transmitted Disease: No Genitourinary Hx Genitourinary Disorders: Yes (HEMATURIA) Genitourinary Disorders: Neurogenic Bladder Gastrointestinal Hx Gastrointestinal Disorders: No Musculoskeletal Hx Musculoskeletal Disorders: Yes (ARTHRITIS) Musculoskeletal Disorders: Arthritis, Scoliosis Endocrine Hx Endocrine Disorders: No HEENT HX ENT Disorders: Yes Loss of Vision: Denies Hearing Impairment: Denies Cancer Hx Cancer: No Psychosocial Hx Psychiatric Problems: Yes Integumentary HX Skin/Integumentary Disorder: Yes (MULTIPLE DECUB) Blood Transfusions Hx Blood Disorders: No Family Medical History Significant Family History: No Pertinent Family Hx Family Medial History: Patient reports no known family medical history. Exam Exam Vital Signs Date Time Temp Pulse Resp B/P (MAP) Pulse Ox O2 Delivery O2 Flow Rate FiO2 02/04/17 18:00 86 14 87/72 100 OxyMask 6.00 02/04/17 17:00 89 17 92/73 100 OxyMask 6.00 02/04/17 16:50 95.1 80 13 91/70 100 OxyMask 6.00 02/04/17 16:50 95.4 88 16 100 6.00 02/04/17 15:34 100 6.00 02/04/17 13:00 95.4 92 14 93/72 94 Room Air Capillary Refill: Less Than 3 Seconds Results Lab Laboratory Tests 02/04/17 13:25 Assessment/Plan Assessment/Plan -Sepsis secondary to UTI and pneumonia -will give another liter IVF bolus -- BP is responding to IVF -Continue vanco and add zosyn Anemia with coagulopathy - does not appear he was on anticoagulation as outpatient -monitor -monitor HB -Hx of paralysis/debility Clinical Quality Measures DVT/VTE Risk/Contraindication: Risk Factor Score Per Nursin RFS Level Per Nursing on Admit: 4+=Very High ROCHELLE ZARAGOZA DO Feb 04, 2017 18:37
[2017-02-04] MEDS: PIPERACILLIN SODIUM/TAZOBACTAM 4.5 GM in NS (IVPB) 100 ML IV NR ×2 (18:47→19:52)
[2017-02-04] MEDS: FAMOTIDINE 20MG/2ML IV (PEPCID) IV SCH (19:52)
[2017-02-04] MEDS ORDERED: RT-ALBUTEROL/IPRATROPIUM 3 ML (DUONEB) VIAL INH PRN (20:30)
[2017-02-04 22:20] LABS: MEAN PLATELET VOLUME 11.4 FL (7.4-10.4); RED BLOOD COUNT 2.94 10^6/uL (4.35-5.85); RED CELL DISTRIBUTION WIDTH 22.9 % (10.0-14.5); WHITE BLOOD COUNT 3.4 10^3/uL (4.3-11.0)
[2017-02-04] MEDS: RT-ALBUTEROL/IPRATROPIUM 3 ML (DUONEB) VIAL INH SCH (22:20)
[2017-02-04] MEDS ORDERED: ALBUMIN 5% 12.5 GM/250 ML 500 ML IV ONE ×2 (23:44→23:45)
[2017-02-05] VITALS (29 sets, daily range): BP systolic 49–130; BP diastolic 36–98
[2017-02-05] MEDS: PIPERACILLIN/TAZOBACTAM 4.5 GM/NS 100 ML IVPB IV SCH ×6 (01:16→23:50)
[2017-02-05] MEDS: RT-ALBUTEROL/IPRATROPIUM 3 ML (DUONEB) VIAL INH SCH ×6 (02:13→23:05)
[2017-02-05 02:46] LABS: BASOPHILS % (AUTO) 0 % (0-10); EOSINOPHILS % (AUTO) 0 % (0-10); LYMPHOCYTES # (AUTO) 0.8 X 10^3 (1.0-4.0); LYMPHOCYTES % (AUTO) 29 % (12-44); MEAN CORPUSCULAR HEMOGLOBIN 28 PG (25-34); MEAN CORPUSCULAR HGB CONC 32 G/DL (32-36); MEAN CORPUSCULAR VOLUME 85 FL (80-99); MONOCYTES # (AUTO) 0.1 X 10^3 (0.0-1.0); MONOCYTES % (AUTO) 3 % (0-12); NEUTROPHILS # (AUTO) 1.8 X 10^3 (1.8-7.8); NEUTROPHILS % (AUTO) 67 % (42-75); PLATELET COUNT 41 10^3/uL (130-400); RED BLOOD COUNT 2.79 10^6/uL (4.35-5.85); RED CELL DISTRIBUTION WIDTH 23.7 % (10.0-14.5); WHITE BLOOD COUNT 2.6 10^3/uL (4.3-11.0)
[2017-02-05 03:00] LABS: INR 3.1 (0.8-1.4); PROTHROMBIN TIME PATIENT 31.7 SEC (12.2-14.7)
[2017-02-05 03:13] LABS: ALANINE AMINOTRANSFERASE 54 U/L (0-55); ALBUMIN 1.9 G/DL (3.2-4.5); ANION GAP 8 MMOL/L (5-14); ASPARTATE AMINO TRANSFERASE 140 U/L (5-34); BLOOD UREA NITROGEN 16 MG/DL (7-18); BUN/CREATININE RATIO 24; CALCIUM 6.3 MG/DL (8.5-10.1); CARBON DIOXIDE 20 MMOL/L (21-32); CHLORIDE 114 MMOL/L (98-107); CREATININE SERUM 0.68 MG/DL (0.60-1.30); GFR ESTIMATED > 60; GLUCOSE 72 MG/DL (70-105); MAGNESIUM 1.7 MG/DL (1.8-2.4); POTASSIUM 3.2 MMOL/L (3.6-5.0); SODIUM 142 MMOL/L (135-145); TOTAL PROTEIN 6.3 G/DL (6.4-8.2)
[2017-02-05 03:20] LABS: TROPONIN I < 0.30 NG/ML (<0.30)
[2017-02-05] MEDS ORDERED: ALBUMIN 5% 12.5 GM/250 ML 500 ML IV ONE ×2 (05:19→06:00)
[2017-02-05] MEDS: NS IV 1000 ML 1,000 ML IV SCH ×2 (05:23→14:53)
[2017-02-05] MEDS: FAMOTIDINE 20MG/2ML IV (PEPCID) IV SCH ×2 (05:30→18:00)
[2017-02-05] MEDS: LACTOBACILLUS Acidoph/Bulgar (LACTINEX/FLORANEX) TAB PO SCH ×4 (06:00→21:00)
[2017-02-05] MEDS: POTASSIUM CL 10MEQ/50ML IVPB 50 ML IV SCH ×5 (06:00→14:53)
[2017-02-05] MEDS: KCL 20 MEQ TAB (K-DUR) PO SCH (06:00)
[2017-02-05] MEDS: MAGNESIUM 1 GM/100 ML IVPB 100 ML IV SCH ×3 (06:00→08:17)
[2017-02-05] MEDS ORDERED: VITAMIN K 1 MG/ML ORAL SOLN 1 ML SYRINGE PO NR (07:30)
--- NOTE | 2017-02-05 07:46 | Pulmonary Progress Note ---
Subjective Subjective/Events-last exam c/o SOB Exam Exam Vital Signs Date Time Temp Pulse Resp B/P (MAP) Pulse Ox O2 Delivery O2 Flow Rate FiO2 02/05/17 06:00 86 21 99/73 93 Nasal Cannula 2.00 02/05/17 05:00 88 24 99/69 93 Nasal Cannula 2.00 02/05/17 04:00 85 20 102/75 93 Nasal Cannula 2.00 02/05/17 04:00 95 2.00 02/05/17 03:00 88 21 97/63 94 Nasal Cannula 2.00 02/05/17 02:14 95 2.00 02/05/17 02:00 86 23 92 Nasal Cannula 2.00 02/05/17 01:00 82 02/05/17 01:00 82 17 105/74 96 Nasal Cannula 2.00 02/05/17 00:00 90 13 103/76 85 Nasal Cannula 2.00 02/05/17 00:00 95 2.00 02/04/17 23:00 81 24 90/69 95 OxyMask 6.00 02/04/17 22:24 100 4.00 02/04/17 22:00 84 17 79/63 100 OxyMask 6.00 02/04/17 21:00 83 16 95/71 100 OxyMask 6.00 02/04/17 20:21 100 6.00 02/04/17 20:18 100 02/04/17 20:00 100 6.00 02/04/17 20:00 97.8 84 18 103/67 100 OxyMask 6.00 02/04/17 19:00 85 02/04/17 19:00 86 21 93/71 100 OxyMask 6.00 02/04/17 18:00 86 14 87/72 100 OxyMask 6.00 02/04/17 17:00 89 17 92/73 100 OxyMask 6.00 02/04/17 16:50 95.1 80 13 91/70 100 OxyMask 6.00 02/04/17 16:50 95.4 88 16 100 6.00 02/04/17 15:34 100 6.00 02/04/17 13:00 95.4 92 14 93/72 94 Room Air I & O 02/05/17 07:00 Intake Total 5350 ml Output Total 690 ml Balance 4660 ml Capillary Refill: Less Than 3 Seconds Results Lab Laboratory Tests 02/04/17 13:25 02/04/17 22:14 02/05/17 02:30 Assessment/Plan Assessment/Plan -Sepsis secondary to UTI and pneumonia -Continue vanco, diflucan, and zosyn Anemia with coagulopathy -worsening -Transfuse 1 unit PRBC, 2 FFP, 6pk platelets, and 10mg of vitamin K -monitor -monitor HB Worsening bilateral infiltrates - pulmonary edema secondary to IVF -monitor close -Will get picc line Hypothyroid -Start synthroid -Hx of paralysis/debility -pancytopenia Overall pt's prognosis is very poor. I recommend comfort care. Will consult hospice care consultant Clinical Quality Measures DVT/VTE Risk/Contraindication: Risk Factor Score Per Nursin RFS Level Per Nursing on Admit: 4+=Very High ROCHELLE ZARAGOZA DO Feb 05, 2017 07:46
--- NOTE | 2017-02-05 09:57 | Diagnostic Imaging Report ---
Portable erect AP chest at 4:43 AM. INDICATION: Dyspnea. The prior exam of 02/04/2017, did note alveolar/interstitial pulmonary infiltrates involving both lungs. On this exam the density throughout both lungs has increased, particularly in both upper lobes and the left perihilar region. The heart is stable in size. The mediastinum is not widened. The osseous structures are intact. There is still distention of both the large and small bowel by gas. IMPRESSION: The appearance of the chest has worsened since the prior study as there is greater involvement of both lungs by alveolar/interstitial pulmonary infiltrates. A followup exam would be recommended for continued evaluation. Dictated by: Dictated on workstation # [id number]
--- NOTE | 2017-02-05 10:13 | Diagnostic Imaging Report ---
INDICATION: PICC line placement. Frontal chest obtained at 9:51 a.m. and compared to same day at 4:43 a.m. Heart is borderline in size. Extensive bilateral alveolar infiltrates are again noted and similar to the prior study. There is no pneumothorax or pleural fluid. There is interposition of right colonic loops in the right upper quadrant. There is a new right-sided PICC line, tip is just into the right atrium. Recommend pulling it back about 2.5 cm for distal SVC placement. IMPRESSION: New right-sided PICC line tip is just into the right atrium. Recommend pulling it back about 2.5 cm for distal SVC placement. Extensive bilateral infiltrates are unchanged. Report was stat faxed to ICU @ [facility] in [place], [place] @ 10:12 AM/alicia. Dictated by: Dictated on workstation # [id number]
[2017-02-05] MEDS ORDERED: fentaNYL INJECTION 100 MCG/2 ML AMP IVP PRN (10:15)
--- NOTE | 2017-02-05 11:10 | History & Physical-Hospitalist ---
HPI History of Present Illness: HPI/Chief Complaint CC: Sepsis from pneumonia and decubitus ulcers with UTI HPI: This is a 61yoAAM known to me from frequent hospitalization with hx of paralysis that presented after failed Levaquin ABX for pneumonia while residing at [facility]. He has been treated at wound care and placed on Ampicillin and Doxy so he presented with sepsis and hypotension, Pt was placed on Zosyn and Vanc but pt is declining rapidly. Chart Review: Pt remains afebrile, BP 99/73, WBC 2.6, Hgb 7.7, Plts 41k, K+ 3.2 , Creat 0.68, BNP 158, INR 3.1, Urine culture shows yeast, Pt receiving 2 units of FFP sales promotion representative: Palliative care consult has been entered. Pt is receiving plasma and unit of blood. Palliative Care: Pt had failed Levaquin at [facility]. Pt has paralysis. Patient Interview: Pt nods no when asked if he is doing well. Pt is in distress currently. Physical exam was stable. Pt will receive pain meds for his pain. Scribed by Deric Moncada under the direct supervision of Dr. Souza. Source: patient Exam Limitations: clinical condition Date Seen 02/05/17 Attending Physician Barb Souza David F MD Referring Physician Date of Admission Feb 04, 2017 at 15:35 Home Medications & Allergies Home Medications Reviewed patient Home Medication Reconciliation Form Allergies Allergies Coded Allergies No Known Drug Allergies (Verified05/19/14) Past Edhdtcz-Hsawxn-Aoyrkd Hx Patient Social History Alcohol Use: Denies Use Recreational Drug Use: Yes Drug of Choice: MARIJUANA OCCASIONALLY Smoking Status: Never a Smoker Former smoker/When Quit: Aug 15, 2010 2nd Hand Smoke Exposure: No Physical Abuse Screen: No Sexual Abuse: No Recent Foreign Travel: No Contact w/other who traveled: No Recent Hopitalizations: No Recent Infectious Disease Expo: No Immunizations Up To Date Date of Influenza Vaccine: Aug 14, 2016 Seasonal Allergies Seasonal Allergies: No Surgeries HX Surgeries: Yes (WD SURGERIES) Respiratory Hx Respiratory Disorders: No Cardiovascular Hx Cardiovascular Disorders: No Neurological Hx Neurological Disorders: Yes (PARAPLEGIC) Neurological Disorders: Paralysis Reproductive System Hx Reproductive Disorders: No Sexually Transmitted Disease: No Genitourinary Hx Genitourinary Disorders: Yes (HEMATURIA) Genitourinary Disorders: Neurogenic Bladder Gastrointestinal Hx Gastrointestinal Disorders: No Musculoskeletal Hx Musculoskeletal Disorders: Yes (ARTHRITIS) Musculoskeletal Disorders: Arthritis, Scoliosis Endocrine Hx Endocrine Disorders: No HEENT HX ENT Disorders: Yes Loss of Vision: Denies Hearing Impairment: Denies Cancer Hx Cancer: No Psychosocial Hx Psychiatric Problems: Yes Integumentary HX Skin/Integumentary Disorder: Yes (MULTIPLE DECUB) Blood Transfusions Hx Blood Disorders: No Family Medical History Significant Family History: No Pertinent Family Hx Family Hx: Patient reports no known family medical history. Review of Systems ROS-Unable to Obtain: Unable to ascertain due to discomfort and end of life status Constitutional: see HPI Physical Exam Physical Exam Vital Signs Vital Sign - Last 12Hours 02/04/17 02/04/17 13:00 15:34 Temp 95.4 Pulse 92 Resp 14 B/P (MAP) 93/72 Pulse Ox 94 O2 Delivery Room Air O2 Flow Rate 6.00 Capillary Refill : Less Than 3 Seconds General Appearance: Chronically ill, Moderate Distress (due to pain) Neck: Full Range of Motion, Normal Inspection, Non Tender, Supple Respiratory: Chest Non Tender, Crackles, Decreased Breath Sounds, Wheezing Cardiovascular: Tachycardia Neurologic/Psychiatric: Disoriented x3, Other (partially unresponsive) Skin: Cool, Cyanosis Lymphatic: No Adenopathy Results Results/Procedures Lab Laboratory Tests 02/04/17 13:25 02/04/17 22:14 02/05/17 02:30 Assessment/Plan Admission Diagnosis Assessment: sepsis requiring IV fluid resuscitation and broad-spectrum antibiotics but it appears to be progressing to the point of end-of-life status Chronic paraplegia Suprapubic catheter Decubitus ulcers Assessment and Plan Plan: Fentanyl for pain Needs Palliative Care Very poor prognosis Clinical Quality Measures DVT/VTE Risk/Contraindication: Risk Factor Score Per Nursin RFS Level Per Nursing on Admit: 4+=Very High BARB SOUZA DO Feb 05, 2017 11:10
[2017-02-05] MEDS: FLUCONAZOLE IV SCH (14:56)
[2017-02-05] MEDS: NS IV SCH (14:56)
[2017-02-05 15:02] LABS: INR 2.7 (0.8-1.4); PROTHROMBIN TIME PATIENT 28.3 SEC (12.2-14.7)
[2017-02-05] MEDS ORDERED: NOREPINEPHRINE 4 MG/4 ML (LEVOPHED) AMP IV ONE (17:13)
[2017-02-05] MEDS ORDERED: D5W 250 ML (IVPB) 250 ML IV ONE (17:15)
[2017-02-05] MEDS: NOREPINEPHRINE 4 MG in D5W 250 ML (IVPB) 250 ML IV SCH (17:28)
[2017-02-05] MEDS ORDERED: NS (IVPB) 250 ML ONE (20:08)
[2017-02-05 21:30] LABS: ABG BASE EXCESS -8.4 MMOL/L (-2.5-2.5); ABG HCO3 19 MMOL/L (23-27); ABG OXYGEN SATURATION 66 % (94-100); ABG PCO2 57 MMHG (35-45); ABG PO2 43 MMHG (79-93)
[2017-02-05 21:32] LABS: ABG PH 7.15 (7.37-7.43); ALLENS TEST POSITIVE
[2017-02-05 21:33] LABS: PATIENT TEMP 97.4
[2017-02-06] VITALS (21 sets, daily range): BP systolic 40–144; BP diastolic 21–92
[2017-02-06] MEDS: NS IV 1000 ML 1,000 ML IV SCH ×2 (00:33→07:47)
[2017-02-06] MEDS ORDERED: NS (IVPB) 250 ML IV ONE (00:45)
[2017-02-06] MEDS: NOREPINEPHRINE 4 MG in D5W 250 ML (IVPB) 250 ML IV SCH ×2 (01:57→10:13)
[2017-02-06] MEDS: RT-ALBUTEROL/IPRATROPIUM 3 ML (DUONEB) VIAL INH SCH ×4 (02:05→14:15)
[2017-02-06 04:06] LABS: BASOPHILS % (AUTO) 0 % (0-10); EOSINOPHILS % (AUTO) 0 % (0-10); LYMPHOCYTES # (AUTO) 0.5 X 10^3 (1.0-4.0); LYMPHOCYTES % (AUTO) 9 % (12-44); MEAN CORPUSCULAR HEMOGLOBIN 28 PG (25-34); MEAN CORPUSCULAR HGB CONC 32 G/DL (32-36); MEAN CORPUSCULAR VOLUME 87 FL (80-99); MONOCYTES # (AUTO) 0.1 X 10^3 (0.0-1.0); MONOCYTES % (AUTO) 2 % (0-12); NEUTROPHILS # (AUTO) 5.2 X 10^3 (1.8-7.8); NEUTROPHILS % (AUTO) 89 % (42-75); PLATELET COUNT 61 10^3/uL (130-400); RED BLOOD COUNT 3.44 10^6/uL (4.35-5.85); RED CELL DISTRIBUTION WIDTH 21.5 % (10.0-14.5); WHITE BLOOD COUNT 5.8 10^3/uL (4.3-11.0)
[2017-02-06 04:38] LABS: ANION GAP 12 MMOL/L (5-14); BLOOD UREA NITROGEN 11 MG/DL (7-18); BUN/CREATININE RATIO 16; CALCIUM 6.6 MG/DL (8.5-10.1); CARBON DIOXIDE 15 MMOL/L (21-32); CHLORIDE 117 MMOL/L (98-107); CREATININE SERUM 0.68 MG/DL (0.60-1.30); GFR ESTIMATED > 60; GLUCOSE 136 MG/DL (70-105); MAGNESIUM 2.3 MG/DL (1.8-2.4); PHOSPHORUS 2.9 MG/DL (2.3-4.7); POTASSIUM 3.6 MMOL/L (3.6-5.0); SODIUM 144 MMOL/L (135-145)
[2017-02-06 05:05] LABS: BAND NEUTROPHILS 16 %; BASOPHILS % (MANUAL) 0 %; EOSINOPHILS % (MANUAL) 0 %; HYPOCHROMASIA MARKED; LYMPHOCYTES % (MANUAL) 13 %; NEUTROPHILS % (MANUAL) 69 %; POIKILOCYTOSIS SLIGHT; POLYCHROMASIA SLIGHT
[2017-02-06 05:06] LABS: ANISOCYTOSIS MARKED; MICROCYTOSIS SLIGHT; TARGET CELLS MODERATE
[2017-02-06] MEDS: POTASSIUM CL 10MEQ/50ML IVPB 50 ML IV SCH ×3 (05:53→06:55)
[2017-02-06] MEDS: LACTOBACILLUS Acidoph/Bulgar (LACTINEX/FLORANEX) TAB PO SCH ×2 (06:00→10:13)
[2017-02-06] MEDS: KCL 20 MEQ TAB (K-DUR) PO SCH (06:00)
[2017-02-06] MEDS: MAGNESIUM 1 GM/100 ML IVPB 100 ML IV SCH (06:00)
[2017-02-06] MEDS: FAMOTIDINE 20MG/2ML IV (PEPCID) IV SCH (06:11)
[2017-02-06] MEDS ORDERED: LEVOTHYROXINE 75 MCG (LEVOTHROID) TABLET PO SCH (06:30)
--- NOTE | 2017-02-06 06:51 | Pulmonary Progress Note ---
Subjective Subjective/Events-last exam Pt is currently requiring BiPAP. Family at bedside. He is currently No Code but ok for intubation. Exam Exam Vital Signs Date Time Temp Pulse Resp B/P (MAP) Pulse Ox O2 Delivery O2 Flow Rate FiO2 02/06/17 06:00 87 21 108/62 99 NIV Bilevel 60.00 02/06/17 05:00 70 23 144/77 94 NIV Bilevel 60.00 02/06/17 04:14 91 32 100 60.00 02/06/17 04:00 69 31 125/70 91 NIV Bilevel 60.00 02/06/17 04:00 100 NIV/Bilevel 60 02/06/17 03:00 66 14 110/59 88 NIV Bilevel 60.00 02/06/17 02:05 86 25 100 90.00 02/06/17 02:00 68 13 132/72 89 NIV Bilevel 90.00 02/06/17 01:00 71 14 137/68 88 NIV Bilevel 90.00 02/06/17 00:08 88 17 100 100.00 02/06/17 00:00 100 NIV/Bilevel 100 02/06/17 00:00 96.9 89 16 124/85 100 NIV Bilevel 100.00 02/05/17 23:05 84 21 96 100.00 02/05/17 23:00 86 17 73/55 86 Simple Mask 11.00 02/05/17 22:00 Simple Mask 11.00 02/05/17 22:00 86 23 90/57 80 Nasal Cannula 2.00 02/05/17 21:00 85 22 74/57 78 Nasal Cannula 2.00 02/05/17 21:00 Simple Mask 11.00 02/05/17 20:00 87 23 66/46 84 Nasal Cannula 2.00 02/05/17 20:00 Simple Mask 11.00 02/05/17 20:00 85 Nasal Cannula 11.00 02/05/17 19:32 96.8 87 21 89/63 90 11.00 02/05/17 19:00 87 22 84/65 87 Nasal Cannula 2.00 02/05/17 19:00 89 10.00 02/05/17 19:00 96.9 High Flow N/C 11.00 02/05/17 19:00 86 02/05/17 18:00 86 26 105/72 88 Nasal Cannula 2.00 02/05/17 17:00 84 23 93/75 86 Nasal Cannula 2.00 02/05/17 16:34 97.1 86 18 80/57 100 5.00 02/05/17 16:31 97.1 86 20 80/57 100 5.00 02/05/17 16:00 91 Nasal Cannula 7.00 02/05/17 16:00 82 16 49/36 95 Nasal Cannula 2.00 02/05/17 15:00 85 23 81/59 94 Nasal Cannula 2.00 02/05/17 14:28 92 8.00 02/05/17 14:00 80 22 77/62 90 Nasal Cannula 2.00 02/05/17 13:00 27 130/98 Nasal Cannula 2.00 02/05/17 13:00 78 02/05/17 12:00 91 Nasal Cannula 6.00 02/05/17 12:00 82/55 Nasal Cannula 2.00 02/05/17 12:00 96.9 02/05/17 11:30 88 18 90/62 91 02/05/17 11:15 98 8.00 02/05/17 11:00 86 32 84/62 88 Nasal Cannula 2.00 02/05/17 10:00 97 24 79/56 90 Nasal Cannula 2.00 02/05/17 09:00 83 23 94 Nasal Cannula 2.00 02/05/17 08:50 81 16 96/64 92 5.00 02/05/17 08:33 98.8 80 18 89/64 91 5.00 02/05/17 08:00 91 Nasal Cannula 6.00 02/05/17 08:00 89 27 96/64 89 Nasal Cannula 2.00 02/05/17 07:34 98.8 02/05/17 07:30 93 9.00 02/05/17 07:00 91 21 82/61 Nasal Cannula 2.00 02/05/17 07:00 90 I & O 02/06/17 07:00 Intake Total 2355 ml Output Total 575 ml Balance 1780 ml General Appearance: Chronically ill, Moderate Distress Neck: Full Range of Motion, Normal Inspection, Non Tender, Supple Respiratory: Chest Non Tender, Crackles, Decreased Breath Sounds, Wheezing Cardiovascular: Tachycardia Capillary Refill: Less Than 3 Seconds Neurologic/Psychiatric: Disoriented x3, Other (partially unresponsive) Skin: Cool, Cyanosis Lymphatic: No Adenopathy Results Lab Laboratory Tests 02/04/17 13:25 02/04/17 22:14 02/05/17 02:30 02/06/17 03:55 Assessment/Plan Assessment/Plan -Sepsis secondary to UTI and pneumonia - diflucan, zosyn Anemia with coagulopathy -worsening -monitor -monitor HB Worsening bilateral infiltrates - pulmonary edema secondary to IVF -monitor close -Will get picc line Hypothyroid -Start synthroid -Hx of paralysis/debility -pancytopenia Overall pt's prognosis is very poor. I recommend comfort care. Clinical Quality Measures DVT/VTE Risk/Contraindication: Risk Factor Score Per Nursin RFS Level Per Nursing on Admit: 4+=Very High ROCHELLE ZARAGOZA DO Feb 06, 2017 06:51
[2017-02-06 07:23] LABS: ABG BASE EXCESS -6.9 MMOL/L (-2.5-2.5); ABG HCO3 19 MMOL/L (23-27); ABG OXYGEN SATURATION 30 % (94-100); ABG PCO2 43 MMHG (35-45); ABG TCO2 20.4 MMOL/L (21.0-31.0)
[2017-02-06 07:24] LABS: ABG PO2 21 MMHG (79-93); ALLENS TEST YES-POS
[2017-02-06 07:25] LABS: PATIENT TEMP 96.9
[2017-02-06 07:30] LABS: ABG PH 7.26 (7.37-7.43)
[2017-02-06] MEDS: PIPERACILLIN/TAZOBACTAM 4.5 GM/NS 100 ML IVPB IV SCH ×2 (07:47)
--- NOTE | 2017-02-06 07:49 | Diagnostic Imaging Report ---
INDICATION: Followup sepsis. COMPARISON: 02/05/2017 FINDINGS: Single frontal radiographic view of the chest was obtained and demonstrates stable cardiac silhouette. Pulmonary vasculature is essentially obscured. Right upper extremity PICC line tip terminates at the cavoatrial junction. Lungs continue to show diffuse patchy and confluent alveolar opacities throughout, bilaterally. There has been interval increase in confluent opacification of the right midlung partially obscuring the right hilar region. No large effusion or pneumothorax is seen. Bony structures show no acute interval change. IMPRESSION: 1. Persistent diffuse bilateral infiltrates with interval increase in dense consolidation of the right mid lung. Continued followup is recommended. Dictated by: Dictated on workstation # [id number]
--- NOTE | 2017-02-06 08:38 | ECHOCARDIOGRAPHY REPORT ---
PROCEDURE PHYSICIAN: XIANG OCAMPO DATE OF PROCEDURE: 02/05/2017 TWO DIMENSIONAL ECHOCARDIOGRAM REPORT PRIMARY PHYSICIAN: OTHER PHYSICIAN: REFERRING PHYSICIAN: ORDERING PHYSICIAN: ATTENDING PHYSICIAN: Dr. Souza FAMILY PHYSICIAN: READING PHYSICIAN: Dr. Cee Ocampo INDICATION FOR THE PROCEDURE: 1. Sepsis. 2. UTI. 3. Volume depletion. MEASUREMENTS DERIVED VALUES LV DIAMETER (LAX) NORMALS NORMALS Diastolic (3.6-5.2) Eject. Fract. (60%+/-6%) Systolic (2.3-3.9) Diastolic Vol. % Shortening (0.22-0.42) Systolic Vol. Aortic Root IVS THICKNESS Diastolic (0.6-1.1) LVPW THICKNESS Diastolic (0.6-1.1) LA DIAMETER Systolic (2.1-3.7) FINDINGS: 1. This is technically a very difficult study. 2. Normal left atrium. 3. Aortic root is normal. 4. Left ventricular systolic function is normal. Left ventricular ejection fraction is 55%. No LVH is present. 5. RV is normal. 6. There is no evidence of pericardial effusion. 7. Diastolic evaluation was not performed. 8. IVC was not well visualized. VALVULAR STRUCTURE OF THE HEART: There is mild aortic sclerosis with no significant aortic stenosis. There is no other valvular heart disease noted. RVSP is 31 mmHg. CONCLUSION: 1. This is a very technically difficult study. 2. LV and RV size and function is normal. 3. LV EF is 55 to 60%. 4. There is no significant valvular heart disease. 5. There is mild pulmonary hypertension with RVSP of 31 mmHg. Job ID: [id number] Dictated Date: 02/05/2017 14:53:42 Construction Project Administrator Date: 02/06/2017 08:35:51 / tbling
[2017-02-06] MEDS: NS IV SCH (08:43)
[2017-02-06] MEDS: FLUCONAZOLE IV SCH (08:43)
[2017-02-06] MEDS ORDERED: LEVOTHYROXINE 100 MCG INJ (SYNTHROID) VIAL IV SCH (09:00)
[2017-02-06] MEDS ORDERED: NS IV 1000 ML 1,000 ML IV ONE (11:00)
--- NOTE | 2017-02-06 12:05 | Progress Note-Hospitalist ---
Progress Note HPI/CC on Admission CC: Sepsis from pneumonia and decubitus ulcers with UTI HPI: This is a 61yoAAM known to me from frequent hospitalization with hx of paralysis that presented after failed Levaquin ABX for pneumonia while residing at [facility]. He has been treated at wound care and placed on Ampicillin and Doxy so he presented with sepsis and hypotension, Pt was placed on Zosyn and Vanc but pt is declining rapidly. Chart Review: Pt remains afebrile, BP 99/73, WBC 2.6, Hgb 7.7, Plts 41k, K+ 3.2 , Creat 0.68, BNP 158, INR 3.1, Urine culture shows yeast, Pt receiving 2 units of FFP baler operator: Palliative care consult has been entered. Pt is receiving plasma and unit of blood. Palliative Care: Pt had failed Levaquin at [facility]. Pt has paralysis. Patient Interview: Pt nods no when asked if he is doing well. Pt is in distress currently. Physical exam was stable. Pt will receive pain meds for his pain. Scribed by Deric Moncada under the direct supervision of Dr. Souza. Progress Notes/Assess & Plan Date Seen 02/06/17 Admission Dx/Process Assessment: sepsis requiring IV fluid resuscitation and broad-spectrum antibiotics but it appears to be progressing to the point of end-of-life status Chronic paraplegia Suprapubic catheter Decubitus ulcers Diagonsis/Assessment & Plan Chart Review: No fever, BP low 98/57, WBC 5.8, Hgb 9.5, Plts 61k received 2 units of FFP and one unit of blood, one button of platelets Dr. Boothe Review: Pt received blood transfusion yesterday. baler operator: Pt was almost intubated last night. Pt is on BiPAP 40%. SW Review: Pt could have last night. Pt was full code. Pt family is now here and may change their mind. Palliative Care Review: One son thinks his dad is saying "no more." A daughter is wanting pt to continue his treatment currently. Patient Interview: Pt can nod when asked questions. Physical exam was stable. Pt denies pain. Scribed by Deric Moncada under the direct supervision of Dr. Souza. Frail, alert, on biPAP RRR, CTAB diminished breath sounds Assessment: Sepsis requiring IV fluid resuscitation and broad-spectrum antibiotics but it appears to be progressing to the point of end-of-life status Chronic paraplegia Suprapubic catheter Decubitus ulcers Pancytopenia Plan: Fentanyl for pain Needs Palliative Care Very poor prognosis TOI SOUZA DO Feb 06, 2017 12:05
--- NOTE | 2017-02-06 13:06 | Pulmonary Progress Note ---
Standard Progress Note Progress Notes Assessment & Plan -Sepsis secondary to UTI and pneumonia - diflucan, zosyn Anemia with coagulopathy -worsening -monitor -monitor HB Worsening bilateral infiltrates - pulmonary edema secondary to IVF -monitor close -Will get picc line Hypothyroid -Start synthroid -Hx of paralysis/debility -pancytopenia Overall pt's prognosis is very poor. I recommend comfort care. I had a long discussion with patients family. I explained to them patients overall extensive critical condition. I answered all questions and I gave family the choices available. I believe they are going to make him comfort care only however they are awaiting a few more family members. ROCHELLE ZARAGOZA DO Feb 06, 2017 13:06
[2017-02-06] MEDS: LORazepam INJ 2 MG/ML (ATIVAN) VIAL IVP PRN ×2 (15:34→16:29)
[2017-02-06] MEDS: morphine INJ 4 MG/ML 1 ML (VIAL/SYRINGE) IVP PRN ×2 (15:34→16:30)
--- NOTE | 2017-02-06 17:28 | Discharge Summary-Hospitalist ---
Diagnosis/Chief Complaint Date of Admission Feb 04, 2017 at 15:35 Date of Discharge Admission Diagnosis Assessment: sepsis requiring IV fluid resuscitation and broad-spectrum antibiotics but it appears to be progressing to the point of end-of-life status Chronic paraplegia Suprapubic catheter Decubitus ulcers Discharge Diagnosis Assessment: Sepsis causing multi-system organ failure and subsequent Chronic paraplegia Suprapubic catheter Decubitus ulcers Pancytopenia Chart Review: No fever, BP low 98/57, WBC 5.8, Hgb 9.5, Plts 61k received 2 units of FFP and one unit of blood, one button of platelets Dr. Boothe Review: Pt received blood transfusion yesterday. body engineer: Pt was almost intubated last night. Pt is on BiPAP 40%. SW Review: Pt could have last night. Pt was full code. Pt family is now here and may change their mind. Palliative Care Review: One son thinks his dad is saying "no more." A daughter is wanting pt to continue his treatment currently. Patient Interview: Pt can nod when asked questions. Physical exam was stable. Pt denies pain. Scribed by Deric Moncada under the direct supervision of Dr. Souza. Frail, alert, on biPAP RRR, CTAB diminished breath sounds Assessment: Sepsis requiring IV fluid resuscitation and broad-spectrum antibiotics but it appears to be progressing to the point of end-of-life status Chronic paraplegia Suprapubic catheter Decubitus ulcers Pancytopenia Plan: Fentanyl for pain Needs Palliative Care Very poor prognosis Reason Hospital Visit/Course CC: Sepsis from pneumonia and decubitus ulcers with UTI HPI: This is a 61yoAAM known to me from frequent hospitalization with hx of paralysis that presented after failed Levaquin ABX for pneumonia while residing at [place]. He has been treated at wound care and placed on Ampicillin and Doxy so he presented with sepsis and hypotension, Pt was placed on Zosyn and Vanc but pt is declining rapidly. Chart Review: Pt remains afebrile, BP 99/73, WBC 2.6, Hgb 7.7, Plts 41k, K+ 3.2 , Creat 0.68, BNP 158, INR 3.1, Urine culture shows yeast, Pt receiving 2 units of FFP body engineer: Palliative care consult has been entered. Pt is receiving plasma and unit of blood. Palliative Care: Pt had failed Levaquin at [place]. Pt has paralysis. Patient Interview: Pt nods no when asked if he is doing well. Pt is in distress currently. Physical exam was stable. Pt will receive pain meds for his pain. Scribed by Deric Moncada under the direct supervision of Dr. Souza. Hospital course: Patient was in significant decline when he was admitted for multi-lobar pneumonia and pancytopenia. Decubitus ulcers and overall debility caused significant decline in his status but he was aggressively treated for pneumonia and transfused with blood and platelets and FFP due to sepsis causing coagulopathy but he continued to decline and required biPAP but soon it was apparent that he was end of life and family all agreed to comfort care and he was transferred to 4th floor and within 5 minutes of arrival he . Discharge Summary Discharge Physical Examination Allergies: Coded Allergies: No Known Drug Allergies (Verified , 05/19/14) Vitals & I&Os Vital Signs Date Time Temp Pulse Resp B/P (MAP) Pulse Ox O2 Delivery O2 Flow Rate FiO2 02/06/17 14:20 NIV Bilevel 30.00 02/06/17 14:15 86 29 96 02/06/17 13:00 104/82 02/06/17 11:34 40 02/06/17 11:34 96.9 Hospital Course Labs (last 24 hrs) Laboratory Tests 02/05/17 19:19: Glucometer 106 02/05/17 21:24: Blood Gas Puncture Site RIGHT RADIAL, Blood Gas Patient Temperature 97.4, Arterial Blood pH 7.15*L, Arterial Blood Partial Pressure CO2 57H, Arterial Blood Partial Pressure O2 43L, Arterial Blood HCO3 19L, Arterial Blood Total CO2 21.0, Arterial Blood Oxygen Saturation 66L, Arterial Blood Base Excess -8.4L , Alex Test POSITIVE, Blood Gas Ventilator Setting NO, Blood Gas Inspired Oxygen 11L MASK 02/06/17 00:21: Glucometer 127H 02/06/17 03:55: White Blood Count 5.8, Red Blood Count 3.44L, Hemoglobin 9.5#L, Hematocrit 30L, Mean Corpuscular Volume 87, Mean Corpuscular Hemoglobin 28, Mean Corpuscular Hemoglobin Concent 32, Red Cell Distribution Width 21.5H, Platelet Count 61L, Mean Platelet Volume 10.0, Neutrophils (%) (Auto) 89H, Lymphocytes (%) (Auto) 9L , Monocytes (%) (Auto) 2, Eosinophils (%) (Auto) 0, Basophils (%) (Auto) 0, Neutrophils # (Auto) 5.2, Lymphocytes # (Auto) 0.5L, Monocytes # (Auto) 0.1, Eosinophils # (Auto) 0.0, Basophils # (Auto) 0.0, Neutrophils % (Manual) 69, Lymphocytes % (Manual) 13, Monocytes % (Manual) 2, Eosinophils % (Manual) 0, Basophils % (Manual) 0, Band Neutrophils 16, Polychromasia SLIGHT, Hypochromasia MARKED, Poikilocytosis SLIGHT, Anisocytosis MARKED, Microcytosis SLIGHT, Macrocytosis MARKED, Target Cells MODERATE, Sodium Level 144, Potassium Level 3.6, Chloride Level 117H, Carbon Dioxide Level 15L, Anion Gap 12, Blood Urea Nitrogen 11, Creatinine 0.68, Estimat Glomerular Filtration Rate > 60, BUN/ Creatinine Ratio 16, Glucose Level 136H, Calcium Level 6.6L, Phosphorus Level 2.9, Magnesium Level 2.3 02/06/17 06:58: Blood Gas Puncture Site LT RADIAL, Blood Gas Patient Temperature 96.9, Arterial Blood pH 7.26*L, Arterial Blood Partial Pressure CO2 43, Arterial Blood Partial Pressure O2 21*L, Arterial Blood HCO3 19L, Arterial Blood Total CO2 20.4L, Arterial Blood Oxygen Saturation 30L, Arterial Blood Base Excess -6.9L, Alex Test YES-POS, Blood Gas Ventilator Setting NO, Blood Gas Inspired Oxygen 50% BIPAP 02/06/17 14:27: Lab Scanned Report Transfusion Reaction Form Microbiology 02/04/17 Blood Culture - Preliminary, Resulted No growth 02/04/17 MRSA Screen - Final, Complete MRSA not isolated 02/04/17 Urine Culture - Preliminary, Resulted Yeast Species Proteus Species Gram Negative Michael Pending Labs Laboratory Tests 02/06/17 14:27: Lab Scanned Report Transfusion Reaction Form Discharge Home Medications: Active Scripts Active Reported Acetaminophen 325 Mg Tablet 650 Mg PO Q8H PRN NOT TO EXCEED 3000MG/24HR Lactinex Chewable Tablet (L. Acidophilus/Bulgaricus) 1 Each Tab.chew 1 Tab PO BID Levaquin (Levofloxacin) 500 Mg Tablet 500 Mg PO DAILY STARTED 02/01/17 FOR A 10 DAY THERAPY Milk of Magnesia (Magnesium Hydroxide) 400 Mg/5 Ml Oral.susp 30 Ml PO Q12H PRN Ibuprofen 400 Mg Tablet 400 Mg PO Q6H PRN ALSO TAKES NEEDED FOR FEVER Albuterol Sulfate 2.5 Mg/3 Ml Vial.neb 2.5 Mg IH Q6H PRN Dakin's (Sodium Hypochlorite) 473 Ml Solution TOP BID APPLY TO WOUND BEDS EVERY DAY AND STRUCTURAL STEEL IRONWORKER FOR WOUND CARE, CLEANSE WOUNDS WITH WOUND CLEANSER, LIGHTLY PACK WOUNDS WITH DAKINS SOAKED GAUZE, COVER WITH MAINTENANCE DRESSING Dulcolax (Bisacodyl) 10 Mg Supp.rect 10 Mg RC DAILY PRN Sertraline HCl 100 Mg Tablet 100 Mg PO DAILY Hydrocodon-Acetaminophn 10-325 (Hydrocodone/Acetaminophen) 1 Each Tablet 1 Tab PO QID Docusate Sodium 100 Mg Capsule 100 Mg PO Q12H PRN Cyclobenzaprine HCl 10 Mg Tablet 10 Mg PO TID@0000,0800,1600 Oxybutynin Chloride ER (Oxybutynin Chloride) 10 Mg Tab.er.24 10 Mg PO DAILY Mylanta Max Strength Liquid (Mag Hydrox/Al Hydrox/Simeth) 360 Ml Oral.susp 30 Ml PO Q4H PRN Instructions to patient/family Please see electonic discharge instructions given to patient. Clinical Quality Measures DVT/VTE Risk/Contraindication: Risk Factor Score Per Nursin RFS Level Per Nursing on Admit: 4+=Very High TOI SOUZA DO Feb 06, 2017 17:28
[2017-02-06] MEDS ORDERED: CATHETER FLUSH 10 ML SYR IV SCH (22:00)
--- OUTSIDE RECORDS SUMMARY | 2017-03-10 06:12 | XMS REPORT ---
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
--- OUTSIDE RECORDS SUMMARY | 2017-03-10 06:12 | XMS REPORT ---
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
--- OUTSIDE RECORDS SUMMARY | 2017-03-10 06:12 | XMS REPORT ---
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
--- OUTSIDE RECORDS SUMMARY | 2017-03-10 06:14 | XMS REPORT ---
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
--- OUTSIDE RECORDS SUMMARY | 2017-03-10 06:14 | XMS REPORT ---
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
--- OUTSIDE RECORDS SUMMARY | 2017-03-10 06:14 | XMS REPORT ---
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
--- OUTSIDE RECORDS SUMMARY | 2017-03-10 06:14 | XMS REPORT ---
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
--- OUTSIDE RECORDS SUMMARY | 2017-03-10 06:14 | XMS REPORT ---
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
--- OUTSIDE RECORDS SUMMARY | 2017-03-10 06:14 | XMS REPORT ---
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
--- OUTSIDE RECORDS SUMMARY | 2017-03-10 06:14 | XMS REPORT ---
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
--- OUTSIDE RECORDS SUMMARY | 2017-03-10 06:14 | XMS REPORT ---
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
--- OUTSIDE RECORDS SUMMARY | 2017-03-10 06:14 | XMS REPORT ---
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
--- OUTSIDE RECORDS SUMMARY | 2017-03-10 06:14 | XMS REPORT ---
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
--- OUTSIDE RECORDS SUMMARY | 2017-03-10 06:14 | XMS REPORT ---
Author Author JEFF CLOUD Organization [employer] Address Unknown Phone Unavailable Care Team Providers Care Raw Shellfish Preparer Name Role Phone JEFF CLOUD CP Unavailable Allergies No Known Allergies Problems Problem Type Condition ICD-9 Code Onset Dates Condition Status Problem Reflux esophagitis 530.11 Active Problem Rash and other nonspecific skin eruption 782.1 Active Problem Decubitus ulcer of buttock, unstageable 707.05 Active Assessment Decubitus ulcer of buttock, unstageable 707.05 Active Medications No Known Medications Procedures Procedure Coding System Code Date Stable Visit (10 minutes) CPT-4 18617 Jul 07, 2015 Results No Known Results Summary Purpose [employer]ClinicalWorks Submission
--- OUTSIDE RECORDS SUMMARY | 2017-03-10 06:15 | XMS REPORT ---
Author Author JEFF CLOUD Organization [employer] Address Unknown Phone Unavailable Care Team Providers Care Inspector Repairer [place] Name Role Phone JEFF CLOUD CP Unavailable Allergies No Known Allergies Problems Problem Type Condition Code Onset Dates Condition Status Problem Reflux esophagitis 530.11 Active Problem Rash and other nonspecific skin eruption 782.1 Active Problem Decubitus ulcer of buttock, unstageable 707.05 Active Medications Medication Code System Code Instructions Start Date End Date Status Dosage Hydrocodone-Acetaminophen [facility] [address]-58 10-325 MG every 4 hours Dec 1 tablet by Oral route every 4 hours PRN (MAY TAKE ONE TABLET HOME IF GONE FOR MORE THAN 4 HOURS) Results No Known Results Summary Purpose eClinicalWorks Submission
--- OUTSIDE RECORDS SUMMARY | 2017-03-10 06:15 | XMS REPORT ---
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
--- OUTSIDE RECORDS SUMMARY | 2017-03-10 06:15 | XMS REPORT ---
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
--- OUTSIDE RECORDS SUMMARY | 2017-03-10 06:15 | XMS REPORT ---
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
--- OUTSIDE RECORDS SUMMARY | 2017-03-10 06:15 | XMS REPORT ---
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
--- OUTSIDE RECORDS SUMMARY | 2017-03-10 06:15 | XMS REPORT ---
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
--- OUTSIDE RECORDS SUMMARY | 2017-03-10 06:15 | XMS REPORT ---
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
--- OUTSIDE RECORDS SUMMARY | 2017-03-10 06:16 | XMS REPORT ---
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
--- OUTSIDE RECORDS SUMMARY | 2017-03-10 06:16 | XMS REPORT ---
Author Author JEFF CLOUD Organization [employer] Address Unknown Phone Unavailable Care Team Providers Care Investigations Manager Name Role Phone JEFF CLOUD CP Unavailable Allergies No Known Allergies Problems Problem Type Condition Code Onset Dates Condition Status Problem Reflux esophagitis 530.11 Active Problem Rash and other nonspecific skin eruption 782.1 Active Problem Decubitus ulcer of buttock, unstageable 707.05 Active Medications Medication Code System Code Instructions Start Date End Date Status Dosage Hydrocodone-Acetaminophen [facility] [address]-91 10-325 MG every 4 hours Dec 1 tablet by Oral route every 4 hours PRN (MAY TAKE ONE TABLET HOME IF GONE FOR MORE THAN 4 HOURS) Results No Known Results Summary Purpose eClinicalWorks Submission
--- OUTSIDE RECORDS SUMMARY | 2017-03-10 06:16 | XMS REPORT ---
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
--- OUTSIDE RECORDS SUMMARY | 2017-03-10 06:16 | XMS REPORT ---
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
== END 2017-02-06 19:00 | disposition expired | DRG 871 ==
LOC: EDUNIT# 12:50 → ER 12:52 → ICU 15:35 → 4TH 02-06 16:35
PROVIDERS: ADMIT Internal Medicine; ATTEND Internal Medicine
PROC: 02HV33Z Insertion of Infusion Device into Superior Vena Cava, Percutaneous Approach (ICD-10-PCS; principal; 2017-02-05)
DX: A41.9 Sepsis, unspecified organism (principal); G82.20 Paraplegia, unspecified; J18.9 Pneumonia, unspecified organism; N39.0 Urinary tract infection, site not specified; D64.9 Anemia, unspecified; E03.9 Hypothyroidism, unspecified; D61.818 Other pancytopenia; Z51.5 Encounter for palliative care; Z66 Do not resuscitate; L89.159 Pressure ulcer of sacral region, unspecified stage
CPT/HCPCS: 36415; 36569; 71010; 76937; 80048; 80053; 81000; 82805; 82962; 83605; 83735; 83880; 84100; 84439; 84443; 84484; 85007; 85025; 85027; 85379; 85610; 85730; 86850; 86900; 86901; 86920; 87040; 87081; 87088; 93306; 94640; 94660; 94760; 96361; 96365